=== PATIENT | female | born 1960 | race Caucasian/White ===

== ENCOUNTER 2024-03-28 11:57 | Inpatient (IN) | payer MEDICARE, SELFPAY ==
[2024-03-28 11:59] VITALS: BP 124/89; PULSE 68; RESP 16; TEMP 36.8; O2SAT 97; BMI 26.4
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
[2024-03-28 12:38] LABS: Basophils # 0.1 10^3/uL (0.0-0.1); Basophils % 1.1 %; Eosinophils # 0.2 10^3/uL (0.0-0.8); Eosinophils % 3.2 %; Lymphocytes # 1.9 10^3/uL (0.8-4.8); Lymphocytes % 33.6 %; Mean Corpuscular HGB Conc 31.8 g/dL (30-55); Mean Corpuscular Hemoglobin 28.6 pg (27-33); Monocytes # 0.6 10^3/uL (0.2-0.9); Monocytes % 9.8 %; Neutrophils # 2.98 10^3/uL (1.8-7.7); Neutrophils % 52.3 %; Nucleated Red Blood Cells % 0 %; Platelet Count 264 10^3/cmm (157-399); Red Blood Count 4.89 10^6/uL (3.85-5.65); Red Cell Distribution Width 11.9 % (12.1-15.1); White Blood Count 5.69 10^3/uL (3.29-11.43)
--- NOTE | 2024-03-28 12:46 | PC.NURSE ---
PT UPSET ABOUT BEING HERE. PT REQUESTING SHOES AND STATED I WANT SHOES. EVERY OTHER PERSON HAS SHOES. PT EDUCATED ON THE NEED FOR ALL BELONGINGS TO BE REMOVED, INCLUDING SHOES, FOR PTS. PT STATED I'M NOT A PATIENT. I AM JUST SUICIDAL. PT EDUCATED THE PT ON THAT BEING THE REASON SHE IS HERE. PT STATED I AM ONLY SUICIDAL DUE TO BEING HERE. IT HURTS MY HEART. I JUST WANT TO GO HOME. PT EDUCATED SHE CANNOT GO HOME YET DUE TO BEING ON A 96 HOUR HOLD.
[2024-03-28] MEDS: LORazepam 2 mg/mL INJ 1 mL 1 MG IM (12:51)
[2024-03-28 12:54] LABS: Alanine Aminotransferase 104 U/L (0-33); Albumin Level 4.2 g/dL (3.5-5.2); Alkaline Phosphatase 159 U/L (35-105); Anion Gap 15.6 (5-19); Aspartate Amino Transferase 58 U/L (0-32); Blood Urea Nitrogen 18 mg/dL (8-23); Calcium 9.1 mg/dL (8.5-10.5); Carbon Dioxide 29 mmol/L (22-29); Chloride 98 mmol/L (98-107); Creatinine Clr Calc Pharmacy 60.6536; Globulin 3.3 g/dL (1.3-4.6); Glomerular Filtration Rate 72.2 mL/min (90-130); Glucose 102 mg/dL (65-115); Osmolality Calculated 288 mOsm/kg (285-295); Potassium 4.6 mmol/L (3.5-5.1); Sodium 138 mmol/L (136-145); Total Bilirubin 0.3 mg/dL (0.15-1.2); Total Protein 7.5 g/dL (6.6-8.7)
[2024-03-28 13:05] LABS: Acetaminophen < 5.0 ug/mL (10-30); Alcohol Level < 10 mg/dL (0-10); Salicylate < 0.3 mg/dL (3-10)
[2024-03-28 13:10] LABS: Amphetamines Screen Urine Negative (Negative); Barbiturates Screen Urine Negative (Negative); Benzodiazepines Screen Urine Negative (Negative); Cocaine Screen Urine Negative (Negative); Opiate Screen Urine Negative (Negative); PCP Screen Urine Negative (Negative); THC Screen Urine Positive (Negative)
--- NOTE | 2024-03-28 13:10 | PC.NURSE ---
96 hr rights reviewed with patient @1212 with assistance of [facility] compliance officer Joel Garcia All education reviewed at this time. Patient appears to be altered to place that she is currently in. She verbalized understanding to the hold, but does not seem to fully comprehend what the hold entails. Patient copy was left with patient. Pt had to be convinced to change out of personal clothing, with a lot of reassurance that her shoes and clothes would be returned to her at the time of her discharge. Pt states that she is not a patient here and requests that we call Officer Leydi back to take her back home. Pt denied any needs when asked.
[2024-03-28 14:30] VITALS: BP 104/47; PULSE 65; O2SAT 97
[2024-03-28 14:45] VITALS: BP 128/75; PULSE 114; RESP 17; O2SAT 94
--- NOTE | 2024-03-28 15:14 | PC.NURSE ---
NEW ORDERS RECEIVED FROM DR. OLIVER TO HAVE LAB RUN URINALYSIS WITH MICRO ON URINE THAT IS ALREADY IN LAB. LAB CALLED AND STATE THEY WILL RUN THE URINE ONCE THE ORDER IS PLACED. NOTIFIED LAB IT WAS PLACED
[2024-03-28 15:17] LABS: Bilirubin Urine Negative (Negative); Blood Urine Negative (Negative); Glucose Urine UA Negative (Normal); Ketones Urine Negative (Negative); Leukocyte Esterase Urine 1+ (Negative); Nitrate Urine Negative (Negative); Protein Urine Negative (Negative); Specific Gravity, Urine 1.016 (1.005-1.030); Urine Appearance Clear (CLEAR); Urine Color Yellow (Yellow); Urobilinogen Urine 0.2 mg/dL (Negative); pH Urine 7.5 (5-7)
[2024-03-28 15:19] LABS: Bacteria Urine None Seen /hpf; Hyaline Casts Urine 0-4 /lpf; RBC Urine 0-2 /hpf (0-2); Squamous Epithelial Cell Urine 0-5 /hpf (0-5); WBC Urine 0-5 /hpf (0-5)
[2024-03-28 15:39] LABS: Add Urine Culture? No
--- NOTE | 2024-03-28 15:41 | PC.NURSE ---
Patient brought in by police. Patient observed trying to hitch hike to [place]. Patient frequently causes 911 asking for a ride to [place]. Patient is confused. Patuient keeps asking patients for a ride to her home. Patient denies suicidal thoughts, homicidal thoughts and hallucinations. Patient fixated on going home, on a dispatcher named Kira, and Leydi, the officer who brought her to the ED
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
--- NOTE | 2024-03-28 16:15 | PC.NURSE ---
NEW ORDERS RECEIVED FROM DR. OLIVER TO RESTART LEVOTHYROXINE 125 MCGS PO DAILY AND REPEAT URINALYSIS WITH CULTURE IF INDICATED TO BE COLLECTED BY STAFF TOMORROW MORNING.
--- NOTE | 2024-03-28 17:20 | PC.NURSE ---
Patient is routinely checking the doors. Patient is perseverating on being taken to [place], on [place], and on the officer, Leydi, who brought her to the hospital.
--- NOTE | 2024-03-28 17:46 | PC.NURSE ---
Per patient's son andrey, patient has no known drug allergies
[2024-03-28] MEDS: OLANZapine 5 mg ODT PO (18:00)
[2024-03-28 19:53] VITALS: BP 125/75; PULSE 93; RESP 18; TEMP 36.9; O2SAT 97
[2024-03-28] MEDS: LORazepam 2 mg Tablet PO (21:37)
[2024-03-28] MEDS: ziprasidone hcl 20 mg Capsule PO (21:37)
[2024-03-28] MEDS: diphenhydrAMINE 50 mg Capsule PO (21:37)
--- NOTE | 2024-03-28 21:45 | PC.NURSE ---
patient in bed resting with eyes closed after PRN Ativan 2mg PO, Benadryl 50mg PO and Geodon 20mh PO. Given to patient for increased agitation / agression R/T wanting her clothes, purse and wanting to leave.
--- NOTE | 2024-03-29 06:28 | PC.NURSE ---
VS not collected per charge nurse resp 17
[2024-03-29] MEDS: levothyroxine 125 mcg Tablet PO (09:17)
[2024-03-29] MEDS: diphenhydrAMINE 50 mg/mL SDV 1mL IM (13:55)
[2024-03-29] MEDS: haloperidol inj 5 mg/mL INJ 1 mL IM (13:55)
[2024-03-29] MEDS: LORazepam 2 mg/mL INJ 1 mL IM (13:55)
[2024-03-29 14:00] VITALS: BP 133/59; PULSE 79; RESP 18; TEMP 36.9; O2SAT 94
--- NOTE | 2024-03-29 14:00 | W.PM.NPUH&PS ---
Providers/Chief Complaint Admitting Physician: Chidi Hatch MD Chief Complaint: 96 Hold [facility] NPU History of Present Illness Osiris Teran is a 63 year old female who presented to the emergency department with the following report: Chief Complaint: Psychiatric Symptoms Stated Complaint: 96 Hold Time Seen by Provider: 03/28/24 12:00 Source: patient Mode of arrival: EMS Limitations: altered mental status History of Present Illness: Patient is a 63-year-old female presents to ED today on a 96-hour hold. According to [facility] paperwork, she was repeatedly calling 911 soliciting somebody to try to drive her to [place]. When the [employer] department arrived at her house she made comments of wanting to harm herself and her son. She made a comment that she wanted to purchase a gun to shoot her son if he would not take her to [place]. She was also consulted on by our [facility] Crisis Intervention team who recommended mental health evaluation. She reportedly has dementia. She states she wants to get back to [place] as she has a job waiting for her there. She states that she needs a rifle so that when her son picks on her she can just shoot him with it. She reportedly called the [employer]'s office 42 times stating she would pay $4000 dollars for them to get her a [employer]Ha[employer] and transport her to [place]. She had been located in [facility] trying to get a ride from anybody that would take her to [place]. I did reach out to patient's son, Stone ([phone]) who provides further history. He states she has lived in [place] over the past 20 years. He states over the past 5 to 10 years they have noticed significant cognitive decline. They report she was not able to keep a job, had gotten into some drug use, at 1 point got a DUI with cocaine in her system. She started having more erratic behavior coupled with periods of high energy. She started feeling unsatisfied with living in [place] and wanted to come back to [place]. Son states they were able to purchase an RV for her and she has been here in [place] since December 2023. Stone is reportedly in the process of trying to obtain guardianship and has an appointment scheduled for 04/26. complaint: altered mental status History of same: Yes Relieving factors: none Exacerbating factors: none Treatments prior to arrival: none She was admitted to the neuropsychiatric unit for definitive treatment of those issues. She presented unknown to [facility] psychiatry through inpatient or outpatient services but is reported to have had significant outpatient and inpatient services and [place] as well as significant drug and alcohol treatment and exposure with reported long history is of methamphetamine and cocaine use. She is a poor and incapable historian as she is only able to identify where she has been and where she lives but all history she gives otherwise is inaccurate and she just continues to perseverate about wanting to leave and getting her stuff. Her son who is in town identifies that she is confused about her situation and wanting someone to take her to [place]. She reportedly called the [employer]or[employer] model [employer]'s office at least 42 times asking for a gun and reporting she was in a used a gun to kill her son if he does not take her to [place]. Stating this the police. She is offering people thousand dollars to drive her back to her place from the hospital that she does not know she is in the hospital. She denied any history of drug use which we know is an accurate and she denied using cannabis Gummies and had no explanation for the 64 mg Gummies and her belongings most of which had been already eaten and about half of the milligrams going towards actual THC. She denied THC use and reports that her son is going to take her to [place] and she needs to just get out of here. This is not the case. We discussed her considering medication. Discussing the risks, benefits and alternatives she did not understand and just continue to perseverate about leaving and whether this short story writer can take her home/out of here. Meds NPU Home Medications Medication Instructions Recorded Confirmed Last Taken Type levothyroxine 125 mcg tablet 125 mcg PO DAILY 03/28/24 03/28/24 Unknown History Allergies Allergy/AdvReac Type Severity Reaction Status Date / Time No Known Allergies Allergy Verified 03/28/24 17:46 Mental Status Exam MSE Comments: This is a well-nourished well-developed white female looking somewhat older than her stated age in hospital scrubs with limited grooming and adequate eye contact. No abnormal movements except for psychomotor agitation. Uncooperative with exam in moderate to extreme distress. Speech was normal rate and volume. Mood described as fine I do not belong here I need to go, affect odd and confused. Thought process linear and at times disorganized with continued perseveration and reasking of questions. Thought content: Patient denies suicidal or homicidal ideation, there were no delusions reported or noted, she denied auditory or visual hallucinations. Attention and concentration were impaired and memory was unreliable but none were formally tested. She is alert and oriented to person and time/date as she knows her birthday is tomorrow. Insight, judgment and impulse control are all impaired. Vitals/I&O/Wt Last Vital Signs Temp 98.4 F 03/29/24 14:00 Pulse 79 03/29/24 14:00 Resp 18 03/29/24 14:00 BP 133/59 03/29/24 14:00 Pulse Ox 94 03/29/24 14:00 O2 Del Method Room Air 03/28/24 19:53 Weight last 48 hrs Weight 63.503 kg Data NPU 03/28/24 12:30 03/28/24 12:30 A&P Assessment and plan (1) Homicidal ideation: (2) Psychosis: (3) Cannabis use disorder: Plan This is a 63-year-old white female with a long history of mental health and addiction issues throughout her life with a preponderance of addiction issues reported per family reports through collateral information. She however presents today floridly psychotic, confused about why she is here, perseverating about getting her closer to being able to get back to her purse without any understanding of where she is or the purpose of this hospitalization. She presented positive for cannabis on the drug screen and we had cannabis Gummies and her belongings. We will need to figure out how to break her psychosis to figure out what element of this is cannabis induced and if there is any element of dementia present. 1. Continue off of medication for now, but will likely need to be moved to forced medication. 2. Continue every 15 minute checks for safety. 3. Encourage individual, group and milieu therapy. 4. Obtain collateral information. 5. Will quickly change the 96-hour hold to 21-day hold. 6. Encourage sober living treatment after discharge at the highest level care to which she is willing to commit. Involuntary Hold Information 96 Hour Hold: 96 Hour Involuntary Admission: Yes 96 Hour Hold Ending Date: 04/03/24 96 Hour Hold Ending Time: 12:00 Other Hold: Hold End Date: 04/03/23 Attestations NPU Medical Necessity Statement*: Inpatient hospitalization is medically necessary and the clinically appropriate intervention at this time. We will monitor medications and make changes as indicated. She will be in the hospital over 2 midnights. Likely length of stay 10-14 days. Coding Level of Care Code Acute Code for Chg Fwd Diagnoses Homicidal ideation R45.850 Psychosis F29 Cannabis use disorder F12.90
--- NOTE | 2024-03-29 14:17 | PC.NURSE ---
PRN MEDS PT GIVEN 5 MG HALDOL IM, 2MG ATIVAN IM , AND 50MG BENADRYL, IM FOR HER CONSTANT CONFUSION AND BEHAVIOR, WANTING TO LEAVE, WANTING HER CLOTHES, AND WANTING TO LEAVE.
[2024-03-30 06:00] VITALS: BP 129/82; PULSE 75; RESP 16; TEMP 36.9; O2SAT 97
[2024-03-30] MEDS: LORazepam 2 mg Tablet PO ×2 (08:17→13:33)
[2024-03-30] MEDS: levothyroxine 125 mcg Tablet PO (08:17)
[2024-03-30 09:02] LABS: Bilirubin Urine Negative (Negative); Blood Urine Negative (Negative); Glucose Urine UA Negative (Normal); Ketones Urine Negative (Negative); Leukocyte Esterase Urine Negative (Negative); Nitrate Urine Negative (Negative); Protein Urine Negative (Negative); Specific Gravity, Urine 1.012 (1.005-1.030); Urine Appearance Clear (CLEAR); Urine Color Yellow (Yellow); Urobilinogen Urine 0.2 mg/dL (Negative); pH Urine 7.5 (5-7)
[2024-03-30 09:07] LABS: Add Urine Microscopic? YES; Bacteria Urine Trace /hpf; Hyaline Casts Urine 0-4 /lpf; RBC Urine 0-2 /hpf (0-2); Squamous Epithelial Cell Urine 0-5 /hpf (0-5); WBC Urine 0-5 /hpf (0-5)
--- NOTE | 2024-03-30 13:25 | PC.NURSE ---
Patient continuously asking if she can have her purse and clothing. Both the doctor and nurses attempted to redirect her multiple times with no success. This RN and a HORSE IDENTIFIER were able to redirect her to her room after another patient came out of their room and yelled, shut the fuck up. I'm about to beat your ass. You just keep fucking talking and talking all fucking morning. Patient was reassured repeatedly that her belongings were safely locked away. Patient checking nurses' station door to attempt to get back where her belongings are. This RN asked her if she would like to color, read, talk in her room, or try anything else to cope and relax. She refused and continued to disrupt other patients and staff. This RN spoke with Dr. Hatch who ordered her to be put in seclusion. HORSE IDENTIFIER, Monse, with her at this time. Patient was released from seclusion within minutes (see restraint documentation) after she contracted to calm and go relax in her room.
[2024-03-30] MEDS: haloperidol 5 mg Tablet PO ×2 (13:32→14:24)
[2024-03-30] MEDS: diphenhydrAMINE 50 mg Capsule PO (13:32)
[2024-03-30 14:00] VITALS: BP 133/81; PULSE 88; RESP 18; TEMP 37; O2SAT 98
--- NOTE | 2024-03-30 14:24 | PC.NURSE ---
Dr. Hatch requested this RN put in a one time order for another haldol 5mg po in an attempt to calm the patient. Patient took medication willingly.
--- NOTE | 2024-03-30 14:41 | PC.NURSE ---
Addendum entered by Ghada Mckenna RN 03/30/24 14:59: security was also notified and arrived after seclusion was performed Original Note: Patient continues to be intrusive at nurses' station and is causing other patients to yell out due to her repeating herself over and over despite attempts to redirect her several times. This RN offered to talk to her in her room about concerns she had, but she refused. Patient asked, can you get my purse? When is the presidential helicopter crew chief coming? over 50+ times. Staff, including nurses and CNAs attempted to answer her questions, reassure her that her belongings were safe and locked up, and that there was not a presidential helicopter crew chief coming to get her. She continued to perseverate and attempting to open doors to the nurses' station, becoming more and more agitated that she would not be allowed to have her purse. Eventually doctor keita ordered her to be placed back in seclusion. This RN and PORTRAIT STUDIO PHOTOGRAPHER, Diann, walked patient to the seclusion room and she then began to refuse to go into the room. After trying to persuade her to go into the room to relax the patient tried to exit the hallway and this RN and Diann had to put her in a manual hold on bilateral wrists and escort patient to the seclusion room. No patient or staff harm was caused. Patient would not contract with staff for over 30 minutes to maintain calm and cooperative with us. This RN attempted to get her to take deep breaths and she replied, I don't trust you. She was reassured that she was not being punished and that we were trying to help her remain calm in her situation. She pounded on the door and pushed her call light repeatedly. At this point, this RN consulted with Dr. Keita on what to do. He ordered a one time order of another haldol 5mg po. This RN approached patient and was able to get her to take the medication and contract to go to her room and try to relax. Patient agreed. This RN and the patient talked about how if we work together it will produce the best outcome for her. Patient is now resting in her room.
[2024-03-30] MEDS: LORazepam 2 mg/mL INJ 1 mL IM (17:10)
[2024-03-30] MEDS: diphenhydrAMINE 50 mg/mL SDV 1mL IM (17:10)
[2024-03-30] MEDS: haloperidol inj 5 mg/mL INJ 1 mL IM (17:10)
[2024-03-30] MEDS: ziprasidone hcl 20 mg Capsule PO (18:01)
--- NOTE | 2024-03-30 18:45 | PC.NURSE ---
Patient not redirectable and perseverating on wanting her purse and clothing from behind the nurses' station. She asks everyone that she sees to let her into the nurses' station. Patient then became fixated on a new patient on the unit. She continued to insist she needed to talk to him. Staff advised her to stay away from the patient's room as this patient could potentially be violent. She refused to comply with this nurse and continued to attempt to walk to his room. Staff eventually had to administer benadryl 50mg IM into the right deltoid, haldol 5mg IM into the left deltoid, and ativan 2mg IM into the left deltoid. Patient tolerated shots well. However, shortly after staff found her wandering into the same patient's room again and she was redirected. Patient is now on the phone with her son.
--- NOTE | 2024-03-30 19:36 | P.NPUPN_ITS ---
Subjective NPU 2 Subjective: Patient presented today with the same difficulties from yesterday. Staff reports of her wandering aimlessly and coming to the window asking the same questions repeatedly with significant perseveration. Asking about having bananas, eating 2 bananas and then returning to the window moments later asking if she was going to ever be able to get those bananas. She continues to ask the same questions about getting her purse, being given her close, wondering why she is here, offering people $1000 - $3000 to drive her to her house. She continued to demonstrate limited insight when asked questions or redirected and we discussed the fact that there would be a hearing to address the need for medications which she denied any need for interventions. Mental Status Exam 2 MSE Comments: This is a well-nourished well-developed white female looking somewhat older than her stated age in hospital scrubs with limited grooming and adequate eye contact. No abnormal movements except for psychomotor agitation. Uncooperative with exam in moderate to extreme distress. Speech was normal rate and volume. Mood described as fine I do not belong here I need to go, affect odd and confused. Thought process linear and at times disorganized with continued perseveration and reasking of questions. Thought content: Patient denies suicidal or homicidal ideation, there were no delusions reported or noted, she denied auditory or visual hallucinations. Attention and concentration were impaired and memory was unreliable nd clearly impaired with significant redirection needed on the same subject again and again,but none were formally tested. She is alert and oriented to person and time/date as she knows her birthday is tomorrow. Insight, judgment and impulse control are all impaired. Vitals/I&O/Wt Last Vital Signs Temp 98.6 F 03/30/24 14:00 Pulse 88 03/30/24 14:00 Resp 18 03/30/24 14:00 BP 133/81 03/30/24 14:00 Pulse Ox 98 03/30/24 14:00 O2 Del Method Room Air 03/30/24 06:00 Data NPU 03/28/24 12:30 03/28/24 12:30 A&P Assessment and plan (1) Homicidal ideation: (2) Psychosis: (3) Cannabis use disorder: Plan This is a 63-year-old white female with a long history of mental health and addiction issues throughout her life with a preponderance of addiction issues reported per family reports through collateral information. She however presents today floridly psychotic, confused about why she is here, perseverating about getting her closer to being able to get back to her purse without any understanding of where she is or the purpose of this hospitalization. She presented positive for cannabis on the drug screen and we had cannabis Gummies and her belongings. We will need to figure out how to break her psychosis to figure out what element of this is cannabis induced and if there is any element of dementia present. 1. Continue off of medication for now, but will likely need to be moved to forced medication. 2. Continue every 15 minute checks for safety. 3. Encourage individual, group and milieu therapy. 4. Obtain collateral information. 5. Will quickly change the 96-hour hold to 21-day hold.21-day hold paperwork filed and her hearing will be tomorrow at 2 PM. 6. Encourage sober living treatment after discharge at the highest level care to which she is willing to commit. Involuntary Hold Information 2 96 Hour Hold: 96 Hour Involuntary Admission: Yes 96 Hour Hold Ending Date: 04/03/24 96 Hour Hold Ending Time: 12:00 Other Hold: Hold End Date: 04/03/23 Attestations NPU 2 Medical Necessity Statement*: Inpatient hospitalization is medically necessary and the clinically appropriate intervention at this time. We will monitor medications and make changes as indicated. She will be in the hospital over 2 midnights. Likely length of stay 10-14 days. Coding Level of Care Code Acute Code for Chg Fwd Diagnoses Homicidal ideation R45.850 Psychosis F29 Cannabis use disorder F12.90
[2024-03-30 20:13] VITALS: BP 147/80; PULSE 84; RESP 18; TEMP 36.6; O2SAT 97
[2024-03-30] MEDS: hyDROXYzine 25 mg Capsule 50 MG PO (21:41)
[2024-03-30] MEDS: trazodone 50 mg Tablet PO (21:41)
[2024-03-30] MEDS: OLANZapine 5 mg ODT PO (21:42)
[2024-03-31 06:00] VITALS: BP 128/75; PULSE 78; RESP 18; TEMP 36.4; O2SAT 96
[2024-03-31] MEDS: levothyroxine 125 mcg Tablet PO (08:28)
[2024-03-31] MEDS: ziprasidone hcl 20 mg Capsule PO ×3 (10:07→22:19)
--- NOTE | 2024-03-31 12:42 | P.NPUPN_ITS ---
Subjective NPU 2 Subjective: Patient presented today with the same difficulties from yesterday. Staff reports of her wandering aimlessly and coming to the window asking the same questions repeatedly with significant perseveration. She seemed to not understand that she would have a hearing today for the most part and when she did she understood it as a meeting to determine when she would leave today. She continued to demonstrate limited insight when asked questions or redirected and she denied any need for interventions. Mental Status Exam 2 MSE Comments: This is a well-nourished well-developed white female looking somewhat older than her stated age in hospital scrubs with limited grooming and adequate eye contact. No abnormal movements except for psychomotor agitation. Uncooperative with exam in moderate to extreme distress. Speech was normal rate and volume. Mood described as fine I do not belong here I need to go, affect odd and confused. Thought process linear and at times disorganized with continued perseveration and reasking of questions. Thought content: Patient denies suicidal or homicidal ideation, there were no delusions reported or noted, she denied auditory or visual hallucinations. Attention and concentration were impaired and memory was unreliable nd clearly impaired with significant redirection needed on the same subject again and again,but none were formally tested. She is alert and oriented to person and time/date as she knows her birthday is tomorrow. Insight, judgment and impulse control are all impaired. Vitals/I&O/Wt Last Vital Signs Temp 97.6 F 03/31/24 06:00 Pulse 78 03/31/24 06:00 Resp 18 03/31/24 06:00 BP 128/75 03/31/24 06:00 Pulse Ox 96 03/31/24 06:00 O2 Del Method Room Air 03/31/24 06:00 Data NPU 03/28/24 12:30 03/28/24 12:30 A&P Assessment and plan (1) Homicidal ideation: (2) Psychosis: (3) Cannabis use disorder: Plan This is a 63-year-old white female with a long history of mental health and addiction issues throughout her life with a preponderance of addiction issues reported per family reports through collateral information. She however presents today floridly psychotic, confused about why she is here, perseverating about getting her closer to being able to get back to her purse without any understanding of where she is or the purpose of this hospitalization. She presented positive for cannabis on the drug screen and we had cannabis Gummies and her belongings. We will need to figure out how to break her psychosis to figure out what element of this is cannabis induced and if there is any element of dementia present. 1. Continue off of medication for now, but will likely need to be moved to forced medication. 2. Continue every 15 minute checks for safety. 3. Encourage individual, group and milieu therapy. 4. Obtain collateral information. 5. Will quickly change the 96-hour hold to 21-day hold.21-day hold paperwork filed and her hearing will be today at 2 PM. 6. Encourage sober living treatment after discharge at the highest level care to which she is willing to commit. Involuntary Hold Information 2 96 Hour Hold: 96 Hour Involuntary Admission: Yes 96 Hour Hold Ending Date: 04/03/24 96 Hour Hold Ending Time: 12:00 Other Hold: Hold End Date: 04/03/24 Attestations NPU 2 Medical Necessity Statement*: Inpatient hospitalization is medically necessary and the clinically appropriate intervention at this time. We will monitor medications and make changes as indicated. She will be in the hospital over 2 midnights. Likely length of stay 10-14 days. Coding Level of Care Code Acute Code for g Fwd Diagnoses Homicidal ideation R45.850 Psychosis F29 Cannabis use disorder F12.90
[2024-03-31 14:00] VITALS: BP 126/69; PULSE 83; RESP 18; TEMP 36.6; O2SAT 98
[2024-03-31] MEDS: hyDROXYzine 25 mg Capsule 50 MG PO (17:00)
[2024-03-31] MEDS: LORazepam 2 mg Tablet PO (22:19)
[2024-03-31] MEDS: trazodone 50 mg Tablet PO (22:19)
[2024-03-31] MEDS: diphenhydrAMINE 50 mg Capsule PO (22:19)
--- NOTE | 2024-03-31 23:06 | PC.NURSE ---
pt ref vs charge nurse notified. resp 16
--- NOTE | 2024-04-01 06:53 | PC.NURSE ---
pt ref vs charge notified resp 18
[2024-04-01] MEDS: ziprasidone hcl 20 mg Capsule PO (08:07)
[2024-04-01] MEDS: levothyroxine 125 mcg Tablet PO (08:07)
--- NOTE | 2024-04-01 08:49 | P.NPUPN_ITS ---
Subjective NPU 2 Subjective: Patient presented today reporting that she is fine. She continued to have perseverative behavior to the extreme per staff reports and direct observation. She continued to report that events had not transpired the way that they had. She denied having a hearing where she was put on a 21-day hold, she denied having come to the hospital on Wednesday reporting that she came yesterday or the day before on her birthday. She denied any need to be here and denied the need for medication. Mental Status Exam 2 MSE Comments: This is a well-nourished well-developed white female looking somewhat older than her stated age in hospital scrubs with limited grooming and adequate eye contact. No abnormal movements except for psychomotor agitation. Uncooperative with exam in moderate to extreme distress. Speech was normal rate and volume. Mood described as fine I do not belong here I need to go, affect odd and confused. Thought process linear and at times disorganized with continued perseveration and reasking of questions. Thought content: Patient denies suicidal or homicidal ideation, there were no delusions reported or noted, she denied auditory or visual hallucinations. Attention and concentration were impaired and memory was unreliable nd clearly impaired with significant redirection needed on the same subject again and again,but none were formally tested. She is alert and oriented to person and time/date as she knows her birthday is tomorrow. Insight, judgment and impulse control are all impaired. Vitals/I&O/Wt Last Vital Signs Temp 97.9 F 03/31/24 14:00 Pulse 83 03/31/24 14:00 Resp 18 03/31/24 14:00 BP 126/69 03/31/24 14:00 Pulse Ox 98 03/31/24 14:00 O2 Del Method Room Air 03/31/24 06:00 Data NPU 03/28/24 12:30 03/28/24 12:30 A&P Assessment and plan (1) Homicidal ideation: (2) Psychosis: (3) Cannabis use disorder: Plan This is a 63-year-old white female with a long history of mental health and addiction issues throughout her life with a preponderance of addiction issues reported per family reports through collateral information. She however presents today floridly psychotic, confused about why she is here, perseverating about getting her closer to being able to get back to her purse without any understanding of where she is or the purpose of this hospitalization. She presented positive for cannabis on the drug screen and we had cannabis Gummies and her belongings. We will need to figure out how to break her psychosis to figure out what element of this is cannabis induced and if there is any element of dementia present. 1. Initiate Invega 6 mg p.o. daily and consider Haldol 5 mg IM or Geodon 20 mg IM for p.o. refusal. 2. Continue every 15 minute checks for safety. 3. Encourage individual, group and milieu therapy. 4. Obtain collateral information. 5. Will quickly change the 96-hour hold to 21-day hold.21-day hold paperwork filed and her hearing will be today at 2 PM. 6. Encourage sober living treatment after discharge at the highest level care to which she is willing to commit. Involuntary Hold Information 2 96 Hour Hold: 96 Hour Involuntary Admission: Yes 96 Hour Hold Ending Date: 04/03/24 96 Hour Hold Ending Time: 12:00 Other Hold: Hold End Date: 04/03/24 Attestations NPU 2 Medical Necessity Statement*: Inpatient hospitalization is medically necessary and the clinically appropriate intervention at this time. We will monitor medications and make changes as indicated. She will be in the hospital over 2 midnights. Likely length of stay 10-14 days. Coding Level of Care Code Acute Code for [facility] Fwd Diagnoses Homicidal ideation R45.850 Psychosis F29 Cannabis use disorder F12.90
--- NOTE | 2024-04-01 09:42 | PC.NURSE ---
Patient constantly at window, asking this nurse to bring her purse and clothing to her room. Patient said that she will write this nurse a check for $1000 if she is given her belongings. Despite numerous attempts to explain to patient the rules of the unit, patient continues to perseverate. Patient observed by [facility] attempting to lodge a patient safety pen into the door into the nurses' station. Pen confiscated.
[2024-04-01] MEDS: OLANZapine 5 mg ODT PO (10:23)
[2024-04-01 14:00] VITALS: BP 99/61; PULSE 104; RESP 18; TEMP 36.7; O2SAT 96
[2024-04-01] MEDS: paliperidone ER 6 mg Tablet PO (16:09)
--- NOTE | 2024-04-01 17:15 | PC.NURSE ---
Patient told this nurse that if she doesn't get out of here (off the unit), that she is going to kill herself. Now, patient is laying on her right side in bed in view of staff.
[2024-04-01 20:09] VITALS: BP 113/76; PULSE 95; RESP 18; TEMP 36.5; O2SAT 98
[2024-04-02 06:00] VITALS: BP 137/82; PULSE 90; RESP 18; TEMP 36.7; O2SAT 96; BMI 26.4
[2024-04-02] MEDS: hyDROXYzine 25 mg Capsule 50 MG PO ×2 (07:51→20:47)
[2024-04-02] MEDS: paliperidone ER 6 mg Tablet PO (07:51)
[2024-04-02] MEDS: levothyroxine 125 mcg Tablet PO (07:51)
--- NOTE | 2024-04-02 08:57 | W.PM.NPUPNS ---
Subjective NPU Subjective: Patient presented today reporting that she is ready to go home. She continued to perseverate over the same issues that she has for the past several days per staff reports and direct observation. She likely called for this typewriter mechanic at least 100 times if not many more during the day. Likewise and similar numbers asking for her purse and for her close and repeating the mantra that she needs to leave and go to [place] and that her son would be there any moment to pick her up. She continues to report that she has only been in the hospital for a couple of days and suggested any report otherwise is a lie. We discussed the risks, benefits and alternatives of initiating thiamine for concerns this could represent some kind of Warnicke's syndrome and she did not necessarily understand but did acknowledge that taking a vitamin could help her do better and we agreed to proceed as is documented in this note. She denied any side effects to her medications. Mental Status Exam MSE Comments: This is a well-nourished well-developed white female looking somewhat older than her stated age in hospital scrubs with limited grooming and adequate eye contact. No abnormal movements except for psychomotor agitation. Uncooperative with exam in moderate to extreme distress. Speech was normal rate and volume. Mood described as fine I do not belong here I need to go, affect odd and confused. Thought process linear and at times disorganized with continued perseveration and reasking of questions. Thought content: Patient denies suicidal or homicidal ideation, there were no delusions reported or noted, she denied auditory or visual hallucinations. Attention and concentration were impaired and memory was unreliable nd clearly impaired with significant redirection needed on the same subject again and again,but none were formally tested. She is alert and oriented to person and time/date as she knows her birthday is tomorrow. Insight, judgment and impulse control are all impaired. Vitals/I&O/Wt Last Vital Signs Temp 98.1 F 04/02/24 06:00 Pulse 90 04/02/24 06:00 Resp 18 04/02/24 06:00 BP 137/82 04/02/24 06:00 Pulse Ox 96 04/02/24 06:00 O2 Del Method Room Air 04/02/24 06:00 Weight last 48 hrs Weight 63.503 kg Data NPU 03/28/24 12:30 03/28/24 12:30 A&P Assessment and plan (1) Homicidal ideation: (2) Psychosis: (3) Cannabis use disorder: Plan This is a 63-year-old white female with a long history of mental health and addiction issues throughout her life with a preponderance of addiction issues reported per family reports through collateral information. She however presents today floridly psychotic, confused about why she is here, perseverating about getting her closer to being able to get back to her purse without any understanding of where she is or the purpose of this hospitalization. She presented positive for cannabis on the drug screen and we had cannabis Gummies and her belongings. We will need to figure out how to break her psychosis to figure out what element of this is cannabis induced and if there is any element of dementia present. 1. Initiated Invega 6 mg p.o. daily and consider Haldol 5 mg IM or Geodon 20 mg IM for p.o. refusal. Got a list of the medications that she has been on over the past year or so and we will attempt to identify if there is anything else we should restart or might explain her presentation. Initiate thiamine 100 mg p.o. twice daily in case this reflects some kind of Warnicke presentation. 2. Continue every 15 minute checks for safety. 3. Encourage individual, group and milieu therapy. 4. Obtain collateral information. 5. Will quickly change the 96-hour hold to 21-day hold.21-day hold paperwork filed and her hearing will be 03/31/2024 at 2 PM. She was placed on a 21-day hold on 03/31/2024 6. Encourage sober living treatment after discharge at the highest level care to which she is willing to commit. Involuntary Hold Information 96 Hour Hold: 96 Hour Involuntary Admission: Yes 96 Hour Hold Ending Date: 04/03/24 96 Hour Hold Ending Time: 12:00 Other Hold: Hold End Date: 04/03/24 Attestations NPU Medical Necessity Statement*: Inpatient hospitalization is medically necessary and the clinically appropriate intervention at this time. We will monitor medications and make changes as indicated. Likely length of stay 10-14 days. Coding Level of Care Code Acute Code for [facility] Fwd Diagnoses Homicidal ideation R45.850 Psychosis F29 Cannabis use disorder F12.90
[2024-04-02] MEDS: OLANZapine 5 mg ODT PO (12:36)
[2024-04-02 13:55] VITALS: BP 125/75; PULSE 97; RESP 20; TEMP 36.5; O2SAT 98
[2024-04-02] MEDS: haloperidol 5 mg Tablet PO (14:25)
--- NOTE | 2024-04-02 14:28 | PC.NURSE ---
Patient is unable to visually identify Dr. Hatch. This nurse observed patient talking to Dr. Hatch, referencing that a said that she can leave today. Patient says that she has been here since her birthday on , that on Wednesday, she was in [place]. Patient appears to have a poor short term memory. Staff are constantly having to remind patient that she is not leaving today, that she cannot have her belongings, and what the doctor's name is. Staff continuously reassure patient that her belongings are safe and that she will get them all back when she is discharged. Patient says that part of her once to , that she wants to kill herself. If she gets her box, this will make her not want to kill herself.
--- NOTE | 2024-04-02 15:41 | PC.NURSE ---
Verbal order from Dr. Hatch for thiamine 100mg PO BID
[2024-04-02] MEDS: thiamine 100 mg Tablet PO (17:48)
[2024-04-02] MEDS: trazodone 50 mg Tablet PO (20:47)
[2024-04-02 21:03] VITALS: RESP 18
--- NOTE | 2024-04-02 21:03 | PC.NURSE ---
Patient refused charge nurse notified.
[2024-04-03 06:00] VITALS: RESP 18
--- NOTE | 2024-04-03 06:42 | PC.NURSE ---
Patient refused vitals. Charge nurse notified
[2024-04-03] MEDS: thiamine 100 mg Tablet PO ×2 (08:18→18:05)
[2024-04-03] MEDS: paliperidone ER 6 mg Tablet PO (08:18)
[2024-04-03] MEDS: ziprasidone hcl 20 mg Capsule PO ×2 (08:18→18:05)
[2024-04-03] MEDS: levothyroxine 125 mcg Tablet PO (08:18)
--- NOTE | 2024-04-03 12:08 | PC.NURSE ---
needs constant redirection from staff, cont to linger at nurses station asking the same questions when will Doctor see me, when can I have my box of clothes, I want to go to [place] to see my , I'm going to go call my son again staff has to constantly redirect patient away from nurses station, patient will wander to her room for maybe 20 seconds then come right back to nurses station again asking staff the same questions that staff just gave her answers too less than a minute ago.
--- NOTE | 2024-04-03 13:40 | PC.NURSE ---
NEW ORDERS RECEIVED FROM DR. OLIVER TO COLLECT UA WITH MICRO IF INDICATED, UDS, CBC, CMP, THIAMINE LEVEL, TSH, T3,T4 AND T FREE TOTAL. ORDERS PLACED WILL HAVE NURSE GENERAL DUTY COLLECT URINE. LAB TO COLLECT BLOOD LEVELS.
[2024-04-03 14:00] VITALS: BP 134/74; PULSE 75; RESP 16; TEMP 36.7; O2SAT 98
[2024-04-03] MEDS: haloperidol 5 mg Tablet PO (14:13)
[2024-04-03] MEDS: diphenhydrAMINE 50 mg Capsule PO (14:13)
[2024-04-03] MEDS: LORazepam 2 mg Tablet PO (14:13)
--- NOTE | 2024-04-03 14:16 | PC.NURSE ---
ATIVAN 2MG, HALDOL 5 MG AND BENADRYL 50 MG WAS GIVEN ORDERED FOR INCREASED AGITATION, ANXIETY AND AT THE NURSES STATION ASKING THE SAME QUESTION REPEATEDLY. PT MADE STATEMENTS THAT IF SHE WAS NOT ALLOWED TO LEAVE RIGHT NOW I WILL KILL MYSELF, PT THEN RECANTED HER STATEMENT SAYING I'M NOT GOING TO KILL MYSELF I WAS JUST SAYING THAT'S WHAT I TOLD DR. OLIVER THE OTHER DAY AND NOW I CAN'T LEAVE. PT HAS BEEN VERBALLY REDIRECTED AWAY FROM THE DESK AND INFORMED THAT SHE IS NOT DISCHARGING TODAY. PT WILL THEN COME TO THE DESK AND DEMAND HER PURSE, MY BOX AND MY PHONE. PT IS REMINDED EVERY 2-3 MINUTES THAT SHE CAN NOT LEAVE OR HAVE HER BOX. PT CALLS SON REPEATEDLY TO COME PICK HER UP. PT IS CONSTANTLY REMINDED THAT SHE CAN NOT HAVE PURSE OR BOX UNTIL DISCHARGE. SUPPORT VOICED.
[2024-04-03 15:22] LABS: Bilirubin Urine Negative (Negative); Blood Urine Negative (Negative); Glucose Urine UA Negative (Normal); Ketones Urine Negative (Negative); Leukocyte Esterase Urine 2+ (Negative); Nitrate Urine Negative (Negative); Protein Urine Negative (Negative); Specific Gravity, Urine 1.013 (1.005-1.030); Urine Appearance Clear (CLEAR); Urine Color Yellow (Yellow); Urobilinogen Urine 0.2 mg/dL (Negative)
[2024-04-03 15:23] LABS: Basophils # 0.1 10^3/uL (0.0-0.1); Basophils % 0.8 %; Eosinophils # 0.1 10^3/uL (0.0-0.8); Hematocrit 40.8 % (36-47); Lymphocytes # 2.1 10^3/uL (0.8-4.8); Mean Corpuscular HGB Conc 32.1 g/dL (30-55); Mean Corpuscular Hemoglobin 28.3 pg (27-33); Mean Corpuscular Volume 88.1 fl (85-98); Mean Platelet Volume 9.1 fL (7.4-10.4); Monocytes # 0.5 10^3/uL (0.2-0.9); Monocytes % 9.2 %; Neutrophils # 3.11 10^3/uL (1.8-7.7); Neutrophils % 52.8 %; Nucleated Red Blood Cells % 0 %; Platelet Count 266 10^3/cmm (157-399); Red Blood Count 4.63 10^6/uL (3.85-5.65); Red Cell Distribution Width 11.9 % (12.1-15.1); White Blood Count 5.89 10^3/uL (3.29-11.43)
[2024-04-03 15:24] LABS: Add Urine Microscopic? YES; Bacteria Urine None Seen /hpf; RBC Urine 0-2 /hpf (0-2); Squamous Epithelial Cell Urine 0-5 /hpf (0-5)
[2024-04-03 15:26] LABS: Add Urine Culture? No
--- NOTE | 2024-04-03 15:39 | PC.NURSE ---
NEW ORDERS RECEIVED TO CONSULT NEUROLOGY DUE TO DEMENTIA LIKE SYMPTOMS. DR. MARES CONSULTED BY DR. OLIVER AND HAS BEEN CONSULTED.
[2024-04-03 15:43] LABS: Amphetamines Screen Urine Negative (Negative); Barbiturates Screen Urine Negative (Negative); Benzodiazepines Screen Urine Positive (Negative); Cocaine Screen Urine Negative (Negative); Opiate Screen Urine Negative (Negative); PCP Screen Urine Negative (Negative); THC Screen Urine Positive (Negative)
[2024-04-03 15:48] LABS: Alanine Aminotransferase 57 U/L (0-33); Alkaline Phosphatase 155 U/L (35-105); Anion Gap 14.7 (5-19); Aspartate Amino Transferase 37 U/L (0-32); Blood Urea Nitrogen 17 mg/dL (8-23); Calcium 9.4 mg/dL (8.5-10.5); Carbon Dioxide 27 mmol/L (22-29); Chloride 100 mmol/L (98-107); Creatinine Clr Calc Pharmacy 59.8555; Free T4 Free Thyroxine 1.56 ng/dL (0.82-1.77); Globulin 3.1 g/dL (1.3-4.6); Glucose 106 mg/dL (65-115); Osmolality Calculated 288 mOsm/kg (285-295); Potassium 3.7 mmol/L (3.5-5.1); Sodium 138 mmol/L (136-145); Thyroid Stimulating Hormone 0.66 uIU/mL (0.27-4.20); Total Bilirubin 0.3 mg/dL (0.15-1.2); Total Protein 7.1 g/dL (6.6-8.7)
--- NOTE | 2024-04-03 15:55 | W.PM.NPUPNS ---
Subjective NPU Subjective: Patient presented today continuing to be unchanged. She continues to ask random males if they are this underwriter solicitation director. Regardless of their appearance. Asking security officers, janitorial staff excetra whether they are Dr. Hatch. Then when she sees this underwriter solicitation director for periods of time she does not seem to recognize this underwriter solicitation director. We continue to try to redirect her as we discussed the fact that she was here secondary to her cognitive issues and that she would not be leaving until we knew she was safe and we at least felt confident that the psychosis was resolved and if there is an underlying dementia that we will deal with how to manage that from there. We are going to file for the level 2 and we discussed that, but she does not understand any suggestion that she is not leaving tomorrow with her son to drive to [place]. Mental Status Exam MSE Comments: This is a well-nourished well-developed white female looking somewhat older than her stated age in hospital scrubs with limited grooming and adequate eye contact. No abnormal movements except for psychomotor agitation. Uncooperative with exam in moderate to extreme distress. Speech was normal rate and volume. Mood described as fine I do not belong here I need to go, affect odd and confused. Thought process linear and at times disorganized with continued perseveration and reasking of questions. Thought content: Patient denies suicidal or homicidal ideation, there were no delusions reported or noted, she denied auditory or visual hallucinations. Attention and concentration were impaired and memory was unreliable nd clearly impaired with significant redirection needed on the same subject again and again,but none were formally tested. She is alert and oriented to person and time/date as she knows her birthday is tomorrow. Insight, judgment and impulse control are all impaired. Vitals/I&O/Wt Last Vital Signs Temp 98.1 F 04/03/24 14:00 Pulse 75 04/03/24 14:00 Resp 16 04/03/24 14:00 BP 134/74 04/03/24 14:00 Pulse Ox 98 04/03/24 14:00 O2 Del Method Room Air 04/03/24 14:00 Weight last 48 hrs Weight 63.503 kg Data NPU 04/03/24 15:04 04/03/24 15:04 A&P Assessment and plan (1) Homicidal ideation: (2) Psychosis: (3) Cannabis use disorder: Plan This is a 63-year-old white female with a long history of mental health and addiction issues throughout her life with a preponderance of addiction issues reported per family reports through collateral information. She however presents today floridly psychotic, confused about why she is here, perseverating about getting her closer to being able to get back to her purse without any understanding of where she is or the purpose of this hospitalization. She presented positive for cannabis on the drug screen and we had cannabis Gummies and her belongings. We will need to figure out how to break her psychosis to figure out what element of this is cannabis induced and if there is any element of dementia present. 1. Initiated Invega 6 mg p.o. daily and consider Haldol 5 mg IM or Geodon 20 mg IM for p.o. refusal. Got a list of the medications that she has been on over the past year or so and we will attempt to identify if there is anything else we should restart or might explain her presentation. Initiate thiamine 100 mg p.o. twice daily in case this reflects some kind of Warnicke presentation. 2. Continue every 15 minute checks for safety. 3. Encourage individual, group and milieu therapy. 4. Obtain collateral information. 5. Will quickly change the 96-hour hold to 21-day hold.21-day hold paperwork filed and her hearing will be 03/31/2024 at 2 PM. She was placed on a 21-day hold on 03/31/2024 6. Encourage sober living treatment after discharge at the highest level care to which she is willing to commit. 7. Repeat labs. Involuntary Hold Information 96 Hour Hold: 96 Hour Involuntary Admission: Yes 96 Hour Hold Ending Date: 04/03/24 96 Hour Hold Ending Time: 12:00 Other Hold: Hold End Date: 04/21/24 Attestations NPU Medical Necessity Statement*: Inpatient hospitalization is medically necessary and the clinically appropriate intervention at this time. We will monitor medications and make changes as indicated. Likely length of stay 10-14 days. Coding Level of Care Code Acute Code for [facility] Fwd Diagnoses Homicidal ideation R45.850 Psychosis F29 Cannabis use disorder F12.90
[2024-04-03] MEDS: trazodone 50 mg Tablet PO (20:52)
[2024-04-03] MEDS: hyDROXYzine 25 mg Capsule 50 MG PO (20:52)
[2024-04-03 22:00] VITALS: PULSE 122; RESP 18; TEMP 36.6; O2SAT 98
[2024-04-04 06:00] VITALS: RESP 18
--- NOTE | 2024-04-04 06:42 | PC.NURSE ---
Patient refused vitals nurse notified.
[2024-04-04] MEDS: ziprasidone hcl 20 mg Capsule PO (08:00)
[2024-04-04] MEDS: levothyroxine 125 mcg Tablet PO (08:00)
[2024-04-04] MEDS: paliperidone ER 6 mg Tablet PO (08:00)
[2024-04-04] MEDS: thiamine 100 mg Tablet PO ×2 (08:01→17:05)
--- NOTE | 2024-04-04 12:05 | PC.NURSE ---
Per Dr. Murillo, this nurse restarted namenda at 10mg for at bedtime.
--- NOTE | 2024-04-04 13:30 | P.CONIM_ITS ---
Providers/Reason For Consult 2 Consulting Physician/Specialty*: Sanjeev Murillo MD neurology and epilepsy Reason for Consult*: Memory loss and history of dementia Attending Physician: Chidi Hatch MD History of Present Illness History of Present Illness Osiris Teran is a 64 year old female with a history of memory loss and dementia treated with Namenda when the patient lived in [place]. Patient also has a history of cannabis use disorder, psychosis, homicidal ideations. Neurology consult was obtained to assist in the patient's care. Currently the patient is alert and in no apparent distress. The patient stated that she is been in holding in the close psych unit and wants to be released. According to the patient, she was living in [place] with her but travel to [place] with her son and was living in a trailer. According to the nurse caring for the patient the patient was on Namenda for memory loss but this medication was discontinued by the son and patient has been using marijuana Gummies. According to the nurse the son stated that the marijuana Gummies initially helped but the patient has been experiencing more decline in memory. There was reports of the patient stating that she wanted to harm herself and she has been admitted for 21 days. Currently the patient is in no apparent distress. She is alert and oriented to her self she was able to tell me her date of and her complete name and her age. She knew the current year and the month. The patient's reason for being admitted was not quite clear to me when speaking with the patient. The patient stated she is not sure why she was admitted other than the fact that she stated she was upset and said she was thinking about harming herself. The patient currently denies being homicidal suicidal. Metabolic lab for CBC, comprehensive metabolic panel, TSH, free T4 revealed elevated liver enzymes. Thiamine level still pending at the time of this dictation. Other labs were unrevealing. Drug screen positive for benzodiazepines and marijuana. Drug allergies: None Current medications: Synthroid 125 mcg p.o. daily Past medical history: Memory loss/dementia Cannabis use disorder Psychosis Homicidal ideation Past medications: Namenda for memory loss/dementia Habits: The patient currently denies drug use. Social history: The patient informed me she was living with her in [place] but is now living in [place] in a trailer next to a dwelling near her son. Review of Systems 2 General: Reports: 10 or more systems reviewed and unremarkable except in HPI and below Medications/Allergies Home Medications ?Medication ?Instructions ?Recorded ?Confirmed ?Last Taken ?Type levothyroxine 125 mcg tablet 125 mcg PO DAILY 03/28/24 03/28/24 Unknown History Allergies Allergy/AdvReac Type Severity Reaction Status Date / Time No Known Allergies Allergy Verified 03/28/24 17:46 Current Medications Generic Name Dose Route Start Last Admin Trade Name Freq PRN Reason Stop Dose Admin Diphenhydramine HCl 50 mg 03/28/24 14:45 03/30/24 17:10 Diphenhydramine 50 Mg/Ml Sdv 1ml IM 50 mg ONCE PRN Administration Severe Extrapyramidal Symptoms Diphenhydramine HCl 50 mg 03/28/24 20:50 04/03/24 14:13 Diphenhydramine 50 Mg Capsule PO 50 mg Q4H PRN Administration ANXIETY Haloperidol 5 mg 03/28/24 14:45 04/03/24 14:13 Haloperidol 5 Mg Tablet PO 5 mg Q4H PRN Administration AGITATION Haloperidol Lactate 5 mg 03/28/24 14:45 03/30/24 17:10 Haloperidol Inj 5 Mg/Ml Inj 1 Ml IM 5 mg Q4H PRN Administration Severe Aggression Hydroxyzine Pamoate 50 mg 03/28/24 14:45 04/03/24 20:52 Hydroxyzine 25 Mg Capsule PO 50 mg Q6H PRN Administration ANXIETY Levothyroxine Sodium 125 mcg 03/29/24 09:00 04/04/24 08:00 Levothyroxine 125 Mcg Tablet PO 125 mcg DAILY ANIKET Administration Lorazepam 2 mg 03/28/24 14:45 03/30/24 17:10 Lorazepam 2 Mg/Ml Inj 1 Ml IM 2 mg Q4H PRN Administration Severe Aggression Lorazepam 2 mg 03/28/24 20:49 04/03/24 14:13 Lorazepam 2 Mg Tablet PO 2 mg Q4H PRN Administration ANXIETY Olanzapine 5 mg 03/28/24 14:45 04/02/24 12:36 Olanzapine 5 Mg Odt PO 5 mg Q4H PRN Administration Agitation/Psychosis Paliperidone 6 mg 04/01/24 15:52 04/04/24 08:00 Paliperidone Er 6 Mg Tablet PO 6 mg DAILY ANIKET Administration Thiamine Mononitrate 100 mg 04/02/24 18:00 04/04/24 08:01 Thiamine 100 Mg Tablet PO 100 mg BID ANIKET Administration Trazodone HCl 50 mg 03/28/24 14:45 04/03/24 20:52 Trazodone 50 Mg Tablet PO 50 mg BEDTIME PRN Administration SLEEP Ziprasidone 20 mg 03/28/24 17:17 04/04/24 08:00 Ziprasidone Hcl 20 Mg Capsule PO 20 mg Q6H PRN Administration PSYCHOSIS Vitals/I&O/Wt Last Vital Signs Temp 97.8 F 04/03/24 22:00 Pulse 122 H 04/03/24 22:00 Resp 18 04/04/24 06:00 BP 134/74 04/03/24 14:00 Pulse Ox 98 04/03/24 22:00 O2 Del Method Room Air 04/03/24 22:00 Physical Exam 2 Narrative: The patient is alert and oriented to person place. She knew the current year and month and was able to tell me her date of and her age and her complete name. She was able to follow commands. Speech was clear. Head atraumatic. Neck supple. Cranial nerves II through XII grossly intact pupils 4 mm round reactive light and accommodation. Extraocular movements intact. Motor testing grossly nonfocal. Gait was narrow based. Throat clear. Lungs clear. Heart regular rhythm and rate. Extremities were negative for cyanosis Data 04/03/24 15:04 04/03/24 15:04 A&P Assessment and plan (1) Memory loss: Impression: 1. History of memory loss and dementia treated in [place] with Namenda 10 mg p.o. daily 2. History of cannabis use disorder 3. Psychosis Plan: 1. Recommend obtaining lab for B12, folate, and vitamin D 2. Recommend resuming Namenda 10 mg p.o. nightly for memory loss 3. Recommend obtaining copy of any imaging studies performed on the patient's brain when she was in [place]. If no recent studies recommend obtaining head MRI with and without contrast to assess for space-occupying lesion and to assess for temporal lobe and parietal lobe atrophy PDMP PDMP Reviewed: Not Reviewed Consult Attestations 2 Medical Necessity Statement: Patient was evaluated for dementia/memory issues Coding Level of Care Code 23370 Diagnoses Memory loss R41.3
[2024-04-04] MEDS: diphenhydrAMINE 50 mg Capsule PO (13:32)
[2024-04-04] MEDS: haloperidol 5 mg Tablet PO (13:32)
[2024-04-04] MEDS: LORazepam 2 mg Tablet PO (13:32)
--- NOTE | 2024-04-04 13:34 | PC.NURSE ---
Oral B52\ Oral B52 given to patient because of increase in agitation about getting belongings. Patient is upsetting fellow patients.
[2024-04-04 14:00] VITALS: BP 117/73; PULSE 76; RESP 16; TEMP 36.7; O2SAT 98
--- NOTE | 2024-04-04 16:15 | P.NPUPN_ITS ---
Subjective NPU 2 Subjective: Patient presented today reporting that she wanted to get her belongings in person and go home at least 100 times as she has been doing throughout the week. However her psychomotor agitation that has been present has started to slightly dampened per staff reports and direct observation. However there are no changes in the interactions outside of the energy of them. We did have an opportunity to speak to her son who reports that she has been having these types of behaviors for a period of time. However she may have been somewhat functional reporting that she was driving but she has a significant history of addiction and has a pending DUI in [place] from about a year ago where she was positive for cocaine. He reports that she was perseverative about coming here because she was not reportedly happy in [place] but then experienced similar perseverative feelings once she got here asking to be taken back to [place]. Mental Status Exam 2 MSE Comments: This is a well-nourished well-developed white female looking somewhat older than her stated age in hospital scrubs with limited grooming and adequate eye contact. No abnormal movements except for psychomotor agitation. Uncooperative with exam in moderate to extreme distress. Speech was normal rate and volume. Mood described as fine I do not belong here I need to go, affect odd and confused. Thought process linear and at times disorganized with continued perseveration and reasking of questions. Thought content: Patient denies suicidal or homicidal ideation, there were no delusions reported or noted, she denied auditory or visual hallucinations. Attention and concentration were impaired and memory was unreliable nd clearly impaired with significant redirection needed on the same subject again and again,but none were formally tested. She is alert and oriented to person and time/date as she knows her birthday is tomorrow. Insight, judgment and impulse control are all impaired. Vitals/I&O/Wt Last Vital Signs Temp 98.0 F 04/04/24 14:00 Pulse 76 04/04/24 14:00 Resp 16 04/04/24 14:00 BP 117/73 04/04/24 14:00 Pulse Ox 98 04/04/24 14:00 O2 Del Method Room Air 04/03/24 22:00 Data NPU 04/03/24 15:04 04/03/24 15:04 A&P Assessment and plan (1) Homicidal ideation: (2) Psychosis: (3) Cannabis use disorder: Plan This is a 63-year-old white female with a long history of mental health and addiction issues throughout her life with a preponderance of addiction issues reported per family reports through collateral information. She however presents today floridly psychotic, confused about why she is here, perseverating about getting her closer to being able to get back to her purse without any understanding of where she is or the purpose of this hospitalization. She presented positive for cannabis on the drug screen and we had cannabis Gummies and her belongings. We will need to figure out how to break her psychosis to figure out what element of this is cannabis induced and if there is any element of dementia present. 1. Initiated Invega 6 mg p.o. daily and consider Haldol 5 mg IM or Geodon 20 mg IM for p.o. refusal. Got a list of the medications that she has been on over the past year or so and we will attempt to identify if there is anything else we should restart or might explain her presentation. Initiate thiamine 100 mg p.o. twice daily in case this reflects some kind of Warnicke presentation. 2. Continue every 15 minute checks for safety. 3. Encourage individual, group and milieu therapy. 4. Obtain collateral information. 5. Will quickly change the 96-hour hold to 21-day hold.21-day hold paperwork filed and her hearing will be 03/31/2024 at 2 PM. She was placed on a 21-day hold on 03/31/2024 6. Encourage sober living treatment after discharge at the highest level care to which she is willing to commit. PDMP PDMP Reviewed: Not Reviewed Involuntary Hold Information 2 96 Hour Hold: 96 Hour Involuntary Admission: Yes 96 Hour Hold Ending Date: 04/03/24 96 Hour Hold Ending Time: 12:00 Other Hold: Hold End Date: 04/21/24 Attestations NPU 2 Medical Necessity Statement*: Inpatient hospitalization is medically necessary and the clinically appropriate intervention at this time. We will monitor medications and make changes as indicated. Likely length of stay 10-14 days. Coding Level of Care Code Acute Code for [facility] Fwd Diagnoses Homicidal ideation R45.850 Psychosis F29 Cannabis use disorder F12.90
--- NOTE | 2024-04-04 16:49 | PC.NURSE ---
Patient keeps telling staff that a family member passed and she needs to be released. This nurse talked with patient's son Stone. Patient's son said that his mother is lying, that she keeps calling him to call and talk and lie to the staff so that she can be discharged.
[2024-04-04 19:53] VITALS: BP 129/64; PULSE 103; RESP 18; TEMP 36.7; O2SAT 99
[2024-04-04] MEDS: memantine 5 mg tablet 10 MG PO (21:49)
[2024-04-04] MEDS: trazodone 50 mg Tablet PO (21:49)
[2024-04-04] MEDS: hyDROXYzine 25 mg Capsule 50 MG PO (21:49)
--- NOTE | 2024-04-05 06:39 | PC.NURSE ---
pt ref vs charge; notified resp 18
--- NOTE | 2024-04-05 08:36 | PC.NURSE ---
PT CONTINUES TO COME TO WINDOW AND MAKE STATEMENTS THAT HER SON IS COMING TO PICK HER UP TODAY. PT HAS BEEN INFORMED SHE IS NOT LEAVING TODAY BUT CAN CALL HER SON TO CHAT. DENIES PAIN. DENIES SI/HI AND AVH AT THIS TIME. PT IS IMPULSIVE, INTRUSIVE WITH CONFUSION NOTED AND DISORGANIZED THOUGHT PROCESS. SUPPORT VOICED.
[2024-04-05] MEDS: ziprasidone hcl 20 mg Capsule PO (11:30)
[2024-04-05] MEDS: thiamine 100 mg Tablet PO ×2 (11:30→17:23)
[2024-04-05] MEDS: levothyroxine 125 mcg Tablet PO (11:30)
[2024-04-05] MEDS: paliperidone ER 6 mg Tablet PO (11:30)
[2024-04-05 14:00] VITALS: BP 123/63; PULSE 74; RESP 18; TEMP 36.4; O2SAT 98
--- NOTE | 2024-04-05 15:21 | P.NPUPN_ITS ---
Subjective NPU 2 Subjective: Patient presented today reporting that she wanted to get her belongings in person and go home many times but probably not as perseverative as she had been before. Her psychomotor agitation that has been present has started to decrease per staff reports and direct observation. However there are no changes in the interactions outside of the energy of them. She repetitively asked for bananas even after having them. She did not report any side effects to medication. Mental Status Exam 2 MSE Comments: This is a well-nourished well-developed white female looking somewhat older than her stated age in hospital scrubs with limited grooming and adequate eye contact. No abnormal movements except for psychomotor agitation. Uncooperative with exam in moderate to extreme distress. Speech was normal rate and volume. Mood described as fine I do not belong here I need to go, affect odd and confused. Thought process linear and at times disorganized with continued perseveration and reasking of questions. Thought content: Patient denies suicidal or homicidal ideation, there were no delusions reported or noted, she denied auditory or visual hallucinations. Attention and concentration were impaired and memory was unreliable nd clearly impaired with significant redirection needed on the same subject again and again,but none were formally tested. She is alert and oriented to person and time/date as she knows her birthday is tomorrow. Insight, judgment and impulse control are all impaired. Vitals/I&O/Wt Last Vital Signs Temp 97.6 F 04/05/24 14:00 Pulse 74 04/05/24 14:00 Resp 18 04/05/24 14:00 BP 123/63 04/05/24 14:00 Pulse Ox 98 04/05/24 14:00 O2 Del Method Room Air 04/04/24 19:53 Data NPU 04/03/24 15:04 04/03/24 15:04 A&P Assessment and plan (1) Homicidal ideation: (2) Psychosis: (3) Cannabis use disorder: Plan This is a 63-year-old white female with a long history of mental health and addiction issues throughout her life with a preponderance of addiction issues reported per family reports through collateral information. She however presents today floridly psychotic, confused about why she is here, perseverating about getting her closer to being able to get back to her purse without any understanding of where she is or the purpose of this hospitalization. She presented positive for cannabis on the drug screen and we had cannabis Gummies and her belongings. We will need to figure out how to break her psychosis to figure out what element of this is cannabis induced and if there is any element of dementia present. 1. Initiated Invega 6 mg p.o. daily and consider Haldol 5 mg IM or Geodon 20 mg IM for p.o. refusal. Got a list of the medications that she has been on over the past year or so and we will attempt to identify if there is anything else we should restart or might explain her presentation. Initiate thiamine 100 mg p.o. twice daily in case this reflects some kind of Warnicke presentation. 2. Continue every 15 minute checks for safety. 3. Encourage individual, group and milieu therapy. 4. Obtain collateral information. 5. Will quickly change the 96-hour hold to 21-day hold.21-day hold paperwork filed and her hearing will be 03/31/2024 at 2 PM. She was placed on a 21-day hold on 03/31/2024 6. Encourage sober living treatment after discharge at the highest level care to which she is willing to commit. PDMP PDMP Reviewed: Not Reviewed Involuntary Hold Information 2 96 Hour Hold: 96 Hour Involuntary Admission: Yes 96 Hour Hold Ending Date: 04/03/24 96 Hour Hold Ending Time: 12:00 Other Hold: Hold End Date: 04/21/24 Attestations NPU 2 Medical Necessity Statement*: Inpatient hospitalization is medically necessary and the clinically appropriate intervention at this time. We will monitor medications and make changes as indicated. Likely length of stay 10-14 days. Coding Level of Care Code Acute Code for [facility] Fwd Diagnoses Homicidal ideation R45.850 Psychosis F29 Cannabis use disorder F12.90
[2024-04-05] MEDS: diphenhydrAMINE 50 mg Capsule PO (15:38)
[2024-04-05] MEDS: LORazepam 2 mg Tablet PO (15:38)
[2024-04-05] MEDS: haloperidol 5 mg Tablet PO (15:38)
--- NOTE | 2024-04-05 16:31 | PC.NURSE ---
PT CONTINUES TO COME TO WINDOW AND ASK FOR HER PURSE AND BELONGINGS. PT IS FIXATED ON EATING BANANA'S AND ASKE STAFF CAN I HAVE A BANANA, HURRY GO GET ME A BANANA. PT HAS BEEN INFORMED SHE HAS ALREADY EATEN 3 BANANA'S AND NEEDS TO EAT SOMETHING OTHER THAN BANANA'S. PT WAS GIVEN A GRANOLA BAR TO EAT. PT IS OBSERVED TO BE INTRUSIVE AT THE NURSES STATION MAKING DEMANDS ON THE STAFF AND OFFERING THE NURSES MONEY TO LET ME OUT OF HERE, I WILL GIVE YOU A THOUSAND DOLLARS TO LET ME GO, DR. OLIVER DOESN'T HAVE TO KNOW. PT WAS GIVEN ATIVAN 2 MG, HALDOL 5 MG AND BENADRYL 50MG PO ORDERED FOR INCREASED ANXIETY AND AGITATION AT 1538 WITH NO RELIEF OF SYMPTOMS. PT CONTINUES TO BE IMPULSIVE AND DEMANDING WHILE BEING OVERLY ANXIOUS AND AGITATED THAT SHE CAN NOT LEAVE. CLOSE MONITORING CONTINUES. SUPPORT VOICED.
--- NOTE | 2024-04-05 22:23 | PC.NURSE ---
Patient Refused vs Charge nurse notified Resp 17
--- NOTE | 2024-04-06 06:37 | PC.NURSE ---
pt resting vs not collected per charge resp 16
[2024-04-06] MEDS: ziprasidone hcl 20 mg Capsule PO ×2 (08:31→21:30)
[2024-04-06] MEDS: levothyroxine 125 mcg Tablet PO (08:31)
[2024-04-06] MEDS: hyDROXYzine 25 mg Capsule 50 MG PO (08:31)
[2024-04-06] MEDS: paliperidone ER 6 mg Tablet PO (08:31)
[2024-04-06] MEDS: thiamine 100 mg Tablet PO ×2 (08:31→18:41)
[2024-04-06] MEDS: diphenhydrAMINE 50 mg Capsule PO ×2 (12:58→21:30)
[2024-04-06] MEDS: haloperidol 5 mg Tablet PO (12:58)
[2024-04-06] MEDS: LORazepam 2 mg Tablet PO ×2 (12:58→21:30)
[2024-04-06 14:00] VITALS: BP 120/91; PULSE 88; RESP 18; TEMP 36.3; O2SAT 98
--- NOTE | 2024-04-06 17:51 | W.PM.NPUPNS ---
Subjective NPU Subjective: Patient presents today reporting no changes. She continues to seem to confabulate stories of conversations that were had with her son or or this narrative writer and how that leads to the desired outcome which is that she is being discharged either today or tomorrow. We continue to reassure her that we are working on getting her out of here safely but she seems to have 0 insight into her level of impairment. Mental Status Exam MSE Comments: This is a well-nourished well-developed white female looking somewhat older than her stated age in hospital scrubs with limited grooming and adequate eye contact. No abnormal movements except for psychomotor agitation. Uncooperative with exam in moderate to extreme distress. Speech was normal rate and volume. Mood described as fine I do not belong here I need to go, affect odd and confused. Thought process linear and at times disorganized with continued perseveration and reasking of questions. Thought content: Patient denies suicidal or homicidal ideation, there were no delusions reported or noted, she denied auditory or visual hallucinations. Attention and concentration were impaired and memory was unreliable nd clearly impaired with significant redirection needed on the same subject again and again,but none were formally tested. She is alert and oriented to person and time/date as she knows her birthday is tomorrow. Insight, judgment and impulse control are all impaired. Vitals/I&O/Wt Last Vital Signs Temp 97.4 F L 04/06/24 14:00 Pulse 106 H 04/06/24 20:20 Resp 18 04/06/24 20:20 BP 135/52 04/06/24 20:20 Pulse Ox 95 04/06/24 20:20 O2 Del Method Room Air 04/06/24 20:20 Data NPU 04/03/24 15:04 04/03/24 15:04 A&P Assessment and plan (1) Homicidal ideation: (2) Psychosis: (3) Cannabis use disorder: Plan This is a 63-year-old white female with a long history of mental health and addiction issues throughout her life with a preponderance of addiction issues reported per family reports through collateral information. She however presents today floridly psychotic, confused about why she is here, perseverating about getting her closer to being able to get back to her purse without any understanding of where she is or the purpose of this hospitalization. She presented positive for cannabis on the drug screen and we had cannabis Gummies and her belongings. We will need to figure out how to break her psychosis to figure out what element of this is cannabis induced and if there is any element of dementia present. 1. Initiated Invega 6 mg p.o. daily and consider Haldol 5 mg IM or Geodon 20 mg IM for p.o. refusal. Got a list of the medications that she has been on over the past year or so and we will attempt to identify if there is anything else we should restart or might explain her presentation. Initiate thiamine 100 mg p.o. twice daily in case this reflects some kind of Warnicke presentation. 2. Continue every 15 minute checks for safety. 3. Encourage individual, group and milieu therapy. 4. Obtain collateral information. 5. Will quickly change the 96-hour hold to 21-day hold.21-day hold paperwork filed and her hearing will be 03/31/2024 at 2 PM. She was placed on a 21-day hold on 03/31/2024 6. Encourage sober living treatment after discharge at the highest level care to which she is willing to commit. PDMP PDMP Reviewed: Not Reviewed Involuntary Hold Information 96 Hour Hold: 96 Hour Involuntary Admission: Yes 96 Hour Hold Ending Date: 04/03/24 96 Hour Hold Ending Time: 12:00 Other Hold: Hold End Date: 04/21/24 Attestations NPU Medical Necessity Statement*: Inpatient hospitalization is medically necessary and the clinically appropriate intervention at this time. We will monitor medications and make changes as indicated. Likely length of stay 10-14 days. Coding Level of Care Code Acute Code for [facility] Fwd Diagnoses Homicidal ideation R45.850 Psychosis F29 Cannabis use disorder F12.90
[2024-04-06 20:20] VITALS: BP 135/52; PULSE 106; RESP 18; O2SAT 95
[2024-04-06] MEDS: memantine 5 mg tablet 10 MG PO (21:29)
--- NOTE | 2024-04-07 06:42 | PC.NURSE ---
Patient refused vs charge nurse made aware resp 17
[2024-04-07] MEDS: thiamine 100 mg Tablet PO ×2 (09:07→22:05)
[2024-04-07] MEDS: levothyroxine 125 mcg Tablet PO (09:07)
[2024-04-07] MEDS: paliperidone ER 6 mg Tablet PO (09:07)
[2024-04-07] MEDS: hyDROXYzine 25 mg Capsule 50 MG PO (11:24)
[2024-04-07] MEDS: diphenhydrAMINE 50 mg Capsule PO ×2 (12:47→21:38)
[2024-04-07] MEDS: LORazepam 2 mg Tablet PO ×2 (12:47→21:38)
[2024-04-07] MEDS: haloperidol 5 mg Tablet PO (12:47)
--- NOTE | 2024-04-07 12:59 | PC.NURSE ---
PRN MEDS PT GIVEN 2MG ATIVAN, 5MG HALDOL, AND 50MG BENADRYL FOR ANXIETY & DEPRESSION, WILL CONTINUE TO MONITOR.
--- NOTE | 2024-04-07 13:22 | P.NPUPN_ITS ---
Subjective NPU 2 Subjective: Patient presented today reporting that things are going fine. However she continued to have the perseverative behaviors asking the same questions again again. Today she reported that she needed to leave because her had been hit by car and needed her to come to [place]. This continued her pattern saying extreme things about people dying in hopes that she would get discharged. She denied any side effects to medication. Mental Status Exam 2 MSE Comments: This is a well-nourished well-developed white female looking somewhat older than her stated age in hospital scrubs with limited grooming and adequate eye contact. No abnormal movements except for psychomotor agitation. Uncooperative with exam in mild to moderate distress. Speech was normal rate and volume. Mood described as I am fine, there is nothing wrong with me, affect odd and confused. Thought process linear and at times disorganized with continued perseveration and reasking of questions. Thought content: Patient denies suicidal or homicidal ideation, there were no delusions reported or noted, she denied auditory or visual hallucinations. Attention and concentration were impaired and memory was unreliable nd clearly impaired with significant redirection needed on the same subject again and again,but none were formally tested. She is alert and oriented to person and time/date as she knows her birthday is tomorrow. Insight, judgment and impulse control are all impaired. Vitals/I&O/Wt Last Vital Signs Temp 97.4 F L 04/06/24 14:00 Pulse 106 H 04/06/24 20:20 Resp 18 04/06/24 20:20 BP 135/52 04/06/24 20:20 Pulse Ox 95 04/06/24 20:20 O2 Del Method Room Air 04/06/24 20:20 Data NPU 04/03/24 15:04 04/03/24 15:04 A&P Assessment and plan (1) Homicidal ideation: (2) Psychosis: (3) Cannabis use disorder: Plan This is a 63-year-old white female with a long history of mental health and addiction issues throughout her life with a preponderance of addiction issues reported per family reports through collateral information. She however presents today floridly psychotic, confused about why she is here, perseverating about getting her closer to being able to get back to her purse without any understanding of where she is or the purpose of this hospitalization. She presented positive for cannabis on the drug screen and we had cannabis Gummies and her belongings. We will need to figure out how to break her psychosis to figure out what element of this is cannabis induced and if there is any element of dementia present. 1. Initiated Invega 6 mg p.o. daily and consider Haldol 5 mg IM or Geodon 20 mg IM for p.o. refusal. Got a list of the medications that she has been on over the past year or so and we will attempt to identify if there is anything else we should restart or might explain her presentation. Initiate thiamine 100 mg p.o. twice daily in case this reflects some kind of Warnicke presentation. 2. Continue every 15 minute checks for safety. 3. Encourage individual, group and milieu therapy. 4. Obtain collateral information. 5. Will quickly change the 96-hour hold to 21-day hold.21-day hold paperwork filed and her hearing will be 03/31/2024 at 2 PM. She was placed on a 21-day hold on 03/31/2024 6. Encourage sober living treatment after discharge at the highest level care to which she is willing to commit. PDMP PDMP Reviewed: Not Reviewed Involuntary Hold Information 2 96 Hour Hold: 96 Hour Involuntary Admission: Yes 96 Hour Hold Ending Date: 04/03/24 96 Hour Hold Ending Time: 12:00 Other Hold: Hold End Date: 04/21/24 Attestations NPU 2 Medical Necessity Statement*: Inpatient hospitalization is medically necessary and the clinically appropriate intervention at this time. We will monitor medications and make changes as indicated. Likely length of stay 10-14 days. Coding Level of Care Code Acute Code for [facility] Fwd Diagnoses Homicidal ideation R45.850 Psychosis F29 Cannabis use disorder F12.90
[2024-04-07 14:00] VITALS: BP 136/70; PULSE 82; RESP 18; TEMP 36.9; O2SAT 98
[2024-04-07] MEDS: memantine 5 mg tablet 10 MG PO (21:38)
[2024-04-07] MEDS: ziprasidone hcl 20 mg Capsule PO (21:38)
[2024-04-07 22:00] VITALS: BP 132/68; PULSE 86; RESP 18; TEMP 36.5; O2SAT 96
--- NOTE | 2024-04-08 07:38 | P.NPUPN_ITS ---
Subjective NPU 2 Subjective: Patient presented today reporting that things are going okay. She continued her perseverative behavior and continues to bring up different reports of family being in dire circumstances of either dying or being in the hospital in an attempt to get herself discharged from the hospital. She did not report any side effects to her medication and identified that Dr. Navarro would be here tomorrow to begin the process of giving her additional eyes and evaluation of her situation. Mental Status Exam 2 MSE Comments: This is a well-nourished well-developed white female looking somewhat older than her stated age in hospital scrubs with limited grooming and adequate eye contact. No abnormal movements except for psychomotor agitation. Uncooperative with exam in mild to moderate distress. Speech was normal rate and volume. Mood described as I am fine, there is nothing wrong with me, affect odd and confused. Thought process linear and at times disorganized with continued perseveration and reasking of questions. Thought content: Patient denies suicidal or homicidal ideation, there were no delusions reported or noted, she denied auditory or visual hallucinations. Attention and concentration were impaired and memory was unreliable nd clearly impaired with significant redirection needed on the same subject again and again,but none were formally tested. She is alert and oriented to person and time/date as she knows her birthday is tomorrow. Insight, judgment and impulse control are all impaired. Vitals/I&O/Wt Last Vital Signs Temp 97.7 F 04/07/24 22:00 Pulse 86 04/07/24 22:00 Resp 18 04/07/24 22:00 BP 132/68 04/07/24 22:00 Pulse Ox 96 04/07/24 22:00 O2 Del Method Room Air 04/06/24 20:20 Data NPU 04/03/24 15:04 04/03/24 15:04 A&P Assessment and plan (1) Homicidal ideation: (2) Psychosis: (3) Cannabis use disorder: Plan This is a 63-year-old white female with a long history of mental health and addiction issues throughout her life with a preponderance of addiction issues reported per family reports through collateral information. She however presents today floridly psychotic, confused about why she is here, perseverating about getting her closer to being able to get back to her purse without any understanding of where she is or the purpose of this hospitalization. She presented positive for cannabis on the drug screen and we had cannabis Gummies and her belongings. We will need to figure out how to break her psychosis to figure out what element of this is cannabis induced and if there is any element of dementia present. 1. Initiated Invega 6 mg p.o. daily and consider Haldol 5 mg IM or Geodon 20 mg IM for p.o. refusal. Got a list of the medications that she has been on over the past year or so and we will attempt to identify if there is anything else we should restart or might explain her presentation. Initiate thiamine 100 mg p.o. twice daily in case this reflects some kind of Warnicke presentation. 2. Continue every 15 minute checks for safety. 3. Encourage individual, group and milieu therapy. 4. Obtain collateral information. 5. Will quickly change the 96-hour hold to 21-day hold.21-day hold paperwork filed and her hearing will be 03/31/2024 at 2 PM. She was placed on a 21-day hold on 03/31/2024 6. Encourage sober living treatment after discharge at the highest level care to which she is willing to commit. PDMP PDMP Reviewed: Not Reviewed Involuntary Hold Information 2 96 Hour Hold: 96 Hour Involuntary Admission: Yes 96 Hour Hold Ending Date: 04/03/24 96 Hour Hold Ending Time: 12:00 Other Hold: Hold End Date: 04/21/24 Attestations NPU 2 Medical Necessity Statement*: Inpatient hospitalization is medically necessary and the clinically appropriate intervention at this time. We will monitor medications and make changes as indicated. Likely length of stay 10-14 days. Coding Level of Care Code Acute Code for [facility] Fwd Diagnoses Homicidal ideation R45.850 Psychosis F29 Cannabis use disorder F12.90
[2024-04-08] MEDS: ziprasidone hcl 20 mg Capsule PO (09:10)
[2024-04-08] MEDS: levothyroxine 125 mcg Tablet PO (09:10)
[2024-04-08] MEDS: paliperidone ER 6 mg Tablet PO (09:10)
[2024-04-08] MEDS: thiamine 100 mg Tablet PO ×2 (09:10→21:59)
[2024-04-08] MEDS: LORazepam 2 mg Tablet PO ×2 (10:29→21:52)
[2024-04-08] MEDS: haloperidol 5 mg Tablet PO ×2 (10:29→21:52)
[2024-04-08] MEDS: diphenhydrAMINE 50 mg Capsule PO ×2 (10:29→21:53)
--- NOTE | 2024-04-08 11:08 | PC.NURSE ---
Verbal from Dr. Hatch for seclusion. Patient placed into seclusion at 1102. Patient banging on the door to the nurses station. Patient is agitating fellow patients with her insistent questions and intrusive behaviros. Sitter is resent. Continuous monitoring of patient.
--- NOTE | 2024-04-08 11:30 | PC.NURSE ---
patient removed from seclusion at 1128. Patient is not in any distress. Patient continues to be fixated on getting her belongings. Patient is telling staff that her in [place] is in the hospital and that she needs to be discharged. Patient offered drink and snacks and toileting. VS to be obtained.
[2024-04-08 14:00] VITALS: BP 130/75; PULSE 105; RESP 17; TEMP 36.7; O2SAT 96
[2024-04-08] MEDS: OLANZapine 5 mg ODT PO (17:52)
[2024-04-08 18:19] LABS: Vitamin B1 (Thiamine),Blood 161 nmol/L (78-185)
[2024-04-08 21:47] VITALS: RESP 18
--- NOTE | 2024-04-08 21:47 | PC.NURSE ---
Patient refused vitals. Nurse notified.
[2024-04-08] MEDS: trazodone 50 mg Tablet PO (21:52)
[2024-04-08] MEDS: memantine 5 mg tablet 10 MG PO (21:52)
[2024-04-09 05:50] VITALS: BMI 23.6
[2024-04-09 06:00] VITALS: RESP 18
--- NOTE | 2024-04-09 06:49 | PC.NURSE ---
Patient refused vitals.Charge nurse notified.
[2024-04-09] MEDS: OLANZapine 5 mg ODT PO (09:58)
[2024-04-09] MEDS: paliperidone ER 6 mg Tablet PO (09:58)
[2024-04-09] MEDS: levothyroxine 125 mcg Tablet PO (09:58)
[2024-04-09] MEDS: thiamine 100 mg Tablet PO ×2 (10:00→20:29)
[2024-04-09 14:00] VITALS: BP 126/72; PULSE 92; RESP 17; TEMP 36.6; O2SAT 95
--- NOTE | 2024-04-09 14:54 | PC.NURSE ---
pt at nurses station stating she was going to kill herself because they will not let her go home. pt continues to request her box and purse multiple times during the day. pt states she has had a in the family, then states when her son gets here to visit her she wants her box and purse so they can go out to eat an then come back here after a couple of days. pt does not state any plan to do so.
--- NOTE | 2024-04-09 18:05 | P.NPUPN_ITS ---
Subjective NPU 2 Subjective: 64-year-old female with a history of dem entia and psychosis. Patient continued report confusion. She had continued to request that she be allowed to leave here and perseverated about wanting the radio news writer of this note to allow her access to her purse. She had stated that she was uncertain where she was currently but stated that she was previously living in a a town known as [place], [place]. She had continued report that she needed to leave the hospital right away but was unable to describe the particular events that required her to leave here today.The patient had reported that she had previously met the radio news writer of this note despite never having a conversation with her in the past. Mental Status Exam 2 MSE Comments: This is a well-nourished well-developed white female looking somewhat older than her stated age in hospital scrubs with limited grooming and adequate eye contact. No abnormal movements except for psychomotor agitation. Uncooperative with exam in mild to moderate distress. Speech was normal rate and volume. Mood described as fine. Affect: odd and subdued. Thought process: nonlinear and perseverative. Thought content: Patient denies suicidal or homicidal ideation, there were no delusions reported or noted, she denied auditory or visual hallucinations. Attention and concentration were impaired and memory was unreliable. She is alert and oriented to person and time/date as she knows her birthday is tomorrow. Insight, judgment and impulse control are all impaired. Vitals/I&O/Wt Last Vital Signs Temp 97.8 F 04/09/24 14:00 Pulse 92 04/09/24 14:00 Resp 17 04/09/24 14:00 BP 126/72 04/09/24 14:00 Pulse Ox 95 04/09/24 14:00 O2 Del Method Room Air 04/06/24 20:20 Weight last 48 hrs Weight 56.756 kg Data NPU 04/03/24 15:04 04/03/24 15:04 A&P Assessment and plan (1) Psychosis: (2) Homicidal ideation: (3) Cannabis use disorder: (4) Dementia: Qualifiers: Dementia behavioral or psychological symptom: with mood disturbance D ementia severity: unspecified severity Dementia type: unspecified type Q ualified Code(s): F03.93 - Unspecified dementia, unspecified severity, with mood disturbance Plan This is a 63-year-old white female with a long history of mental health and addiction issues throughout her life with a preponderance of addiction issues reported per family reports through collateral information. She however presents today floridly psychotic, confused about why she is here, perseverating about getting her closer to being able to get back to her purse without any understanding of where she is or the purpose of this hospitalization. She presented positive for cannabis on the drug screen and we had cannabis Gummies and her belongings. We will need to figure out how to break her psychosis to figure out what element of this is cannabis induced and if there is any element of dementia present. 1. Initiated Invega 6 mg p.o. daily and consider Haldol 5 mg IM or Geodon 20 mg IM for p.o. refusal. Got a list of the medications that she has been on over the past year or so and we will attempt to identify if there is anything else we should restart or might explain her presentation. Initiate thiamine 100 mg p.o. twice daily in case this reflects some kind of Warnicke presentation. 2. Continue every 15 minute checks for safety. 3. Encourage individual, group and milieu therapy. 4. Obtain collateral information. 5. Will quickly change the 96-hour hold to 21-day hold.21-day hold paperwork filed and her hearing will be 03/31/2024 at 2 PM. She was placed on a 21-day hold on 03/31/2024 6. Encourage sober living treatment after discharge at the highest level care to which she is willing to commit. PDMP PDMP Reviewed: Not Reviewed Involuntary Hold Information 2 96 Hour Hold: 96 Hour Involuntary Admission: Yes 96 Hour Hold Ending Date: 04/03/24 96 Hour Hold Ending Time: 12:00 Other Hold: Hold End Date: 04/21/24 Attestations NPU 2 Medical Necessity Statement*: Inpatient hospitalization is medically necessary and the clinically appropriate intervention at this time. We will monitor medications and make changes as indicated. Likely length of stay 10-14 days. Coding Level of Care Code Acute Code for g Fwd Diagnoses Psychosis F29 Homicidal ideation R45.850 Cannabis use disorder F12.90 Dementia F03.93 Dementia behavioral or psychological symptom: with mood disturbance Dementia severity: unspecified severity Dementia type: unspecified type
--- NOTE | 2024-04-09 18:42 | PC.NURSE ---
pt up at nurses station stating she has been here since or january. and that she is leaving tomorrow.
[2024-04-09 20:05] VITALS: RESP 18
--- NOTE | 2024-04-09 20:05 | PC.NURSE ---
Patient refused.charge nurse notified.
[2024-04-09] MEDS: memantine 5 mg tablet 10 MG PO (20:29)
[2024-04-09] MEDS: trazodone 50 mg Tablet PO (20:29)
[2024-04-09] MEDS: hyDROXYzine 25 mg Capsule 50 MG PO (20:29)
[2024-04-10 06:00] VITALS: RESP 18
[2024-04-10] MEDS: levothyroxine 125 mcg Tablet PO (08:33)
[2024-04-10] MEDS: thiamine 100 mg Tablet PO ×2 (08:33→20:15)
[2024-04-10] MEDS: ziprasidone hcl 20 mg Capsule PO ×2 (08:33→16:48)
[2024-04-10] MEDS: paliperidone ER 6 mg Tablet PO (08:33)
--- NOTE | 2024-04-10 12:01 | PC.NURSE ---
ORDERS RECEIVED FROM DR. RODRIGUEZ TO HAVE OT COME AND COMPLETE RICCI TESTING. ORDERS PLACED. ATTEMPTED TO EDUCATE PT WITH NO SUCCESS. SUPPORT VOICED.
[2024-04-10] MEDS: OLANZapine 5 mg ODT PO ×2 (12:42→20:15)
[2024-04-10 14:00] VITALS: BP 105/54; PULSE 77; RESP 16; TEMP 36.8; O2SAT 96
--- NOTE | 2024-04-10 16:24 | P.NPUPN_ITS ---
Subjective NPU 2 Subjective: 64-year-old female with a history of dem entia and psychosis. The patient continued to appear confused with significant problems with memory loss. She had continued to perseverate about wanting to leave here and requested that she be allowed to take her purse out from the box and make the necessary calls.Patient was able to eat. She reported difficulties with managing her affairs at home. Mental Status Exam 2 MSE Comments: This is a well-nourished well-developed white female looking somewhat older than her stated age in hospital scrubs with limited grooming and adequate eye contact. No abnormal movements except for psychomotor agitation. Uncooperative with exam in mild to moderate distress. Speech was normal rate and volume. Mood described as fine. Affect: odd and subdued. Thought process: nonlinear and perseverative. Thought content: Patient denies suicidal or homicidal ideation, there were no delusions reported or noted, she denied auditory or visual hallucinations. Attention and concentration were impaired and memory was unreliable. She is alert and oriented to person but not date, day of week, month or year. She thought the name of this place was [facility]. Insight, judgment and impulse control are all impaired. Vitals/I&O/Wt Last Vital Signs Temp 98.2 F 04/10/24 14:00 Pulse 77 04/10/24 14:00 Resp 16 04/10/24 14:00 BP 105/54 04/10/24 14:00 Pulse Ox 96 04/10/24 14:00 O2 Del Method Room Air 04/06/24 20:20 Weight last 48 hrs Weight 56.756 kg Data NPU 04/03/24 15:04 04/03/24 15:04 A&P Assessment and plan (1) Psychosis: (2) Homicidal ideation: (3) Cannabis use disorder: (4) Dementia: Qualifiers: Dementia behavioral or psychological symptom: with mood disturbance D ementia severity: unspecified severity Dementia type: unspecified type Q ualified Code(s): F03.93 - Unspecified dementia, unspecified severity, with mood disturbance Plan This is a 63-year-old white female with a long history of mental health and addiction issues throughout her life with a preponderance of addiction issues reported per family reports through collateral information. She however presents today floridly psychotic, confused about why she is here, perseverating about getting her closer to being able to get back to her purse without any understanding of where she is or the purpose of this hospitalization. She presented positive for cannabis on the drug screen and we had cannabis Gummies and her belongings. We will need to figure out how to break her psychosis to figure out what element of this is cannabis induced and if there is any element of dementia present. 1. Continue Invega 6 mg p.o. daily and consider Haldol 5 mg IM or Geodon 20 mg IM for p.o. refusal. Got a list of the medications that she has been on over the past year or so and we will attempt to identify if there is anything else we should restart or might explain her presentation. Initiate thiamine 100 mg p.o. twice daily in case this reflects some kind of Warnicke presentation. 2. Continue every 15 minute checks for safety. 3. Encourage individual, group and milieu therapy. 4. Obtain collateral information. 5. Will quickly change the 96-hour hold to 21-day hold.21-day hold paperwork filed and her hearing will be 03/31/2024 at 2 PM. She was placed on a 21-day hold on 03/31/2024 6. Encourage sober living treatment after discharge at the highest level care to which she is willing to commit. PDMP PDMP Reviewed: Not Reviewed Involuntary Hold Information 2 96 Hour Hold: 96 Hour Involuntary Admission: Yes 96 Hour Hold Ending Date: 04/03/24 96 Hour Hold Ending Time: 12:00 Other Hold: Hold End Date: 04/21/24 Attestations NPU 2 Medical Necessity Statement*: Inpatient hospitalization is medically necessary and the clinically appropriate intervention at this time. We will monitor medications and make changes as indicated. Likely length of stay 10-14 days. Coding Level of Care Code Acute Code for Chg Fwd Diagnoses Psychosis F29 Homicidal ideation R45.850 Cannabis use disorder F12.90 Dementia F03.93 Dementia behavioral or psychological symptom: with mood disturbance Dementia severity: unspecified severity Dementia type: unspecified type
--- NOTE | 2024-04-10 16:34 | PC.OT ---
OT RICCI EVALUATION ATTEMPTED. PATIENT REFUSED TO PARTICIPATE DESPITE BEING TOLD THAT IT WOULD HELP WITH HER DISCHARGE PLANS. WILL ATTEMPT AGAIN TOMORROW. NURSING INFORMED
[2024-04-10] MEDS: hyDROXYzine 25 mg Capsule 50 MG PO (16:48)
--- NOTE | 2024-04-10 16:50 | PC.NURSE ---
PT CONTINUES TO COME TO THE DESK CONFUSED,IMPULSIVE AND INTRUSIVE. MAKES STATEMENTS THAT I FEEL SO BAD I WANT TO GET A GUN AND SHOOT MYSELF. PT IS OBSERVED WITH ANXIETY AND AGITATION DUE TO NOT BEING ABLE TO LEAVE THIS PLACE. PT REPEATEDLY CALLS HER SON AND ASK STAFF IF SHE CAN LEAVE. PT WILL COME TO THE NURSES STATION EVERY 3-4 MINUTES AND ASKS THE SAME QUESTIONS. ASKS FOR BANANA'S AND PEANUT BUTTER SANDWICHES. STAFF ATTEMPT TO REDIRECT PT WITH LITTLE RESOLVE. PT WAS GIVEN GEODON 20 MG AND VISTARIL 50 G GIVEN ORDERED FOR INCREASED ANXIETY AND AGITATION. SUPPORT VOICED.
[2024-04-10] MEDS: memantine 5 mg tablet 10 MG PO (20:14)
[2024-04-10] MEDS: trazodone 50 mg Tablet PO (20:15)
--- NOTE | 2024-04-10 22:08 | PC.NURSE ---
Patient refused vs resp 18
--- NOTE | 2024-04-11 06:44 | PC.NURSE ---
pt resting vs not collected charge notified resp 18
[2024-04-11] MEDS: levothyroxine 125 mcg Tablet PO (08:53)
[2024-04-11] MEDS: paliperidone ER 6 mg Tablet PO (08:53)
[2024-04-11] MEDS: ziprasidone hcl 20 mg Capsule PO ×2 (08:53→16:56)
[2024-04-11] MEDS: thiamine 100 mg Tablet PO ×2 (08:53→20:20)
[2024-04-11] MEDS: ondansetron 4 MG Tablet PO (12:19)
[2024-04-11 14:00] VITALS: BP 118/69; PULSE 86; RESP 18; TEMP 36.6; O2SAT 96
[2024-04-11] MEDS: hyDROXYzine 25 mg Capsule 50 MG PO (16:13)
--- NOTE | 2024-04-11 17:05 | P.NPUPN_ITS ---
Subjective NPU 2 Subjective: 64-year-old female with a history of dem entia and psychosis. The patient had remained compliant on the unit. She had repeatedly asked similar questions as to whether the designer/writer was a doctor. The patient had reported that she had something in her box and needed to get access to her purse. Patient had stated that she was planning on living at home with her family on the same property but reported that she was not sure what city that she lived in at this time. She had continued to appear confused on the unit. She had engaged in oral intake. She had struggled at times with problems with boundaries that she had wandered into other peoples rooms at times. She was redirectable and did not appear aggressive. She had remained compliant with her medication regimen. Patient had continued to report that she could manage her affairs at home. The [place] evaluation of living skills was conducted yesterday by Occupational Therapy and the patient did not appear to have any idea about having completed this evaluation yesterday. Mental Status Exam 2 MSE Comments: This is a well-nourished well-developed white female looking somewhat older than her stated age in hospital scrubs with limited grooming and adequate eye contact. No abnormal movements except for psychomotor agitation. She was cooperative with exam in mild to moderate distress. Speech was normal in rate and volume. Mood described as fine. Affect: odd and subdued. Thought process: nonlinear and perseverative. Thought content: Patient denies suicidal or homicidal ideation, there were no delusions reported or noted, she denied auditory or visual hallucinations. She did not appear to be responding to internal stimuli. Attention was variable. Recent and remote memory on testing in 0/3, 0/3 at 5 minutes, Not alert to place, date, time or situation. She is alert to person. Insight, judgment and impulse control are all impaired. Vitals/I&O/Wt Last Vital Signs Temp 98 F 04/11/24 14:00 Pulse 86 04/11/24 14:00 Resp 18 04/11/24 14:00 BP 118/69 04/11/24 14:00 Pulse Ox 96 04/11/24 14:00 O2 Del Method Room Air 04/06/24 20:20 Data NPU 04/03/24 15:04 04/03/24 15:04 A&P Assessment and plan (1) Dementia: Qualifiers: Dementia behavioral or psychological symptom: with mood disturbance D ementia severity: unspecified severity Dementia type: unspecified type Q ualified Code(s): F03.93 - Unspecified dementia, unspecified severity, with mood disturbance (2) Psychosis: (3) Homicidal ideation: (4) Cannabis use disorder: Plan This is a 63-year-old white female with a long history of mental health and addiction issues throughout her life with a preponderance of addiction issues reported per family reports through collateral information. She however presents today floridly psychotic, confused about why she is here, perseverating about getting her closer to being able to get back to her purse without any understanding of where she is or the purpose of this hospitalization. She presented positive for cannabis on the drug screen and we had cannabis Gummies and her belongings. We will need to figure out how to break her psychosis to figure out what element of this is cannabis induced and if there is any element of dementia present. 1. Continue Invega 6 mg p.o. daily and Memantine as prescribed. Initiate thiamine 100 mg p.o. twice daily in case this reflects some kind of Warnicke presentation. 2. Continue every 15 minute checks for safety. 3. Encourage individual, group and milieu therapy. 4. Obtain collateral information. 5. Will quickly change the 96-hour hold to 21-day hold.21-day hold paperwork filed and her hearing will be 03/31/2024 at 2 PM. She was placed on a 21-day hold on 03/31/2024 6. Encourage sober living treatment after discharge at the highest level care to which she is willing to commit. PDMP PDMP Reviewed: Not Reviewed Involuntary Hold Information 2 96 Hour Hold: 96 Hour Involuntary Admission: Yes 96 Hour Hold Ending Date: 04/03/24 96 Hour Hold Ending Time: 12:00 Other Hold: Hold End Date: 04/21/24 Attestations NPU 2 Medical Necessity Statement*: Inpatient hospitalization is medically necessary and the clinically appropriate intervention at this time. We will monitor medications and make changes as indicated. Likely length of stay 10-14 days. Coding Level of Care Code Acute Code for [facility] Fwd Diagnoses Dementia F03.93 Dementia behavioral or psychological symptom: with mood disturbance Dementia severity: unspecified severity Dementia type: unspecified type Psychosis F29 Homicidal ideation R45.850 Cannabis use disorder F12.90
[2024-04-11 20:20] VITALS: BP 148/69; PULSE 80; RESP 18; TEMP 36.6; O2SAT 97
[2024-04-11] MEDS: memantine 5 mg tablet 10 MG PO (20:20)
[2024-04-11] MEDS: trazodone 50 mg Tablet PO (20:20)
[2024-04-11] MEDS: haloperidol 5 mg Tablet PO (20:20)
[2024-04-12] MEDS: OLANZapine 5 mg ODT PO (02:21)
--- NOTE | 2024-04-12 06:29 | PC.NURSE ---
vs not collected per charge resp 18
[2024-04-12] MEDS: thiamine 100 mg Tablet PO ×2 (11:06→20:00)
[2024-04-12] MEDS: paliperidone ER 6 mg Tablet PO (11:06)
[2024-04-12] MEDS: levothyroxine 125 mcg Tablet PO (11:07)
[2024-04-12 14:00] VITALS: BP 151/73; PULSE 74; RESP 16; TEMP 36.9; O2SAT 95
--- NOTE | 2024-04-12 14:28 | P.NPUPN_ITS ---
Subjective NPU 2 Subjective: 64-year-old female with a history of dem entia and psychosis. The patient did not appear aggressive at this time. She had appeared excessively tired earlier in the morning. She continued to appear very confused again asking if the contract technical writer of this note was the doctor despite being told several times over the past week that this contract technical writer was indeed the doctor. The patient continued to require some redirection as she appeared intrusive often entering into other patients personal space. She was redirectable. She had reported that she simply needed to go home but continued to appear confused as to where her home was at this time. Mental Status Exam 2 MSE Comments: This is a well-nourished well-developed white female looking somewhat older than her stated age in hospital scrubs with limited grooming and adequate eye contact. No abnormal movements except for psychomotor agitation. She was cooperative with exam in mild to moderate distress. Speech was normal in rate and volume. Mood described as fine. Affect: odd and subdued. Thought process: nonlinear and perseverative. Thought content: Patient denies suicidal or homicidal ideation, there were no delusions reported or noted, she denied auditory or visual hallucinations. She did not appear to be responding to internal stimuli. Attention was variable. Recent and remote memory on testing in 0/3, 0/3 at 5 minutes, Not alert to place, date, time or situation. She is alert to person. Insight, judgment and impulse control are all impaired. Vitals/I&O/Wt Last Vital Signs Temp 97.8 F 04/11/24 20:20 Pulse 80 04/11/24 20:20 Resp 18 04/11/24 20:20 BP 148/69 04/11/24 20:20 Pulse Ox 97 04/11/24 20:20 O2 Del Method Room Air 04/11/24 20:20 Data NPU 04/03/24 15:04 04/03/24 15:04 A&P Assessment and plan (1) Dementia: Qualifiers: Dementia behavioral or psychological symptom: with mood disturbance D ementia severity: unspecified severity Dementia type: unspecified type Q ualified Code(s): F03.93 - Unspecified dementia, unspecified severity, with mood disturbance (2) Psychosis: (3) Homicidal ideation: (4) Cannabis use disorder: Plan This is a 63-year-old white female with a long history of mental health and addiction issues throughout her life with a preponderance of addiction issues reported per family reports through collateral information. She however presents today floridly psychotic, confused about why she is here, perseverating about getting her closer to being able to get back to her purse without any understanding of where she is or the purpose of this hospitalization. She presented positive for cannabis on the drug screen and we had cannabis Gummies and her belongings. We will need to figure out how to break her psychosis to figure out what element of this is cannabis induced and if there is any element of dementia present. 1. Reduce invega to 3mg secondary to excess sedation and Memantine as prescribed. Initiate thiamine 100 mg p.o. twice daily in case this reflects some kind of Warnicke presentation. 2. Continue every 15 minute checks for safety. 3. Encourage individual, group and milieu therapy. 4. Obtain collateral information. 5. Will quickly change the 96-hour hold to 21-day hold.21-day hold paperwork filed and her hearing will be 03/31/2024 at 2 PM. She was placed on a 21-day hold on 03/31/2024 6. Encourage sober living treatment after discharge at the highest level care to which she is willing to commit. 7. Patient will require 24 hour supervision per [facility] testing. PDMP PDMP Reviewed: Not Reviewed Involuntary Hold Information 2 96 Hour Hold: 96 Hour Involuntary Admission: Yes 96 Hour Hold Ending Date: 04/03/24 96 Hour Hold Ending Time: 12:00 Other Hold: Hold End Date: 04/21/24 Attestations NPU 2 Medical Necessity Statement*: Inpatient hospitalization is medically necessary and the clinically appropriate intervention at this time. We will monitor medications and make changes as indicated. Likely length of stay 10-14 days. Coding Level of Care Code Acute Code for g Fwd Diagnoses Dementia F03.93 Dementia behavioral or psychological symptom: with mood disturbance Dementia severity: unspecified severity Dementia type: unspecified type Psychosis F29 Homicidal ideation R45.850 Cannabis use disorder F12.90
--- NOTE | 2024-04-12 16:40 | PC.NURSE ---
About 1545 patient came to the nurses station stating that girl down there gave me a pill and i took it. Asked her why and she stated, i just did, and i want to talk to you about a sleep aid. Asked the patient again if she really took someone else's medication and she said yes. This funeral limousine driver got up to go talk to the other patient and Osiris states loudly don't go ask her I told her I wouldn't tell you she gave it to me . Upon further investigation and review; it is believed this patient took a Vistaril that was previously given to another patient. Educated the patient of the dangers of taking medications that are not prescribed to her; patient shrugs her shoulders and walks away.
[2024-04-12] MEDS: trazodone 50 mg Tablet PO (20:00)
[2024-04-12] MEDS: ziprasidone hcl 20 mg Capsule PO (20:00)
[2024-04-12] MEDS: memantine 5 mg tablet 10 MG PO (20:00)
[2024-04-12 20:27] VITALS: BP 163/77; PULSE 71; RESP 18; TEMP 36.7; O2SAT 97
--- NOTE | 2024-04-12 20:55 | PC.NURSE ---
PT REMAINS CONFUSED WITH DISORGANIZED THOUGHT PROCESS. INTRUSIVE AND IMPULSIVE AT THE NURSES STATION REPEATEDLY ASKING FOR MORE MEDICINE AND A SLEEP AIDE. PT HAS BEEN GIVEN GEODON 20 MG ORDERED FOR AGITATION. TRAZODONE 50 MG GIVEN FOR INSOMNIA. DENIES PAIN. DENIES SI/HI AND AVH AT THIS TIME. SUPPORT VOICED.
[2024-04-12] MEDS: hyDROXYzine 25 mg Capsule 50 MG PO (21:38)
[2024-04-12] MEDS: haloperidol 5 mg Tablet PO (21:38)
[2024-04-13 06:00] VITALS: BP 128/65; PULSE 70; RESP 16; TEMP 36.6; O2SAT 98
[2024-04-13] MEDS: levothyroxine 125 mcg Tablet PO (08:40)
[2024-04-13] MEDS: paliperidone ER 3 mg Tablet PO (08:40)
[2024-04-13] MEDS: thiamine 100 mg Tablet PO ×2 (08:41→20:18)
[2024-04-13 14:00] VITALS: BP 151/65; PULSE 72; RESP 16; TEMP 36.7; O2SAT 97
--- NOTE | 2024-04-13 16:33 | P.NPUPN_ITS ---
Subjective NPU 2 Subjective: 64-year-old female with a history of dem entia and psychosis. Patient continued to appear confused repeatedly asking during the day at several different times whether the job specification writer of the note was a doctor. She had also asked this question to several different peers. She had continued to struggle with poor boundaries often entering into the room of others and requiring redirection. She had just reported that everything was fine and that she was planning on calling her son to come pick her up today. She she continued to report that her plan was to take care of herself at home. Mental Status Exam 2 MSE Comments: This is a well-nourished well-developed white female looking somewhat older than her stated age in hospital scrubs with limited grooming and adequate eye contact. No abnormal movements except for psychomotor agitation. She was cooperative with exam in mild to moderate distress. Speech was normal in rate and volume. Mood described as fine. Affect: odd and subdued. Thought process: nonlinear and perseverative. Thought content: Patient denies suicidal or homicidal ideation, there were no delusions reported or noted, she denied auditory or visual hallucinations. Impoverished content as well. She did not appear to be responding to internal stimuli. Attention was variable. Recent and remote memory on testing in 0/3, 0/3 at 5 minutes, Not alert to place, date, time or situation. She is alert to person. Insight, judgment and impulse control are all impaired. Vitals/I&O/Wt Last Vital Signs Temp 98.1 F 04/13/24 14:00 Pulse 72 04/13/24 14:00 Resp 16 04/13/24 14:00 BP 151/65 04/13/24 14:00 Pulse Ox 97 04/13/24 14:00 O2 Del Method Room Air 04/13/24 06:00 Data NPU 04/03/24 15:04 04/03/24 15:04 A&P Assessment and plan (1) Dementia: Qualifiers: Dementia behavioral or psychological symptom: with mood disturbance D ementia severity: unspecified severity Dementia type: unspecified type Q ualified Code(s): F03.93 - Unspecified dementia, unspecified severity, with mood disturbance (2) Psychosis: (3) Homicidal ideation: (4) Cannabis use disorder: Plan This is a 63-year-old white female with a long history of mental health and addiction issues throughout her life with a preponderance of addiction issues reported per family reports through collateral information. She however presents today floridly psychotic, confused about why she is here, perseverating about getting her closer to being able to get back to her purse without any understanding of where she is or the purpose of this hospitalization. She presented positive for cannabis on the drug screen and we had cannabis Gummies and her belongings. We will need to figure out how to break her psychosis to figure out what element of this is cannabis induced and if there is any element of dementia present. 1. Invega 3mg daily and Memantine as prescribed. Initiate thiamine 100 mg p.o. twice daily in case this reflects some kind of Warnicke presentation. Check b12, folate, Vitamin D. 2. Continue every 15 minute checks for safety. 3. Encourage individual, group and milieu therapy. 4. Obtain collateral information. 5. Will quickly change the 96-hour hold to 21-day hold.21-day hold paperwork filed and her hearing will be 03/31/2024 at 2 PM. She was placed on a 21-day hold on 03/31/2024 6. Encourage sober living treatment after discharge at the highest level care to which she is willing to commit. 7. Patient will require 24 hour supervision per [facility] testing. LEVEL 2 to be completed. PDMP PDMP Reviewed: Not Reviewed Involuntary Hold Information 2 96 Hour Hold: 96 Hour Involuntary Admission: Yes 96 Hour Hold Ending Date: 04/03/24 96 Hour Hold Ending Time: 12:00 Other Hold: Hold End Date: 04/21/24 Attestations NPU 2 Medical Necessity Statement*: Inpatient hospitalization is medically necessary and the clinically appropriate intervention at this time. We will monitor medications and make changes as indicated. Likely length of stay 10-14 days. Coding Level of Care Code Acute Code for [facility] Diagnoses Dementia F03.93 Dementia behavioral or psychological symptom: with mood disturbance Dementia severity: unspecified severity Dementia type: unspecified type Psychosis F29 Homicidal ideation R45.850 Cannabis use disorder F12.90
[2024-04-13 19:03] LABS: 25 Hydroxy Vitamin D 30 ng/mL (30-100); Folate Level 16.8 ng/mL (4.8-37.3); Vitamin B12 364 pg/mL (232-1245)
[2024-04-13] MEDS: memantine 5 mg tablet 10 MG PO (20:18)
[2024-04-13] MEDS: trazodone 50 mg Tablet PO (20:18)
[2024-04-13] MEDS: ziprasidone hcl 20 mg Capsule PO (20:18)
[2024-04-13] MEDS: hyDROXYzine 25 mg Capsule 50 MG PO (20:18)
[2024-04-13 21:29] VITALS: BP 160/67; PULSE 72; RESP 17; TEMP 36.7; O2SAT 97
--- NOTE | 2024-04-13 21:35 | PC.NURSE ---
REMAINS AT THE NURSES STATION CONSTANTLY DEMANDING I GET MY SLEEPAID NOW, I NEED MY MEDS. PT WAS EDUCATED THAT THE NIGHT NURSE WILL GIVE MEDICATIONS FROM 800-1000 PM. PT IS OBSERVED CONSTANTLY INTERUPTING PATIENTS WHEN SPEAKING TO STAFF AND TRYING TO CUT IN LINE FOR MEDICATIONS EVEN THOU SHE HAS BEEN INFORMED SEVERAL TIMES IT WAS NOT TIME FOR MEDICATIONS. PT HAS BEEN VERBALLY REDIRECTED MANY TIMES BY ALL STAFF WITH LITTLE EFFECT. PT WAS GIVEN GEODON 20 MG ORDERED FOR AGITATION, TRAZODONE 50 MG FOR SLEEP. AND VISTARIL 50 MG FOR ANXIETY. PT LAID DOWN FOR FIVE MINUTES THEN CAME TO THE NURSES STATION AGAIN STATING NONE OF THAT WORKED I NEED MORE SLEEP MEDICINE. PT WAS AGIAN EDUCATED THAT SHE IS UNABLE TO HAVE ANYTHING ELSE FOR SLEEP FOR AT LEAST AN HOUR AND IT TAKES TIME FOR THE MEDICATIONS TO WORK. PT THEN BECAME FIXATED ON DISCHARGING WEDNESDAY DUE TO A IN THE FAMILY, WHICH SHE HAS SAID BEFORE TO TRY TO LEAVE. FAMILY HAS BEEN CONTACTED AND THERE HAVE BEEN NO RECENT DEATHS IN THE FAMILY. PT DENIES SI, BUT THEN STATES I AM GOING TO KILL MYSELF IF I DON'T LEAVE. PT WILL THEN SAY I'M JUST JOKING I JUST WANT TO LEAVE. DENIES HI AND AVH AT THIS TIME. RATES ANXIETY AND DEPRESSION I DON'T KNOW I GUESS SOME. PT CONTINUES TO INTERMITTENLY COME TO NURSES STATION AND IS REDIRECTED BACK TO BED. SNACK AND DRINK PROVIDED. SUPPORT VOICED. DENIES PAIN.
[2024-04-14 06:00] VITALS: RESP 16
[2024-04-14] MEDS: thiamine 100 mg Tablet PO ×2 (08:05→20:46)
[2024-04-14] MEDS: paliperidone ER 3 mg Tablet PO (08:05)
[2024-04-14] MEDS: levothyroxine 125 mcg Tablet PO (08:05)
[2024-04-14 14:00] VITALS: BP 130/70; PULSE 91; RESP 18; TEMP 36.9; O2SAT 90
--- NOTE | 2024-04-14 16:21 | P.NPUPN_ITS ---
Subjective NPU 2 Subjective: 64-year-old female with a history of dem entia and psychosis. The patient continues to appear confused. She repeatedly asks several different staff members whether they were the doctor. She had continued to perseverate about wanting to leave the hospital. The patient had contacted her brother and apparently received information that her brother was not willing to pick her up and have her leave this facility. The family had reported to the team that they did not feel that they could manage her currently. She continued to remain compliant with her oral medications. Mental Status Exam 2 MSE Comments: This is a well-nourished well-developed white female looking somewhat older than her stated age in hospital scrubs with limited grooming and adequate eye contact. No abnormal movements except for psychomotor agitation. She was cooperative with exam in mild to moderate distress. Speech was normal in rate and volume. Mood described as okay. Affect: odd and subdued. Thought process: nonlinear and perseverative. Thought content: Patient denies suicidal or homicidal ideation, there were no delusions reported or noted, she denied auditory or visual hallucinations. Impoverished content as well. She did not appear to be responding to internal stimuli. Attention was variable. Insight, judgment and impulse control are all impaired. Mini-Mental status exam was completed today with the patient scoring 17 out of 30. She was alert and oriented to person but not country town location date or season. Her registration was 2 out of 3 and her recall was 0 out of 3. She scored 4 out of 5 on attention and calculation. She was able to follow three-step commands and failed at copying a design and writing a sentence. There was no evidence of any anomia. Vitals/I&O/Wt Last Vital Signs Temp 98.5 F 04/14/24 14:00 Pulse 91 04/14/24 14:00 Resp 18 04/14/24 14:00 BP 130/70 04/14/24 14:00 Pulse Ox 90 04/14/24 14:00 O2 Del Method Room Air 04/13/24 06:00 Data NPU 04/03/24 15:04 04/03/24 15:04 A&P Assessment and plan (1) Dementia: Qualifiers: Dementia behavioral or psychological symptom: with mood disturbance D ementia severity: unspecified severity Dementia type: unspecified type Q ualified Code(s): F03.93 - Unspecified dementia, unspecified severity, with mood disturbance (2) Psychosis: (3) Homicidal ideation: (4) Cannabis use disorder: Plan This is a 63-year-old white female with a long history of mental health and addiction issues throughout her life with a preponderance of addiction issues reported per family reports through collateral information. She however presents today floridly psychotic, confused about why she is here, perseverating about getting her closer to being able to get back to her purse without any understanding of where she is or the purpose of this hospitalization. She presented positive for cannabis on the drug screen and we had cannabis Gummies and her belongings. We will need to figure out how to break her psychosis to figure out what element of this is cannabis induced and if there is any element of dementia present. 1. Invega 3mg daily and Memantine as prescribed. Continue thiamine 100 mg p.o. twice daily in case this reflects some kind of Wernicke presentation. Check b12, folate, Vitamin D. 2. Continue every 15 minute checks for safety. 3. Encourage individual, group and milieu therapy. 4. Obtain collateral information. 5. Will quickly change the 96-hour hold to 21-day hold.21-day hold paperwork filed and her hearing will be 03/31/2024 at 2 PM. She was placed on a 21-day hold on 03/31/2024 6. Encourage sober living treatment after discharge at the highest level care to which she is willing to commit. 7. Patient will require 24 hour supervision per [facility] testing. LEVEL 2 paperwork completed today. PDMP PDMP Reviewed: Not Reviewed Involuntary Hold Information 2 96 Hour Hold: 96 Hour Involuntary Admission: Yes 96 Hour Hold Ending Date: 04/03/24 96 Hour Hold Ending Time: 12:00 Other Hold: Hold End Date: 04/21/24 Attestations NPU 2 Medical Necessity Statement*: Inpatient hospitalization is medically necessary and the clinically appropriate intervention at this time. We will monitor medications and make changes as indicated. Likely length of stay 10-14 days. Coding Level of Care Code Acute Code for g Fwd Diagnoses Dementia F03.93 Dementia behavioral or psychological symptom: with mood disturbance Dementia severity: unspecified severity Dementia type: unspecified type Psychosis F29 Homicidal ideation R45.850 Cannabis use disorder F12.90
--- NOTE | 2024-04-14 16:36 | PC.NURSE ---
pt stated that she would rather be that be here. pt states she is going to kill herself and it will be our fault because we did not help her leave. pt does not have a plan.
[2024-04-14] MEDS: diphenhydrAMINE 50 mg Capsule PO (20:26)
[2024-04-14] MEDS: memantine 5 mg tablet 10 MG PO (20:26)
[2024-04-14] MEDS: trazodone 50 mg Tablet PO (20:26)
[2024-04-14] MEDS: haloperidol 5 mg Tablet PO (20:27)
[2024-04-14 22:00] VITALS: BP 153/73; PULSE 80; RESP 18; TEMP 37.1; O2SAT 97
[2024-04-15 06:00] VITALS: BP 116/64; PULSE 74; RESP 16; O2SAT 97
--- NOTE | 2024-04-15 08:52 | PC.NURSE ---
IN BED RESTING. AROUSES TO VOICE. PT TELLS THIS RN TO STOP ASKING ME STUFF AND GET OUT OF HERE. PT ENCOURAGED TO GET UP FOR BREAKFAST BUT DECLINES. DENIES PAIN. DENIES SI/HI AND AVH AT THIS TIME. SUPPORT VOICED.
[2024-04-15] MEDS: hyDROXYzine 25 mg Capsule 50 MG PO ×2 (09:42→16:17)
[2024-04-15] MEDS: ziprasidone hcl 20 mg Capsule PO ×2 (09:42→14:27)
[2024-04-15] MEDS: paliperidone ER 3 mg Tablet PO (09:42)
[2024-04-15] MEDS: levothyroxine 125 mcg Tablet PO (09:42)
[2024-04-15] MEDS: thiamine 100 mg Tablet PO ×2 (09:42→20:45)
--- NOTE | 2024-04-15 12:17 | P.NPUPN_ITS ---
Subjective NPU 2 Subjective: 64-year-old female with a history of dem entia and psychosis. No observable changes noted. She continued to perseverate about wanting to leave this unit. She was unable to describe where she was and continued to ask multiple people on the unit whether they were the doctor despite the internal communications writer of this note once again identifying himself as the doctor. Patient remained confused. 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 She remained compliant with her medications. Staff did not note any problems with aggression and she was redirectable despite being intrusive. Mental Status Exam 2 MSE Comments: This is a well-nourished well-developed white female looking somewhat older than her stated age in hospital scrubs with limited grooming and adequate eye contact. No abnormal movements except for psychomotor agitation. She was cooperative with exam in mild to moderate distress. Speech was normal in rate and volume. Mood described as okay. Affect: odd and subdued. Thought process: linear but superficial Thought content: Patient denies suicidal or homicidal ideation, there were no delusions reported or noted, she denied auditory or visual hallucinations. Impoverished content as well. She did not appear to be responding to internal stimuli. Attention was variable. Insight, judgment and impulse control are all impaired. Mini-Mental status exam was completed today with the patient scoring 17 out of 30. She was alert and oriented to person but not country town location date or season. Her registration was 2 out of 3 and her recall was 0 out of 3. She scored 4 out of 5 on attention and calculation. She was able to follow three-step commands and failed at copying a design and writing a sentence. There was no evidence of any anomia. Vitals/I&O/Wt Last Vital Signs Temp 98.8 F 04/14/24 22:00 Pulse 74 04/15/24 06:00 Resp 16 04/15/24 06:00 BP 116/64 04/15/24 06:00 Pulse Ox 97 04/15/24 06:00 O2 Del Method Room Air 04/13/24 06:00 Data NPU 04/03/24 15:04 04/03/24 15:04 A&P Assessment and plan (1) Dementia: Qualifiers: Dementia behavioral or psychological symptom: with mood disturbance D ementia severity: unspecified severity Dementia type: unspecified type Q ualified Code(s): F03.93 - Unspecified dementia, unspecified severity, with mood disturbance (2) Psychosis: (3) Homicidal ideation: (4) Cannabis use disorder: Plan This is a 63-year-old white female with a long history of mental health and addiction issues throughout her life with a preponderance of addiction issues reported per family reports through collateral information. She however presents today floridly psychotic, confused about why she is here, perseverating about getting her closer to being able to get back to her purse without any understanding of where she is or the purpose of this hospitalization. She presented positive for cannabis on the drug screen and we had cannabis Gummies and her belongings. We will need to figure out how to break her psychosis to figure out what element of this is cannabis induced and if there is any element of dementia present. 1. Invega 3mg daily and Memantine as prescribed. Continue thiamine 100 mg p.o. twice daily in case this reflects some kind of Wernicke presentation. Check b12, folate, Vitamin D. 2. Continue every 15 minute checks for safety. 3. Encourage individual, group and milieu therapy. 4. Obtain collateral information. 5. Will quickly change the 96-hour hold to 21-day hold.21-day hold paperwork filed and her hearing will be 03/31/2024 at 2 PM. She was placed on a 21-day hold on 03/31/2024 6. Encourage sober living treatment after discharge at the highest level care to which she is willing to commit. 7. Patient will require 24 hour supervision per [facility] testing. LEVEL 2 paperwork completed today. 8. Patient 17/30 on MMSE, may benefit from neuropsychological evaluation. Patient needs placement in dementia unit. PDMP PDMP Reviewed: Not Reviewed Involuntary Hold Information 2 96 Hour Hold: 96 Hour Involuntary Admission: Yes 96 Hour Hold Ending Date: 04/03/24 96 Hour Hold Ending Time: 12:00 Other Hold: Hold End Date: 04/21/24 Attestations NPU 2 Medical Necessity Statement*: Inpatient hospitalization is medically necessary and the clinically appropriate intervention at this time. We will monitor medications and make changes as indicated. Likely length of stay 10-14 days. Coding Level of Care Code Acute Code for [facility] Diagnoses Dementia F03.93 Dementia behavioral or psychological symptom: with mood disturbance Dementia severity: unspecified severity Dementia type: unspecified type Psychosis F29 Homicidal ideation R45.850 Cannabis use disorder F12.90
[2024-04-15 14:00] VITALS: BP 119/84; PULSE 79; RESP 18; TEMP 36.7; O2SAT 95
[2024-04-15] MEDS: haloperidol 5 mg Tablet PO ×2 (14:27→20:45)
[2024-04-15] MEDS: OLANZapine 5 mg ODT PO (16:17)
[2024-04-15 20:37] VITALS: RESP 18
--- NOTE | 2024-04-15 20:38 | PC.NURSE ---
Patient refused charge nurse notified.
[2024-04-15] MEDS: memantine 5 mg tablet 10 MG PO (20:45)
[2024-04-15] MEDS: trazodone 50 mg Tablet PO (20:45)
[2024-04-15] MEDS: diphenhydrAMINE 50 mg Capsule PO (20:45)
[2024-04-16 06:00] VITALS: RESP 18; BMI 23.6
--- NOTE | 2024-04-16 06:51 | PC.NURSE ---
Patient refused nurse notified.
[2024-04-16] MEDS: levothyroxine 125 mcg Tablet PO (10:57)
[2024-04-16] MEDS: ziprasidone hcl 20 mg Capsule PO ×2 (10:57→21:23)
[2024-04-16] MEDS: thiamine 100 mg Tablet PO ×2 (10:57→20:22)
[2024-04-16] MEDS: paliperidone ER 3 mg Tablet PO (10:57)
[2024-04-16 14:00] VITALS: BP 126/75; PULSE 87; RESP 18; TEMP 36.6; O2SAT 96
--- NOTE | 2024-04-16 15:42 | P.NPUPN_ITS ---
Subjective NPU 2 Subjective: 64-year-old female with a history of dem entia and psychosis. The patient remained confused on the unit. She continued to reiterate that she [place] and she did identify correctly the city that she had resided in. She continued remain confused about her own whereabouts here and was unable to describe the current name of this place that she had been at for her hospitalization. She continued to appear confused about who the physician was here on the unit. She had continued to struggle with poor boundaries that she wandered into other peers rooms at times and did require redirection. Mental Status Exam 2 MSE Comments: This is a well-nourished well-developed white female looking somewhat older than her stated age in hospital scrubs with limited grooming and adequate eye contact. No abnormal movements except for psychomotor agitation. She was cooperative with exam in mild to moderate distress. Speech was normal in rate and volume. Mood described as upset. Affect: odd and subdued. Thought process: linear but superficial Thought content: Patient denies suicidal or homicidal ideation, there were no delusions reported or noted, she denied auditory or visual hallucinations. Impoverished content as well. She did not appear to be responding to internal stimuli. Attention was variable. Insight, judgment and impulse control are all impaired. Mini-Mental status exam was completed today with the patient scoring 17 out of 30. She was alert and oriented to person but not country town location date or season. Her registration was 2 out of 3 and her recall was 0 out of 3. She scored 4 out of 5 on attention and calculation. She was able to follow three-step commands and failed at copying a design and writing a sentence. Vitals/I&O/Wt Last Vital Signs Temp 98.1 F 04/15/24 14:00 Pulse 79 04/15/24 14:00 Resp 18 04/16/24 06:00 BP 119/84 04/15/24 14:00 Pulse Ox 95 04/15/24 14:00 O2 Del Method Room Air 04/13/24 06:00 Weight last 48 hrs Weight 56.699 kg Data NPU 04/03/24 15:04 04/03/24 15:04 A&P Assessment and plan (1) Dementia: Qualifiers: Dementia behavioral or psychological symptom: with mood disturbance D ementia severity: unspecified severity Dementia type: unspecified type Q ualified Code(s): F03.93 - Unspecified dementia, unspecified severity, with mood disturbance (2) Psychosis: (3) Homicidal ideation: (4) Cannabis use disorder: Plan This is a 63-year-old white female with a long history of mental health and addiction issues throughout her life with a preponderance of addiction issues reported per family reports through collateral information. She however presents today floridly psychotic, confused about why she is here, perseverating about getting her closer to being able to get back to her purse without any understanding of where she is or the purpose of this hospitalization. She presented positive for cannabis on the drug screen and we had cannabis Gummies and her belongings. We will need to figure out how to break her psychosis to figure out what element of this is cannabis induced and if there is any element of dementia present. 1. Invega 3mg daily and Memantine as prescribed. Continue thiamine 100 mg p.o. twice daily in case this reflects some kind of Wernicke presentation. Check b12, folate, Vitamin D. 2. Continue every 15 minute checks for safety. 3. Encourage individual, group and milieu therapy. 4. Obtain collateral information. 5. Will quickly change the 96-hour hold to 21-day hold.21-day hold paperwork filed and her hearing will be 03/31/2024 at 2 PM. She was placed on a 21-day hold on 03/31/2024 6. Encourage sober living treatment after discharge at the highest level care to which she is willing to commit. 7. Patient will require 24 hour supervision per [facility] testing. LEVEL 2 paperwork completed today. 8. Patient 17/30 on MMSE, may benefit from neuropsychological evaluation. Patient needs placement in dementia unit. PDMP PDMP Reviewed: Not Reviewed Involuntary Hold Information 2 96 Hour Hold: 96 Hour Involuntary Admission: Yes 96 Hour Hold Ending Date: 04/03/24 96 Hour Hold Ending Time: 12:00 Other Hold: Hold End Date: 04/21/24 Attestations NPU 2 Medical Necessity Statement*: Inpatient hospitalization is medically necessary and the clinically appropriate intervention at this time. We will monitor medications and make changes as indicated. Likely length of stay 10-14 days. Coding Level of Care Code Acute Code for [facility] Diagnoses Dementia F03.93 Dementia behavioral or psychological symptom: with mood disturbance Dementia severity: unspecified severity Dementia type: unspecified type Psychosis F29 Homicidal ideation R45.850 Cannabis use disorder F12.90
[2024-04-16] MEDS: diphenhydrAMINE 50 mg Capsule PO ×2 (15:52→20:22)
[2024-04-16] MEDS: haloperidol 5 mg Tablet PO ×2 (15:52→20:22)
[2024-04-16] MEDS: memantine 5 mg tablet 10 MG PO (20:21)
[2024-04-16] MEDS: trazodone 50 mg Tablet PO ×2 (20:22→21:23)
[2024-04-16 22:00] VITALS: BP 135/80; PULSE 76; RESP 18; TEMP 36.6; O2SAT 97
[2024-04-17] MEDS: ziprasidone hcl 20 mg Capsule PO ×2 (12:13→20:52)
[2024-04-17] MEDS: paliperidone ER 3 mg Tablet PO (12:13)
[2024-04-17] MEDS: levothyroxine 125 mcg Tablet PO (12:14)
[2024-04-17] MEDS: thiamine 100 mg Tablet PO ×2 (12:14→20:24)
[2024-04-17 14:00] VITALS: BP 122/69; PULSE 94; RESP 17; TEMP 36.5; O2SAT 94
--- NOTE | 2024-04-17 15:17 | W.PM.NPUPNS ---
Subjective NPU Subjective: 64-year-old female with a history of dementia and psychosis. Patient had continued to appear confused and intrusive on the unit. She had difficulties following directions as she had repeatedly attempted to enter into other peoples rooms. She continued to appear confused about who and where she was at this time. She had no episodes of enuresis. There was no evidence of aggression. She had been compliant with her oral medications and continued to eat and drink fluids during meals. She had reported adequate sleep and continued to have no involvement with groups. Mental Status Exam MSE Comments: This is a well-nourished well-developed white female looking somewhat older than her stated age in hospital scrubs with limited grooming and adequate eye contact. No abnormal movements except for mild psychomotor agitation. She was cooperative with exam in mild to moderate distress. Speech was normal in rate and volume. Mood described as okay. Affect: odd and subdued. Thought process: linear but superficial Thought content: Patient denies suicidal or homicidal ideation, there were no delusions reported or noted, she denied auditory or visual hallucinations. Impoverished content as well. She did not appear to be responding to internal stimuli. Attention was variable. Insight, judgment and impulse control are all impaired. Mini-Mental status exam was completed today with the patient scoring 17 out of 30. She was alert and oriented to person but not country town location date or season. Her registration was 2 out of 3 and her recall was 0 out of 3. She scored 4 out of 5 on attention and calculation. She was able to follow three-step commands and failed at copying a design and writing a sentence. Vitals/I&O/Wt Last Vital Signs Temp 97.8 F 04/16/24 22:00 Pulse 76 04/16/24 22:00 Resp 18 04/16/24 22:00 BP 135/80 04/16/24 22:00 Pulse Ox 97 04/16/24 22:00 O2 Del Method Room Air 04/13/24 06:00 Weight last 48 hrs Weight 56.699 kg Data NPU 04/03/24 15:04 04/03/24 15:04 A&P Assessment and plan (1) Dementia: Qualifiers: Dementia behavioral or psychological symptom: with mood disturbance Dementia severity: unspecified severity Dementia type: unspecified type Qualified Code(s): F03.93 - Unspecified dementia, unspecified severity, with mood disturbance (2) Psychosis: (3) Homicidal ideation: (4) Cannabis use disorder: Plan This is a 63-year-old white female with a long history of mental health and addiction issues throughout her life with a preponderance of addiction issues reported per family reports through collateral information. She however presents today floridly psychotic, confused about why she is here, perseverating about getting her closer to being able to get back to her purse without any understanding of where she is or the purpose of this hospitalization. She presented positive for cannabis on the drug screen and we had cannabis Gummies and her belongings. We will need to figure out how to break her psychosis to figure out what element of this is cannabis induced and if there is any element of dementia present. 1. Invega 3mg daily and Memantine as prescribed. Continue thiamine 100 mg p.o. twice daily in case this reflects some kind of Wernicke presentation. Check b12, folate, Vitamin D. 2. Continue every 15 minute checks for safety. 3. Encourage individual, group and milieu therapy. 4. Obtain collateral information. 5. Will quickly change the 96-hour hold to 21-day hold.21-day hold paperwork filed and her hearing will be 03/31/2024 at 2 PM. She was placed on a 21-day hold on 03/31/2024 6. Encourage sober living treatment after discharge at the highest level care to which she is willing to commit. 7. Patient will require 24 hour supervision per [facility] testing. LEVEL 2 paperwork completed. 8. Patient 17/30 on MMSE, may benefit from neuropsychological evaluation. Patient needs placement in dementia unit. PDMP PDMP Reviewed: Not Reviewed Involuntary Hold Information 96 Hour Hold: 96 Hour Involuntary Admission: Yes 96 Hour Hold Ending Date: 04/03/24 96 Hour Hold Ending Time: 12:00 Other Hold: Hold End Date: 04/21/24 Attestations NPU Medical Necessity Statement*: Inpatient hospitalization is medically necessary and the clinically appropriate intervention at this time. We will monitor medications and make changes as indicated. Likely length of stay 10-14 days. Coding Level of Care Code Acute Code for [facility] Fwd Diagnoses Dementia F03.93 Dementia behavioral or psychological symptom: with mood disturbance Dementia severity: unspecified severity Dementia type: unspecified type Psychosis F29 Homicidal ideation R45.850 Cannabis use disorder F12.90
[2024-04-17] MEDS: memantine 5 mg tablet 10 MG PO (20:24)
[2024-04-17 20:38] VITALS: BP 129/79; PULSE 103; RESP 18; TEMP 36.8; O2SAT 98
[2024-04-17] MEDS: ondansetron 4 MG Tablet PO (20:52)
[2024-04-17] MEDS: trazodone 50 mg Tablet PO ×2 (20:57→23:19)
[2024-04-18 06:00] VITALS: RESP 18
--- NOTE | 2024-04-18 06:46 | PC.NURSE ---
Patient refused charge nurse notified
[2024-04-18] MEDS: levothyroxine 125 mcg Tablet PO (08:49)
[2024-04-18] MEDS: paliperidone ER 3 mg Tablet PO (08:49)
[2024-04-18 14:00] VITALS: BP 136/64; PULSE 80; RESP 18; TEMP 36.8; O2SAT 96
--- NOTE | 2024-04-18 14:39 | P.NPUPN_ITS ---
Subjective NPU 2 Subjective: 64-year-old female with a history of dem entia and psychosis. Patient had no acts of aggression. She continued to appear confused asking again who the doctor was at the hospital. She continued to perseverate about wanting to go to live with her son. She had required redirection on the unit for entering into other peoples rooms with poor boundaries noted. The patient continued to report that she was going to go back to work. Patient had been able to eat but required prompting for completing activities of daily living including showering and brushing her teeth. Mental Status Exam 2 MSE Comments: This is a well-nourished well-developed white female looking somewhat older than her stated age in hospital scrubs with limited grooming and adequate eye contact. No abnormal movements except for mild psychomotor agitation. She was cooperative with exam in mild to moderate distress. Speech was normal in rate and volume. Mood described as good. Affect: odd, subdued and mood incongruent. Thought process: linear, but superficial Thought content: Patient denies suicidal or homicidal ideation, there were no delusions reported or noted, she denied auditory or visual hallucinations. Impoverished content as well. She did not appear to be responding to internal stimuli. Attention was variable. Insight, judgment and impulse control are all impaired. Mini- Mental status exam was completed with the patient scoring 17 out of 30. She was alert and oriented to person but not country town location date or season. Her registration was 2 out of 3 and her recall was 0 out of 3. She scored 4 out of 5 on attention and calculation. She was able to follow three-step commands and failed at copying a design and writing a sentence. Vitals/I&O/Wt Last Vital Signs Temp 98.3 F 04/17/24 20:38 Pulse 103 H 04/17/24 20:38 Resp 18 04/18/24 06:00 BP 129/79 04/17/24 20:38 Pulse Ox 98 04/17/24 20:38 O2 Del Method Room Air 04/17/24 20:38 04/17/24 04/18/24 04/18/24 22:59 06:59 14:59 Intake Total 240 / 240 Balance 240 / 240 Data NPU 04/03/24 15:04 04/03/24 15:04 A&P Assessment and plan (1) Dementia: Qualifiers: Dementia behavioral or psychological symptom: with mood disturbance D ementia severity: unspecified severity Dementia type: unspecified type Q ualified Code(s): F03.93 - Unspecified dementia, unspecified severity, with mood disturbance (2) Psychosis: (3) Homicidal ideation: (4) Cannabis use disorder: Plan This is a 63-year-old white female with a long history of mental health and addiction issues throughout her life with a preponderance of addiction issues reported per family reports through collateral information. She however presents today floridly psychotic, confused about why she is here, perseverating about getting her closer to being able to get back to her purse without any understanding of where she is or the purpose of this hospitalization. She presented positive for cannabis on the drug screen and we had cannabis Gummies and her belongings. We will need to figure out how to break her psychosis to figure out what element of this is cannabis induced and if there is any element of dementia present. 1. Invega 3mg daily and Memantine as prescribed. Continue thiamine 100 mg p.o. twice daily in case this reflects some kind of Wernicke presentation. Check b12, folate, Vitamin D. 2. Continue every 15 minute checks for safety. 3. Encourage individual, group and milieu therapy. 4. Obtain collateral information. 5. Will quickly change the 96-hour hold to 21-day hold.21-day hold paperwork filed and her hearing will be 03/31/2024 at 2 PM. She was placed on a 21-day hold on 03/31/2024 6. Encourage sober living treatment after discharge at the highest level care to which she is willing to commit. 7. Patient will require 24 hour supervision per [facility] testing. LEVEL 2 paperwork completed. 8. Patient 17/30 on MMSE, may benefit from neuropsychological evaluation. Patient needs placement in dementia unit but may be a candidate to live with family member until patient's guardianship hearing completed. PDMP PDMP Reviewed: Not Reviewed Involuntary Hold Information 2 96 Hour Hold: 96 Hour Involuntary Admission: Yes 96 Hour Hold Ending Date: 04/03/24 96 Hour Hold Ending Time: 12:00 Other Hold: Hold End Date: 04/21/24 Attestations NPU 2 Medical Necessity Statement*: Inpatient hospitalization is medically necessary and the clinically appropriate intervention at this time. We will monitor medications and make changes as indicated. Likely length of stay 5-7 days. Coding Level of Care Code Acute Code for g Fwd Diagnoses Dementia F03.93 Dementia behavioral or psychological symptom: with mood disturbance Dementia severity: unspecified severity Dementia type: unspecified type Psychosis F29 Homicidal ideation R45.850 Cannabis use disorder F12.90
[2024-04-18 19:57] VITALS: BP 134/62; PULSE 84; RESP 18; TEMP 36.6; O2SAT 96
[2024-04-18] MEDS: thiamine 100 mg Tablet PO (20:00)
[2024-04-18] MEDS: memantine 5 mg tablet 10 MG PO (20:00)
[2024-04-18] MEDS: hyDROXYzine 25 mg Capsule 50 MG PO (20:00)
[2024-04-18] MEDS: trazodone 50 mg Tablet PO (20:00)
--- NOTE | 2024-04-19 06:33 | PC.NURSE ---
pt sleeping vs not collected per charge resp 16
[2024-04-19] MEDS: paliperidone ER 3 mg Tablet PO (09:02)
[2024-04-19] MEDS: thiamine 100 mg Tablet PO ×2 (09:02→20:07)
[2024-04-19 14:00] VITALS: BP 124/82; PULSE 94; RESP 18; TEMP 36.9; O2SAT 96
--- NOTE | 2024-04-19 14:30 | W.PM.NPUPNS ---
Subjective NPU Subjective: 64-year-old female with a history of dementia and psychosis. There were no acts of aggression. She continued to remain intrusive entering into other patients rooms. She was redirectable and appeared to be able to engage in showering and required some help for initiating and completing activities of daily living such as brushing her teeth. She had continued to perseverate about needing to go home but remained uncertain as to the name of the place that she currently lived at at this time. She had stated that her son was coming to pick her up soon. Patient had reported adequate sleep. Mental Status Exam MSE Comments: This is a well-nourished well-developed white female looking somewhat older than her stated age in hospital scrubs with limited grooming and adequate eye contact. No abnormal movements except for mild psychomotor agitation. She was cooperative with exam in mild to moderate distress. Speech was normal in rate and volume. Mood described as okay. Affect: was odd and subdued and mood incongruent. Thought process: linear, but superficial Thought content: Patient denies suicidal or homicidal ideation, there were no delusions reported or noted, she denied auditory or visual hallucinations. Impoverished content as well. She did not appear to be responding to internal stimuli. Attention was variable. Insight, judgment and impulse control are all impaired. Mini-Mental status exam was completed with the patient scoring 17 out of 30. She was alert and oriented to person but not country town location date or season. Her registration was 2 out of 3 and her recall was 0 out of 3. She scored 4 out of 5 on attention and calculation. She was able to follow three-step commands and failed at copying a design and writing a sentence. Vitals/I&O/Wt Last Vital Signs Temp 97.8 F 04/18/24 19:57 Pulse 84 04/18/24 19:57 Resp 18 04/18/24 19:57 BP 134/62 04/18/24 19:57 Pulse Ox 96 04/18/24 19:57 O2 Del Method Room Air 04/18/24 19:57 Data NPU 04/03/24 15:04 04/03/24 15:04 A&P Assessment and plan (1) Dementia: Qualifiers: Dementia behavioral or psychological symptom: with mood disturbance Dementia severity: unspecified severity Dementia type: unspecified type Qualified Code(s): F03.93 - Unspecified dementia, unspecified severity, with mood disturbance (2) Psychosis: (3) Homicidal ideation: (4) Cannabis use disorder: Plan This is a 63-year-old white female with a long history of mental health and addiction issues throughout her life with a preponderance of addiction issues reported per family reports through collateral information. She however presents today floridly psychotic, confused about why she is here, perseverating about getting her closer to being able to get back to her purse without any understanding of where she is or the purpose of this hospitalization. She presented positive for cannabis on the drug screen and we had cannabis Gummies and her belongings. We will need to figure out how to break her psychosis to figure out what element of this is cannabis induced and if there is any element of dementia present. 1. Invega 3mg daily and Memantine as prescribed. Continue thiamine 100 mg p.o. twice daily in case this reflects some kind of Wernicke presentation. Check b12, folate, Vitamin D. 2. Continue every 15 minute checks for safety. 3. Encourage individual, group and milieu therapy. 4. Obtain collateral information. 5. Will quickly change the 96-hour hold to 21-day hold.21-day hold paperwork filed and her hearing will be 03/31/2024 at 2 PM. She was placed on a 21-day hold on 03/31/2024 6. Encourage sober living treatment after discharge at the highest level care to which she is willing to commit. 7. Patient will require 24 hour supervision per [facility] testing. LEVEL 2 paperwork completed. 8. Patient 17/30 on MMSE, may benefit from neuropsychological evaluation. Patient needs placement in dementia unit but may be a candidate to live with family member until patient's guardianship hearing completed. PDMP PDMP Reviewed: Not Reviewed Involuntary Hold Information 96 Hour Hold: 96 Hour Involuntary Admission: Yes 96 Hour Hold Ending Date: 04/03/24 96 Hour Hold Ending Time: 12:00 Other Hold: Hold End Date: 04/21/24 Attestations NPU Medical Necessity Statement*: Inpatient hospitalization is medically necessary and the clinically appropriate intervention at this time. We will monitor medications and make changes as indicated. The patient's likely length of stay is 4-6 days. Coding Level of Care Code Acute Code for [facility] Diagnoses Dementia F03.93 Dementia behavioral or psychological symptom: with mood disturbance Dementia severity: unspecified severity Dementia type: unspecified type Psychosis F29 Homicidal ideation R45.850 Cannabis use disorder F12.90
[2024-04-19] MEDS: OLANZapine 5 mg ODT PO (17:01)
[2024-04-19] MEDS: hyDROXYzine 25 mg Capsule 50 MG PO (19:19)
[2024-04-19 20:02] VITALS: BP 143/77; PULSE 90; RESP 18; TEMP 36.8; O2SAT 97
[2024-04-19] MEDS: simethicone 80 mg Chew PO (20:07)
[2024-04-19] MEDS: ziprasidone hcl 20 mg Capsule PO (20:07)
[2024-04-19] MEDS: haloperidol 5 mg Tablet PO (20:07)
[2024-04-19] MEDS: memantine 5 mg tablet 10 MG PO (20:07)
[2024-04-20 06:00] VITALS: BP 151/94; PULSE 90; RESP 18; TEMP 36.9; O2SAT 94
[2024-04-20] MEDS: paliperidone ER 3 mg Tablet PO (09:58)
[2024-04-20] MEDS: thiamine 100 mg Tablet PO ×2 (09:59→19:43)
--- NOTE | 2024-04-20 12:35 | W.PM.NPUPNS ---
Subjective NPU Subjective: 64-year-old female with a history of dementia and psychosis. There were no changes overall in regards to aggression or agitation. She continued to remain confused and struggled with poor boundaries that she had attempted to go into other peoples rooms at times while reiterating that she needed to go home with her son. She had continued to eat and did appear at times to engage in self-care with some prompting. No worsening mood was noted since the Invega was reduced to 3 mg earlier this week. Mental Status Exam MSE Comments: This is a well-nourished well-developed white female looking somewhat older than her stated age in hospital scrubs with limited grooming and adequate eye contact. No abnormal movements except for mild psychomotor agitation. She was cooperative with exam in mild to moderate distress. Speech was normal in rate and volume. Mood described as good. Affect: was odd and subdued and mood incongruent. Thought process: linear, but superficial Thought content: Patient denies suicidal or homicidal ideation, there were no delusions reported or noted, she denied auditory or visual hallucinations. Impoverished content as well. She did not appear to be responding to internal stimuli. Attention was variable. Insight, judgment and impulse control are all impaired. Mini-Mental status exam was completed with the patient scoring 17 out of 30. She was alert and oriented to person but not country town location date or season. Her registration was 2 out of 3 and her recall was 0 out of 3. She scored 4 out of 5 on attention and calculation. She was able to follow three-step commands and failed at copying a design and writing a sentence. Vitals/I&O/Wt Last Vital Signs Temp 98.5 F 04/20/24 06:00 Pulse 90 04/20/24 06:00 Resp 18 04/20/24 06:00 BP 151/94 04/20/24 06:00 Pulse Ox 94 04/20/24 06:00 O2 Del Method Room Air 04/19/24 20:02 Data NPU 04/03/24 15:04 04/03/24 15:04 A&P Assessment and plan (1) Dementia: Qualifiers: Dementia behavioral or psychological symptom: with mood disturbance Dementia severity: unspecified severity Dementia type: unspecified type Qualified Code(s): F03.93 - Unspecified dementia, unspecified severity, with mood disturbance (2) Psychosis: (3) Homicidal ideation: (4) Cannabis use disorder: Plan This is a 63-year-old white female with a long history of mental health and addiction issues throughout her life with a preponderance of addiction issues reported per family reports through collateral information. She however presents today floridly psychotic, confused about why she is here, perseverating about getting her closer to being able to get back to her purse without any understanding of where she is or the purpose of this hospitalization. She presented positive for cannabis on the drug screen and we had cannabis Gummies and her belongings. We will need to figure out how to break her psychosis to figure out what element of this is cannabis induced and if there is any element of dementia present. 1. Invega 3mg daily and Memantine as prescribed. Continue thiamine 100 mg p.o. twice daily in case this reflects some kind of Wernicke presentation. Vitamin D level 30ng/ml, will start 1000-2000mcg of Vit D3 orally 2. Continue every 15 minute checks for safety. 3. Encourage individual, group and milieu therapy. 4. Obtain collateral information. 5. Will quickly change the 96-hour hold to 21-day hold.21-day hold paperwork filed and her hearing will be 03/31/2024 at 2 PM. She was placed on a 21-day hold on 03/31/2024 6. Encourage sober living treatment after discharge at the highest level care to which she is willing to commit. 7. Patient will require 24 hour supervision per [facility] testing. LEVEL 2 paperwork completed. 8. Patient 17/30 on MMSE, may benefit from neuropsychological evaluation. Patient needs placement in dementia unit but may be a candidate to live with family member until patient's guardianship hearing completed. PDMP PDMP Reviewed: Not Reviewed Involuntary Hold Information 96 Hour Hold: 96 Hour Involuntary Admission: Yes 96 Hour Hold Ending Date: 04/03/24 96 Hour Hold Ending Time: 12:00 Other Hold: Hold End Date: 04/20/24 Attestations NPU Medical Necessity Statement*: Inpatient hospitalization is medically necessary and the clinically appropriate intervention at this time. We will monitor medications and make changes as indicated. The patient's likely length of stay is 4-6 days. Coding Level of Care Code Acute Code for [facility] Diagnoses Dementia F03.93 Dementia behavioral or psychological symptom: with mood disturbance Dementia severity: unspecified severity Dementia type: unspecified type Psychosis F29 Homicidal ideation R45.850 Cannabis use disorder F12.90
[2024-04-20] MEDS: cholecalciferol (vitamin D3) 1,000 unit Tablet 2000 UNIT PO (13:41)
[2024-04-20 14:00] VITALS: BP 104/59; PULSE 104; RESP 18; TEMP 36.9; O2SAT 96
[2024-04-20] MEDS: calcium carbonate 500 mg Chew Tablet 1000 MG PO (18:07)
[2024-04-20 19:39] VITALS: BP 150/75; PULSE 88; RESP 18; TEMP 36.7; O2SAT 95
[2024-04-20] MEDS: diphenhydrAMINE 50 mg Capsule PO (19:43)
[2024-04-20] MEDS: memantine 5 mg tablet 10 MG PO (19:43)
[2024-04-20] MEDS: trazodone 50 mg Tablet PO (19:43)
[2024-04-20] MEDS: haloperidol 5 mg Tablet PO (19:44)
--- NOTE | 2024-04-20 20:44 | PC.NURSE ---
REMAINS AT THE NURSES STATION INTRUSIVE, PT GIVEN HALDOL 5 MG FOR AGITATION. TRAZODONE 50 MG GIVEN FOR SLEEP. PT HAS BEEN REDIRECTED MULTIPLE TIMES SUPPORT VOICED.
[2024-04-21] MEDS: ziprasidone hcl 20 mg Capsule PO ×2 (02:15→20:01)
[2024-04-21] MEDS: trazodone 50 mg Tablet PO ×2 (02:15→20:01)
--- NOTE | 2024-04-21 04:10 | PC.NURSE ---
PT WAS GIVEN BENADRYL 50 MG FOR AGITATION, TRAZODONE 50 MG FOR SLEEP AND HALDOL 5 MG FOR INCREASED ANXIETY AND AGITATION AT THE BEGINNING OF THE SHIFT. PT WAS ABLE TO EVENTUALLY LAY DOWN AND REST UNTIL APPROXIMATELY 0200 AM. PT THEN WOKE UP PACING HALLS ASKING FOR MORE SLEEP AIDES AND BREAD. PT WAS INFORMED RN WOULD GET HER MORE MEDICATIONS SHORTLY. PT CONTINUED TO STAND AT THE NURSES STATION AND SAY HURRY UP GET UP AND GET IT NOW. PT WAS INFORMED RN WAS ASSISTING WITH ANOTHER PT AND IT WOULD BE A MINUTE. PT WOULD THEN STAND AT THE NURSES STATION BEING INTRUSIVE TELLING THE RN DID YOU GET IT, CAN YOU HURRY UP AND GET MY BREAD AND SLEEP AIDES. PT WAS GIVEN GEODON 20 MG FOR INCREASE AGITATION AND TRAZODONE 50 MG FO SLEEP. PT CURRENTLY RESTING WITH EYES CLOSED. MEDICATIONS DEEMED EFFECTIVE AT THIS TIME.
--- NOTE | 2024-04-21 06:33 | PC.NURSE ---
Vs not collected per charge nurse resp 16
[2024-04-21] MEDS: paliperidone ER 3 mg Tablet PO (08:44)
[2024-04-21] MEDS: thiamine 100 mg Tablet PO ×2 (08:44→20:01)
[2024-04-21] MEDS: cholecalciferol (vitamin D3) 1,000 unit Tablet 2000 UNIT PO (12:55)
[2024-04-21 14:00] VITALS: BP 116/64; PULSE 63; RESP 18; TEMP 36.6; O2SAT 98
[2024-04-21] MEDS: acetaminophen 325 mg Tablet 650 MG PO (17:54)
--- NOTE | 2024-04-21 18:38 | P.NPUPN_ITS ---
Subjective NPU 2 Subjective: Patient presented today reporting that she was going home tomorrow which has been her mantra for weeks now. We had a conversation about going to the hearing for the 90-day hold. She reported she wanted to go and we discussed with this screenplay writer would report when on the stand. She seen the time to be confused about the purpose of the hearing because she continued to report a plan for discharge tomorrow. She stated that she had never said she was leaving tomorrow before and we discussed that that has been something she said almost every day that she has been here. At the end of a fairly lengthy discussion she asked this screenplay writer who are you? And lacked clarity as to my identity even with our multiple previous encounters. We continue to discuss concern for her safety and functioning with this level of cognitive impairment/memory impairment/dementia. She did attend the hearing and continued on the hold. But will return she had no reported recollection of the court proceedings and denied knowledge that she was placed on a hold. She denied any problems or side effects with her medications. Mental Status Exam 2 MSE Comments: This is a well-nourished well-developed white female looking somewhat older than her stated age in hospital scrubs with limited grooming and adequate eye contact. No abnormal movements except for mild psychomotor agitation. She was cooperative with exam in mild to moderate distress. Speech was normal in rate and volume. Mood described as good. Affect: was odd and subdued. Thought process: linear, but superficial. Thought content: Patient denies suicidal or homicidal ideation, there were no delusions reported or noted, she denied auditory or visual hallucinations. Impoverished content as well. She did not appear to be responding to internal stimuli. Attention was variable. Insight, judgment and impulse control are all impaired. Mini-Mental status exam was completed with the patient most recently scoring 16 out of 30. She was alert and oriented to person but not country town location date or season. Vitals/I&O/Wt Last Vital Signs Temp 98 F 04/21/24 14:00 Pulse 63 04/21/24 14:00 Resp 18 04/21/24 14:00 BP 116/64 04/21/24 14:00 Pulse Ox 98 04/21/24 14:00 O2 Del Method Room Air 04/20/24 19:39 Data NPU 04/03/24 15:04 02/03/25 15:04 A&P Assessment and plan (1) Dementia: Qualifiers: Dementia behavioral or psychological symptom: with mood disturbance D ementia severity: unspecified severity Dementia type: unspecified type Q ualified Code(s): F03.93 - Unspecified dementia, unspecified severity, with mood disturbance (2) Psychosis: (3) Homicidal ideation: (4) Cannabis use disorder: Plan This is a 63-year-old white female with a long history of mental health and addiction issues throughout her life with a preponderance of addiction issues reported per family reports through collateral information. She however presents today floridly psychotic, confused about why she is here, perseverating about getting her closer to being able to get back to her purse without any understanding of where she is or the purpose of this hospitalization. She presented positive for cannabis on the drug screen and we had cannabis Gummies and her belongings. We will need to figure out how to break her psychosis to figure out what element of this is cannabis induced and if there is any element of dementia present. 1. Invega 3mg daily and Memantine as prescribed. Continue thiamine 100 mg p.o. twice daily in case this reflects some kind of Wernicke presentation. Vitamin D level 30ng/ml, will start 1000-2000mcg of Vit D3 orally 2. Continue every 15 minute checks for safety. 3. Encourage individual, group and milieu therapy. 4. Obtain collateral information. 5. Will quickly change the 96-hour hold to 21-day hold.21-day hold paperwork filed and her hearing will be 03/31/2024 at 2 PM. She was placed on a 21-day hold on 03/31/2024. 90-day hold paperwork filed and she had her hearing today 04/21/2024. The 90-day hold was granted. 6. Encourage sober living treatment after discharge at the highest level care to which she is willing to commit. 7. Patient will require 24 hour supervision per [facility] testing. LEVEL 2 paperwork completed. 8. Patient 17/30 on MMSE, may benefit from neuropsychological evaluation. Patient needs placement in dementia unit but may be a candidate to live with family member until patient's guardianship hearing completed. PDMP PDMP Reviewed: Not Reviewed Involuntary Hold Information 2 96 Hour Hold: 96 Hour Involuntary Admission: Yes 96 Hour Hold Ending Date: 04/03/24 96 Hour Hold Ending Time: 12:00 Other Hold: Hold End Date: 04/20/24 Attestations NPU 2 Medical Necessity Statement*: Inpatient hospitalization is medically necessary and the clinically appropriate intervention at this time. We will monitor medications and make changes as indicated. The patient's likely length of stay is 4-6 days. Coding Level of Care Code Acute Code for g Fwd Diagnoses Dementia F03.93 Dementia behavioral or psychological symptom: with mood disturbance Dementia severity: unspecified severity Dementia type: unspecified type Psychosis F29 Homicidal ideation R45.850 Cannabis use disorder F12.90
[2024-04-21 19:59] VITALS: BP 127/76; PULSE 101; RESP 16; TEMP 37.1; O2SAT 96
[2024-04-21] MEDS: haloperidol 5 mg Tablet PO (20:01)
[2024-04-21] MEDS: memantine 5 mg tablet 10 MG PO (20:01)
[2024-04-22 06:00] VITALS: BP 109/73; PULSE 82; RESP 16; TEMP 36.8; O2SAT 95
--- NOTE | 2024-04-22 08:50 | PC.NURSE ---
RESTING IN BED. DENIES PAIN. DENIES SI/HI AND AVH AT THIS TIME. RATES ANXIETY 5/10 AND DEPRESSION 0/10. WHEN AWAKE PT IS INTRUSIVE, IRRITABLE AND IMPULSIVE. REQUIRES CONSTANT RE-DIRECTION. PT REMAINS CONFUSED WITH DISORGANIZED THOUGHT PROCESS. SUPPORT VOICED.
[2024-04-22] MEDS: diphenhydrAMINE 50 mg Capsule PO ×2 (09:08→20:15)
[2024-04-22] MEDS: thiamine 100 mg Tablet PO ×2 (09:08→20:15)
[2024-04-22] MEDS: haloperidol 5 mg Tablet PO ×2 (09:08→20:15)
[2024-04-22] MEDS: paliperidone ER 3 mg Tablet PO (09:08)
[2024-04-22] MEDS: cholecalciferol (vitamin D3) 1,000 unit Tablet 2000 UNIT PO (09:08)
--- NOTE | 2024-04-22 09:46 | P.NPUPN_ITS ---
Subjective NPU 2 Subjective: Patient presented today reporting that she was going home tomorrow which has been her mantra for weeks now. We had a conversation her being on a 90-day hold. We continued to discuss concern for her safety and functioning with this level of cognitive impairment/memory impairment/dementia. She had no reported recollection of the court proceedings and denied knowledge that she was placed on a hold. She denied any problems or side effects with her medications. Mental Status Exam 2 MSE Comments: This is a well-nourished well-developed white female looking somewhat older than her stated age in hospital scrubs with limited grooming and adequate eye contact. No abnormal movements except for mild psychomotor agitation. She was cooperative with exam in mild to moderate distress. Speech was normal in rate and volume. Mood described as good. Affect: was odd and subdued. Thought process: linear, but superficial. Thought content: Patient denies suicidal or homicidal ideation, there were no delusions reported or noted, she denied auditory or visual hallucinations. Impoverished content as well. She did not appear to be responding to internal stimuli. Attention was variable. Insight, judgment and impulse control are all impaired. Mini-Mental status exam was completed with the patient most recently scoring 16 out of 30. She was alert and oriented to person but not country town location date or season. Vitals/I&O/Wt Last Vital Signs Temp 98.2 F 04/22/24 06:00 Pulse 82 04/22/24 06:00 Resp 16 04/22/24 06:00 BP 109/73 04/22/24 06:00 Pulse Ox 95 04/22/24 06:00 O2 Del Method Room Air 04/20/24 19:39 Data NPU 04/03/24 15:04 04/03/24 15:04 A&P Assessment and plan (1) Dementia: Qualifiers: Dementia behavioral or psychological symptom: with mood disturbance D ementia severity: unspecified severity Dementia type: unspecified type Q ualified Code(s): F03.93 - Unspecified dementia, unspecified severity, with mood disturbance (2) Psychosis: (3) Homicidal ideation: (4) Cannabis use disorder: Plan This is a 63-year-old white female with a long history of mental health and addiction issues throughout her life with a preponderance of addiction issues reported per family reports through collateral information. She however presents today floridly psychotic, confused about why she is here, perseverating about getting her closer to being able to get back to her purse without any understanding of where she is or the purpose of this hospitalization. She presented positive for cannabis on the drug screen and we had cannabis Gummies and her belongings. We will need to figure out how to break her psychosis to figure out what element of this is cannabis induced and if there is any element of dementia present. 1. Invega 3mg daily and Memantine as prescribed. Continue thiamine 100 mg p.o. twice daily in case this reflects some kind of Wernicke presentation. Vitamin D level 30ng/ml, will start 1000-2000mcg of Vit D3 orally 2. Continue every 15 minute checks for safety. 3. Encourage individual, group and milieu therapy. 4. Obtain collateral information. 5. Will quickly change the 96-hour hold to 21-day hold.21-day hold paperwork filed and her hearing will be 03/31/2024 at 2 PM. She was placed on a 21-day hold on 03/31/2024. 90-day hold paperwork filed and she had her hearing today 04/21/2024. The 90-day hold was granted. 6. Encourage sober living treatment after discharge at the highest level care to which she is willing to commit. 7. Patient will require 24 hour supervision per [facility] testing. LEVEL 2 paperwork completed. 8. Patient 17/30 on MMSE, may benefit from neuropsychological evaluation. Patient needs placement in dementia unit but may be a candidate to live with family member until patient's guardianship hearing completed. PDMP PDMP Reviewed: Not Reviewed Involuntary Hold Information 2 96 Hour Hold: 96 Hour Involuntary Admission: Yes 96 Hour Hold Ending Date: 04/03/24 96 Hour Hold Ending Time: 12:00 Other Hold: Hold End Date: 04/20/24 Attestations NPU 2 Medical Necessity Statement*: Inpatient hospitalization is medically necessary and the clinically appropriate intervention at this time. We will monitor medications and make changes as indicated. The patient's likely length of stay is 4-6 days. Coding Level of Care Code Acute Code for g Fwd Diagnoses Dementia F03.93 Dementia behavioral or psychological symptom: with mood disturbance Dementia severity: unspecified severity Dementia type: unspecified type Psychosis F29 Homicidal ideation R45.850 Cannabis use disorder F12.90
[2024-04-22 14:00] VITALS: BP 127/72; PULSE 99; RESP 16; TEMP 36.5; O2SAT 96
[2024-04-22] MEDS: hyDROXYzine 25 mg Capsule 50 MG PO (18:31)
[2024-04-22] MEDS: ziprasidone hcl 20 mg Capsule PO (18:31)
--- NOTE | 2024-04-22 18:33 | PC.NURSE ---
INTRUSIVE AT WINDOW ASKS RN CAN YOU GIVE ME SOMETHING TO KILL ME. PT STATES SHE'S UNCOMFORTABLE AND DOES NOT WANT TO LIVE ANYMORE. RN SPOKE TO PT AT LENGTH AND INFORMED HER SHE HAS A SMALL AMOUNT OF TIME LEFT IN HERE AND THEN SHE WILL BE ABLE TO BE OUT AND WITH HER FAMILY. PT THEN STATED OKAY I DON'T WANT TO ANYMORE. CAN I GET SOMETHING TO RELAX PT GIVEN ANTI ANXIETY MEDICATIONS SEE MAR. VISTARIL 50 MG AND GEODON 20 MG GIVEN ORDERED FOR AGITATION AND INCREASED ANXIETY
[2024-04-22] MEDS: memantine 5 mg tablet 10 MG PO (20:15)
[2024-04-22] MEDS: trazodone 50 mg Tablet PO (20:15)
[2024-04-22 20:44] VITALS: BP 116/65; PULSE 87; RESP 18; TEMP 36.9; O2SAT 96
[2024-04-23] MEDS: levothyroxine 125 mcg Tablet PO (05:32)
[2024-04-23 06:00] VITALS: BP 140/68; PULSE 65; RESP 16; TEMP 36.4; O2SAT 94
[2024-04-23] MEDS: paliperidone ER 3 mg Tablet PO (09:17)
[2024-04-23] MEDS: ziprasidone hcl 20 mg Capsule PO (09:17)
[2024-04-23] MEDS: thiamine 100 mg Tablet PO ×2 (09:17→20:53)
[2024-04-23] MEDS: cholecalciferol (vitamin D3) 1,000 unit Tablet 2000 UNIT PO (09:17)
--- NOTE | 2024-04-23 11:26 | P.NPUPN_ITS ---
Subjective NPU 2 Subjective: Patient presents today reporting that she is doing fine. She continues to believe that she is ready to leave and will be leaving tomorrow. We continue to discuss with her that we are managing her for her dementia and trying her best to figure out a discharge plan that allows her to stay safe but respects her desire to not be hospitalized. Staff reports that she is unchanged and continues to be confused and unsure who people are no matter how long she has worked with him. This is also noteworthy on direct observation. She did not report any side effects to medication. Mental Status Exam 2 MSE Comments: This is a well-nourished well-developed white female looking somewhat older than her stated age in hospital scrubs with limited grooming and adequate eye contact. No abnormal movements except for mild psychomotor agitation. She was cooperative with exam in mild to moderate distress. Speech was normal in rate and volume. Mood described as good. Affect: was odd and subdued. Thought process: linear, but superficial. Thought content: Patient denies suicidal or homicidal ideation, there were no delusions reported or noted, she denied auditory or visual hallucinations. Impoverished content as well. She did not appear to be responding to internal stimuli. Attention was variable. Insight, judgment and impulse control are all impaired. Mini-Mental status exam was completed with the patient most recently scoring 16 out of 30. She was alert and oriented to person but not country town location date or season. Vitals/I&O/Wt Last Vital Signs Temp 97.6 F 04/23/24 06:00 Pulse 65 04/23/24 06:00 Resp 16 04/23/24 06:00 BP 140/68 04/23/24 06:00 Pulse Ox 94 04/23/24 06:00 O2 Del Method Room Air 04/20/24 19:39 04/22/24 04/23/24 04/23/24 22:59 06:59 14:59 Intake Total 480 / 480 Balance 480 / 480 Weight last 48 hrs Weight 54.068 kg Data NPU 04/03/24 15:04 04/03/24 15:04 A&P Assessment and plan (1) Dementia: Qualifiers: Dementia behavioral or psychological symptom: with mood disturbance D ementia severity: unspecified severity Dementia type: unspecified type Q ualified Code(s): F03.93 - Unspecified dementia, unspecified severity, with mood disturbance (2) Psychosis: (3) Homicidal ideation: (4) Cannabis use disorder: Plan This is a 63-year-old white female with a long history of mental health and addiction issues throughout her life with a preponderance of addiction issues reported per family reports through collateral information. She however presents today floridly psychotic, confused about why she is here, perseverating about getting her closer to being able to get back to her purse without any understanding of where she is or the purpose of this hospitalization. She presented positive for cannabis on the drug screen and we had cannabis Gummies and her belongings. We will need to figure out how to break her psychosis to figure out what element of this is cannabis induced and if there is any element of dementia present. 1. Invega 3mg daily and Memantine as prescribed. Continue thiamine 100 mg p.o. twice daily in case this reflects some kind of Wernicke presentation. Vitamin D level 30ng/ml, will start 1000-2000mcg of Vit D3 orally 2. Continue every 15 minute checks for safety. 3. Encourage individual, group and milieu therapy. 4. Obtain collateral information. 5. Will quickly change the 96-hour hold to 21-day hold.21-day hold paperwork filed and her hearing will be 03/31/2024 at 2 PM. She was placed on a 21-day hold on 03/31/2024. 90-day hold paperwork filed and she had her hearing today 04/21/2024. The 90-day hold was granted. 6. Encourage sober living treatment after discharge at the highest level care to which she is willing to commit. 7. Patient will require 24 hour supervision per [facility] testing. LEVEL 2 paperwork completed. 8. Patient 17/30 on MMSE, may benefit from neuropsychological evaluation. Patient needs placement in dementia unit but may be a candidate to live with family member until patient's guardianship hearing completed. PDMP PDMP Reviewed: Not Reviewed Involuntary Hold Information 2 96 Hour Hold: 96 Hour Involuntary Admission: Yes 96 Hour Hold Ending Date: 04/03/24 96 Hour Hold Ending Time: 12:00 Other Hold: Hold End Date: 04/20/24 Attestations NPU 2 Medical Necessity Statement*: Inpatient hospitalization is medically necessary and the clinically appropriate intervention at this time. We will monitor medications and make changes as indicated. The patient's likely length of stay is 4-6 days. Coding Level of Care Code Acute Code for g Fwd Diagnoses Dementia F03.93 Dementia behavioral or psychological symptom: with mood disturbance Dementia severity: unspecified severity Dementia type: unspecified type Psychosis F29 Homicidal ideation R45.850 Cannabis use disorder F12.90
[2024-04-23] MEDS: ondansetron 4 MG Tablet PO (13:52)
[2024-04-23 14:00] VITALS: BP 102/52; PULSE 80; RESP 16; TEMP 37.1; O2SAT 95
[2024-04-23] MEDS: hyDROXYzine 25 mg Capsule 50 MG PO ×2 (14:23→20:53)
[2024-04-23] MEDS: calcium carbonate 500 mg Chew Tablet 1000 MG PO (18:00)
[2024-04-23] MEDS: acetaminophen 325 mg Tablet 650 MG PO (18:35)
[2024-04-23] MEDS: memantine 5 mg tablet 10 MG PO (20:54)
[2024-04-23] MEDS: trazodone 50 mg Tablet PO (20:54)
[2024-04-23 21:26] VITALS: RESP 18
--- NOTE | 2024-04-23 21:26 | PC.NURSE ---
Patient refused nurse notified.
[2024-04-24 06:00] VITALS: RESP 16
--- NOTE | 2024-04-24 06:40 | PC.NURSE ---
Patient refused vital signs nurse notified.
[2024-04-24] MEDS: levothyroxine 125 mcg Tablet PO (06:47)
[2024-04-24] MEDS: paliperidone ER 3 mg Tablet PO (09:02)
[2024-04-24] MEDS: thiamine 100 mg Tablet PO ×2 (09:02→20:15)
[2024-04-24] MEDS: cholecalciferol (vitamin D3) 1,000 unit Tablet 2000 UNIT PO (09:02)
[2024-04-24] MEDS: haloperidol 5 mg Tablet PO (09:02)
[2024-04-24] MEDS: diphenhydrAMINE 50 mg Capsule PO (09:03)
--- NOTE | 2024-04-24 09:13 | PC.NURSE ---
CONTINUES TO HAVE BOUTS OF CONFUSION. PT DEMANDING WITH STAFF AND VERY INPATIENT, EXPECTING STAFF TO MEET HER NEEDS IMMEDIATELY. PT RATES ANXIETY AND DEPRESSION 12/08. PT WAS GIVEN BENADRYL 50 MG AND HALDOL 5 MG FOR INCREASED ANXIETY AND AGITATION. DENIES PAIN. REMAINS INTUSIVE AT THE WINDOW TELLING STAFF GET IT NOW GET IT NOW. PT IS VERBALLY REDIRECTED CONSTANTLY WITH NOT MUCH SUCCESS. DENIE SI/HI AND AVH AT THIS TIME. SUPPORT VOICED.
--- NOTE | 2024-04-24 12:35 | P.NPUPN_ITS ---
Subjective NPU 2 Subjective: Patient presented today reporting that things are going okay. We discussed the fact that we are considering having her leave but need to make sure that she is able to sleep which is a major problem that the family has endorsed. We discussed a plan to initiate [employer] to see if that could be an agent to assist with her sleep. We discussed with the family that we have done much of what we can do and that they are going to have to figure out how they want to manage her moving forward. They are working on guardianship and we are trying to figure out how to help him manage her sleep. Otherwise she continues to be the way she has been recently. She has been less perseverative and less actively asking questions again and again. But her memory still continues to be challenged. She denies any problems with her medication at this time. Mental Status Exam 2 MSE Comments: This is a well-nourished well-developed white female looking somewhat older than her stated age in hospital scrubs with limited grooming and adequate eye contact. No abnormal movements except for mild psychomotor agitation. She was cooperative with exam in mild to moderate distress. Speech was normal in rate and volume. Mood described as good. Affect: was odd and subdued. Thought process: linear, but superficial. Thought content: Patient denies suicidal or homicidal ideation, there were no delusions reported or noted, she denied auditory or visual hallucinations. Impoverished content as well. She did not appear to be responding to internal stimuli. Attention was variable. Insight, judgment and impulse control are all impaired. Mini-Mental status exam was completed with the patient most recently scoring 16 out of 30. She was alert and oriented to person but not country town location date or season. Vitals/I&O/Wt Last Vital Signs Temp 98.8 F 04/23/24 14:00 Pulse 80 04/23/24 14:00 Resp 16 04/24/24 06:00 BP 102/52 04/23/24 14:00 Pulse Ox 95 04/23/24 14:00 O2 Del Method Room Air 04/20/24 19:39 Weight last 48 hrs Weight 54.068 kg Data NPU 04/03/24 15:04 04/03/24 15:04 A&P Assessment and plan (1) Dementia: Qualifiers: Dementia behavioral or psychological symptom: with mood disturbance D ementia severity: unspecified severity Dementia type: unspecified type Q ualified Code(s): F03.93 - Unspecified dementia, unspecified severity, with mood disturbance (2) Psychosis: (3) Homicidal ideation: (4) Cannabis use disorder: Plan This is a 63-year-old white female with a long history of mental health and addiction issues throughout her life with a preponderance of addiction issues reported per family reports through collateral information. She however presents today floridly psychotic, confused about why she is here, perseverating about getting her closer to being able to get back to her purse without any understanding of where she is or the purpose of this hospitalization. She presented positive for cannabis on the drug screen and we had cannabis Gummies and her belongings. We will need to figure out how to break her psychosis to figure out what element of this is cannabis induced and if there is any element of dementia present. 1. Invega 3mg daily and Memantine as prescribed. Continue thiamine 100 mg p.o. twice daily in case this reflects some kind of Wernicke presentation. Vitamin D level 30ng/ml, will start 1000-2000mcg of Vit D3 orally 2. Continue every 15 minute checks for safety. 3. Encourage individual, group and milieu therapy. 4. Obtain collateral information. 5. Will quickly change the 96-hour hold to 21-day hold.21-day hold paperwork filed and her hearing will be 03/31/2024 at 2 PM. She was placed on a 21-day hold on 03/31/2024. 90-day hold paperwork filed and she had her hearing today 04/21/2024. The 90-day hold was granted. 6. Encourage sober living treatment after discharge at the highest level care to which she is willing to commit. 7. Patient will require 24 hour supervision per [facility] testing. LEVEL 2 paperwork completed. 8. Patient 17/30 on MMSE, may benefit from neuropsychological evaluation. Patient needs placement in dementia unit but may be a candidate to live with family member until patient's guardianship hearing completed. Guardianship hearing likely next week. Tentative plan for discharge tomorrow. PDMP PDMP Reviewed: Not Reviewed Involuntary Hold Information 2 96 Hour Hold: 96 Hour Involuntary Admission: Yes 96 Hour Hold Ending Date: 04/03/24 96 Hour Hold Ending Time: 12:00 Other Hold: Hold End Date: 04/20/24 Attestations NPU 2 Medical Necessity Statement*: Inpatient hospitalization is medically necessary and the clinically appropriate intervention at this time. We will monitor medications and make changes as indicated. The patient's likely length of stay is 4-6 days. Coding Level of Care Code Acute Code for Chg Fwd Diagnoses Dementia F03.93 Dementia behavioral or psychological symptom: with mood disturbance Dementia severity: unspecified severity Dementia type: unspecified type Psychosis F29 Homicidal ideation R45.850 Cannabis use disorder F12.90
[2024-04-24 13:57] VITALS: BP 110/62; PULSE 87; RESP 16; TEMP 36.9; O2SAT 94
--- NOTE | 2024-04-24 15:16 | PC.NURSE ---
NEW ORDERS RECEIVED FROM DR OLIVER TO GIVE SEROQUEL 50 MG PO AT BEDTIME, MAY REPEAT WITH 50 MG TO EQUAL 100 MG IF THE FIRST DOES IS NOT EFFECTIVE. EDUCATED PT ON NEW ORDERS, PT UNABLE TO UNDERSTAND AT THIS TIME. FAMILY SPOKE WITH [employer] ABOUT DISCHARGE TOMORROW AND FAMILY WAS CONCERNED ABOUT PT NOT BEING ABLE TO SLEEP. DR. OLIVER WANTED NURSE TO TRY THE SEROQUEL TONIGHT AND SEE IF IT WAS MORE EFFECTIVE THAN TRAZODONE AND HALDOL THAT SHE HAS BEEN TAKING. NURSE TO UPDATE DR. OLIVER IN THE AM.
[2024-04-24] MEDS: ondansetron 4 MG Tablet PO (17:11)
[2024-04-24] MEDS: ziprasidone hcl 20 mg Capsule PO (17:11)
[2024-04-24] MEDS: calcium carbonate 500 mg Chew Tablet 1000 MG PO (18:20)
[2024-04-24] MEDS: quetiapine 25 mg Tablet 50 MG PO (20:15)
[2024-04-24] MEDS: memantine 5 mg tablet 10 MG PO (20:16)
[2024-04-24] MEDS: trazodone 50 mg Tablet PO (20:16)
[2024-04-24 20:34] VITALS: RESP 18
--- NOTE | 2024-04-24 20:34 | PC.NURSE ---
patient refused vitals nurse notified.
[2024-04-25 06:00] VITALS: RESP 18
--- NOTE | 2024-04-25 06:29 | PC.NURSE ---
Patient refused vitals nurse notified.
[2024-04-25] MEDS: levothyroxine 125 mcg Tablet PO (07:38)
[2024-04-25] MEDS: paliperidone ER 3 mg Tablet PO (08:50)
[2024-04-25] MEDS: hyDROXYzine 25 mg Capsule 50 MG PO (08:50)
[2024-04-25] MEDS: cholecalciferol (vitamin D3) 1,000 unit Tablet 2000 UNIT PO (08:50)
[2024-04-25] MEDS: thiamine 100 mg Tablet PO (08:50)
[2024-04-25 14:00] VITALS: BP 118/64; PULSE 75; RESP 16; TEMP 36.7; O2SAT 95
--- NOTE | 2024-04-25 16:43 | P.NPUDS_ITS ---
Diagnoses at Discharge Discharge Diagnosis (1) Dementia: Status: Acute Qualifiers: Dementia behavioral or psychological symptom: with mood disturbance Dementia severity: unspecified severity Dementia type: unspecified type Qualified Code(s): F03.93 - Unspecified dementia, unspecified severity, with mood disturbance (2) Psychosis: Status: Acute (3) Homicidal ideation: Status: Acute (4) Cannabis use disorder: Status: Acute Reason for Visit Reason for Visit: 96 Hold Brief History: History of Present Illness Osiris Teran is a 63 year old female who presented to the emergency department with the following report: Chief Complaint: Psychiatric Symptoms Stated Complaint: 96 Hold Time Seen by Provider: 03/28/24 12:00 Source: patient Mode of arrival: EMS Limitations: altered mental status History of Present Illness: Patient is a 63-year-old female presents to ED today on a 96-hour hold. According to [facility] paperwork, she was repeatedly calling 911 soliciting somebody to try to drive her to [place]. When the [employer] department arrived at her house she made comments of wanting to harm herself and her son. She made a comment that she wanted to purchase a gun to shoot her son if he would not take her to [place]. She was also consulted on by our [facility] Crisis Intervention team who recommended mental health evaluation. She reportedly has dementia. She states she wants to get back to [place] as she has a job waiting for her there. She states that she needs a rifle so that when her son picks on her she can just shoot him with it. She reportedly called the [employer] office 42 times stating she would pay $4000 dollars for them to get her a [employer] and transport her to [place]. She had been located in [facility] trying to get a ride from anybody that would take her to [place]. I did reach out to patient's son, Stone ([phone]) who provides further history. He states she has lived in [place] over the past 20 years. He states over the past 5 to 10 years they have noticed significant cognitive decline. They report she was not able to keep a job, had gotten into some drug use, at 1 point got a DUI with cocaine in her system. She started having more erratic behavior coupled with periods of high energy. She started feeling unsatisfied w ith living in [place] and wanted to come back to [place]. Son states they were able to purchase an RV for her and she has been here in [place] since December 2023. Stone is reportedly in the process of trying to obtain guardianship and has an appointment scheduled for 04/26. complaint: altered mental status History of same: Yes Relieving factors: none Exacerbating factors: none Treatments prior to arrival: none She was admitted to the neuropsychiatric unit for definitive treatment of those issues. She presented unknown to [facility] psychiatry through inpatient or outpatient services but is reported to have had significant outpatient and inpatient services and [place] as well as significant drug and alcohol treatment and exposure with reported long history is of methamphetamine and cocaine use. She is a poor and incapable historian as she is only able to identify where she has been and where she lives but all history she gives otherwise is inaccurate and she just continues to perseverate about wanting to leave and getting her stuff. Her son who is in town identifies that she is confused about her situation and wanting someone to take her to [place]. She reportedly called the [employer] office at least 42 times asking for a gun and reporting she was in a used a gun to kill her son if he does not take her to [place]. Stating this the police. She is offering people thousand dollars to drive her back to her place from the hospital that she does not know she is in the hospital. She denied any history of drug use which we know is an accurate and she denied using cannabis Gummies and had no explanation for the 64 mg Gummies and her belongings most of which had been already eaten and about half of the milligrams going towards actual THC. She denied THC use and reports that her son is going to take her to [place] and she needs to just get out of here. This is not the case. We discussed her considering medication. Discussing the risks, benefits and alternatives she did not understand and just continue to perseverate about leaving and whether this senior copywriter can take her home/out of here. Involuntary Hold Information 96 Hour Hold: 96 Hour Involuntary Admission: Yes 96 Hour Hold Ending Date: 04/03/24 96 Hour Hold Ending Time: 12:00 Other Hold: Hold End Date: 04/20/24 Mental Status Exam MSE Comments: This is a well-nourished well-developed white female looking somewhat older than her stated age in hospital scrubs with limited grooming and adequate eye contact. No abnormal movements except for mild psychomotor agitation. She was cooperative with exam in mild to moderate distress. Speech was normal in rate and volume. Mood described as good. Affect: was odd and subdued. Thought process: linear, but superficial. Thought content: Patient denies suicidal or homicidal ideation, there were no delusions reported or noted, she denied auditory or visual hallucinations. Impoverished content as well. She did not appear to be responding to internal stimuli. Attention was variable. Insight, judgment and impulse control are all impaired. Mini-Mental status exam was completed with the patient most recently scoring 16 out of 30. She was alert and oriented to person but not country town location date or season. Discharge Data Studies Completed and Pending: Laboratory Results WBC 5.89 10^3/uL (3.2 9-11.43) 04/03/24 15:04 RBC 4.63 10^6/uL (3.8 5-5.65) 04/03/24 15:04 Hgb 13.10 g/dL (11.27 -16.99) 04/03/24 15:04 Hct 40.8 % (36-47) 04/03/24 15:04 MCV 88.1 fl (85-98) 04/03/24 15:04 MCH 28.3 pg (27-33) 04/03/24 15:04 MCHC 32.1 g/dL (30-55) 04/03/24 15:04 RDW 11.9 % (12.1-15.1 ) L 04/03/24 15:04 Plt Count 266 10^3/cmm (157 -399) 04/03/24 15:04 MPV 9.1 fL (7.4-10.4) 04/03/24 15:04 Neut % (Auto) 52.8 % 04/03/24 15:04 Lymph % (Auto) 35.0 % 04/03/24 15:04 Bell % (Auto) 9.2 % 04/03/24 15:04 Eos % (Auto) 2.0 % 04/03/24 15:04 Baso % (Auto) 0.8 % 04/03/24 15:04 Neut # (Auto) 3.11 10^3/uL (1.8 -7.7) 04/03/24 15:04 Lymph # (Auto) 2.1 10^3/uL (0.8- 4.8) 04/03/24 15:04 Bell # (Auto) 0.5 10^3/uL (0.2- 0.9) 04/03/24 15:04 Eos # (Auto) 0.1 10^3/uL (0.0- 0.8) 04/03/24 15:04 Baso # (Auto) 0.1 10^3/uL (0.0- 0.1) 04/03/24 15:04 Nucleated RBC % (a uto) 0 % 04/03/24 15:04 Nucleated RBCs # 0.0 /100WBC 04/03/24 15:04 Sodium 138 mmol/L (136-1 45) 04/03/24 15:04 Potassium 3.7 mmol/L (3.5-5 .1) 04/03/24 15:04 Chloride 100 mmol/L (98-10 7) 04/03/24 15:04 Carbon Dioxide 27 mmol/L (22-29) 04/03/24 15:04 Anion Gap 14.7 (5-19) 04/03/24 15:04 BUN 17 mg/dL (8-23) 04/03/24 15:04 Creatinine 0.7 mg/dL (0.5-0. 9) 04/03/24 15:04 GFR Calculation 84.0 mL/min (90-1 30) L 04/03/24 15:04 Glucose 106 mg/dL (65-115 ) 04/03/24 15:04 Calculated Osmolal ity 288 mOsm/kg (285- 295) 04/03/24 15:04 Calcium 9.4 mg/dL (8.5-10 .5) 04/03/24 15:04 Total Bilirubin 0.3 mg/dL (0.15-1 .2) 04/03/24 15:04 AST 37 U/L (0-32) H 04/03/24 15:04 ALT 57 U/L (0-33) H 04/03/24 15:04 Alkaline Phosphata se 155 U/L (35-105) H 04/03/24 15:04 Total Protein 7.1 g/dL (6.6-8.7 ) 04/03/24 15:04 Albumin 4.0 g/dL (3.5-5.2 ) 04/03/24 15:04 Globulin 3.1 g/dL (1.3-4.6 ) 04/03/24 15:04 Thiamine 161 nmol/L (78-18 5) 04/03/24 15:04 Vitamin B12 364 pg/mL (232-12 45) 04/13/24 17:44 25-OH Vitamin D To yolanda 30 ng/mL (30-100) 04/13/24 17:44 Folate 16.8 ng/mL (4.8-3 7.3) 04/13/24 17:44 TSH 0.66 uIU/mL (0.27 -4.20) 04/03/24 15:04 Free T4 1.56 ng/dL (0.82- 1.77) 04/03/24 15:04 Urine Color Yellow (Yellow) 04/03/24 14:51 Urine Appearance Clear (CLEAR) 04/03/24 14:51 Urine pH 7.0 (5-7) 04/03/24 14:51 Ur Specific Gravit y 1.013 (1.005-1.0 30) 04/03/24 14:51 Urine Protein Negative (Negati ve) 04/03/24 14:51 Urine Glucose (UA) Negative (Normal ) 04/03/24 14:51 Urine Ketones Negative (Negati ve) 04/03/24 14:51 Urine Blood Negative (Negati ve) 04/03/24 14:51 Urine Nitrate Negative (Negati ve) 04/03/24 14:51 Urine Bilirubin Negative (Negati ve) 04/03/24 14:51 Urine Urobilinogen 0.2 mg/dL (Negati ve) 04/03/24 14:51 Ur Leukocyte Sondra ase 2+ (Negative) A 04/03/24 14:51 Urine RBC 0-2 /hpf (0-2) 04/03/24 14:51 Urine WBC 6-10 /hpf (0-5) 04/03/24 14:51 Ur Squamous Epith Cells 0-5 /hpf (0-5) 04/03/24 14:51 Amorphous Sediment Not Reportable 04/03/24 14:51 Urine Bacteria None seen /hpf (N ONE) 04/03/24 14:51 Hyaline Casts 0.40 /lpf 04/03/24 14:51 Salicylates < 0.3 mg/dL (3-10 ) L 03/28/24 12:30 Urine Opiates Scre en Negative ng/mL (N egative) 04/03/24 14:51 Acetaminophen < 5.0 ug/mL (10-3 0) L 03/28/24 12:30 Ur Barbiturates Sc reen Negative ng/mL (N egative) 04/03/24 14:51 Ur Phencyclidine S crn Negative ng/mL (N egative) 04/03/24 14:51 Ur Amphetamines Sc reen Negative ng/mL (N egative) 04/03/24 14:51 U Benzodiazepines Scrn Positive ng/mL (N egative) H 04/03/24 14:51 Urine Cocaine Scre en Negative ng/mL (N egative) 04/03/24 14:51 U Marijuana (THC) Screen Positive ng/mL (N egative) H 04/03/24 14:51 Ethyl Alcohol < 10 mg/dL (0-10) 03/28/24 12:30 Vitals: Last Vital Signs Temp 98.1 F 04/25/24 14:00 Pulse 75 04/25/24 14:00 Resp 16 04/25/24 14:00 BP 118/64 04/25/24 14:00 Pulse Ox 95 04/25/24 14:00 O2 Del Method Room Air 04/20/24 19:39 Discharge Plan Discharge Patient Disposition: Home Condition: Stable Prescriptions: New cholecalciferol (vitamin D3) 25 mcg (1,000 unit) Tablet 2,000 unit PO DAILY 30 Days Qty: 60 1RF hydroxyzine pamoate 25 mg Capsule 50 mg PO Q6H PRN (Reason: Anxiety) 30 Days Qty: 120 1RF memantine 10 mg tablet 10 mg PO 2100 30 Days Qty: 30 1RF paliperidone [Invega] 6 mg tablet extended release 24 hr 6 mg PO DAILY 30 Days Qty: 30 1RF quetiapine 100 mg tablet 100 mg PO BEDTIME 30 Days Qty: 30 1RF thiamine mononitrate (vit B1) [Vitamin B-1 (mononitrate)] 100 mg Tablet 100 mg PO 0900,2100 30 Days Qty: 60 1RF trazodone 50 mg Tablet 50 mg PO BEDTIME PRN (Reason: Sleep) 30 Days Qty: 30 1RF Continued levothyroxine 125 mcg tablet 125 mcg PO DAILY 30 Days Qty: 30 1RF Discharge Orders: Discharge Order (Routine); Ordered 04/25/24 Ordered By: Chidi Hatch Referrals: [facility] [Outside] - 4-7 days (You will be contacted in the next couple days regarding a follow up. If you have not received a call within four days call and ask for Angelika.) Discharge Diet: Regular Discharge Activity: Resume usual activity Patient Instructions: Opioid Safety Discharge Attestations NPU Time Spent in Discharge Care*: less than 30 min Specific Discharge Activities: Specific discharge activities: educating patient, discussing with oil field caser/social workers/dc planners, documenting/other paperwork and evaluating patient/reviewing data Coding Level of Care Code Acute Code for Chg Fwd Diagnoses Dementia F03.93 Dementia behavioral or psychological symptom: with mood disturbance Dementia severity: unspecified severity Dementia type: unspecified type Psychosis F29 Homicidal ideation R45.850 Cannabis use disorder F12.90
[2024-04-25 16:47] VITALS: BP 118/64; PULSE 75; RESP 16; TEMP 36.7; O2SAT 95
--- NOTE | 2024-04-27 13:28 | DCPLANNER ---
04/27/2024 Reviewed medicare rights with Irene and she had a copy of Medicare rights.
== END 2024-04-25 17:20 | disposition home or self-care (01) | DRG 884 ==
LOC: ER 13:42 → NP 13:43
PROVIDERS: Admitting Provider Psychiatry & Neurology Psychiatry; Emergency Provider Physician Assistant; Visit Provider Psychiatry & Neurology Psychiatry
DX: F03.92 Unspecified dementia, unspecified severity, with psychotic disturbance (principal); R45.850 Homicidal ideations
CPT/HCPCS: 36415; 80053; 80306; 80307; 81001; 82306; 82607; 82746; 84425; 84439; 84443; 85025; 96372; 97150; 97165; 97167; 99285; J1200; J1630; J2060; Q0162; Q0163

== ENCOUNTER 2024-11-03 11:07 | Emergency (ER) | payer MEDICARE, SELFPAY ==
[2024-11-03 11:08] VITALS: BP 161/86; PULSE 118; RESP 16; TEMP 37.1; O2SAT 95
--- NOTE | 2024-11-03 11:11 | CT_ITS ---
WS: [id number] CT HEAD NONCONTRAST HISTORY: Encephalopathy, altered mental status TECHNIQUE: Contiguous axial imaging performed through the brain. Bone and soft tissue windows. Sagittal and coronal reformats reviewed. All CT scans at [facility] use at least one of these dose optimization techniques: automated exposure control; mA and/or kV adjustment per patient size (includes targeted exams where dose is matched to clinical indication); or iterative reconstruction. DLP: 7.74 mGy.cm COMPARISON: None available. No acute intracranial hemorrhage, midline shift or mass effect. Minimal atrophy and small vessel disease. Ventricles: Mild ventriculomegaly. Temporal horns are dilated. Third and fourth ventricles are also dilated. No inferior displacement of the cerebellar tonsils. Paranasal sinuses: As visualized are clear. Mastoid air cells: Well pneumatized. Calvarium and scalp: Skull is intact with no soft tissue edema or swelling. CT/CT head wo con* [id number] IMPRESSION: 1. No acute intracranial hemorrhage or edema. 2. Mild diffuse ventriculomegaly. No obstructive hydrocephalus. Ventriculomega ly is probably on the basis of atrophy.
--- NOTE | 2024-11-03 11:12 | W.ED.AMS ---
HPI - Altered Mental Status General: Chief Complaint: Altered Mental Status Stated Complaint: ams Time Seen by Provider: 11/03/24 11:08 History of Present Illness: 78-year-old female with a history of dementia who [facility] with concerns for altered mental status. They had said she would not speak to them at the jail for the last 24 hours. EMS reports that when they got in the ambulance with her she talk to them and she said she just wanted to go home. Here she does converse and answer questions fairly appropriately. She has no complaints at this time. Related Data Home Medications ?Medication ?Instructions ?Recorded ?Confirmed alprazolam 0.25 mg tablet 0.25 mg PO BID 11/03/24 11/03/24 escitalopram oxalate 10 mg tablet 10 mg PO DAILY 11/03/24 11/03/24 memantine 21 mg capsule 21 mg PO BEDTIME 11/03/24 11/03/24 sprinkle,extended release 24hr multivitamin with minerals 1 tab PO DAILY 11/03/24 11/03/24 paliperidone 6 mg tablet,extended 12 mg PO DAILY 11/03/24 11/03/24 release 24 hr (Invega) quetiapine 50 mg tablet,extended 100 mg PO BEDTIME 11/03/24 11/03/24 release 24 hr Previous Rx's ?Medication ?Instructions ?Recorded levothyroxine 125 mcg tablet 125 mcg PO DAILY 30 days #30 tabs 04/25/24 trazodone 50 mg tablet 50 mg PO BEDTIME PRN Sleep 30 days 04/25/24 #30 tabs Allergies Allergy/AdvReac Type Severity Reaction Status Date / Time No Known Allergies Allergy Verified 03/28/24 17:46 Review of Systems Narrative: Constitutional symptoms: Negative except as documented in HPI. Skin symptoms: Negative except as documented in HPI. Eye symptoms: Negative except as documented in HPI. ENMT symptoms: Negative except as documented in HPI. Respiratory symptoms: Negative except as documented in HPI. Cardiovascular symptoms: Negative except as documented in HPI. Gastrointestinal symptoms: Negative except as documented in HPI. Genitourinary symptoms: Negative except as documented in HPI. Musculoskeletal symptoms: Negative except as documented in HPI. Neurologic symptoms: Negative except as documented in HPI. Psychiatric symptoms: Negative except as documented in HPI. Endocrine symptoms: Negative except as documented in HPI. PFS ED PFSH: Medical History (Updated 11/03/24 @ 12:41 by Brooke Martinez MD) Psychiatric care Physical Exam Narrative: General: Alert, no acute distress. Skin: Warm, dry. Head: Normocephalic, atraumatic. Neck: Supple, trachea midline. Eye: Extraocular movements are intact. Ears, nose, mouth and throat: mucosa moist. Cardiovascular: Regular, Normal peripheral perfusion. Respiratory: Lungs are clear to auscultation, respirations are non-labored, breath sounds are equal, Symmetrical chest wall expansion. Gastrointestinal: Soft, Nontender, Non distended Musculoskeletal: Normal ROM, no deformity. Neurological: Alert, pleasantly confused, no focal neurological deficit observed. Psychiatric: Cooperative, appropriate mood & affect. Course Vital Signs: Vital signs: Vital Signs Temperature 98.8 F 11/03/24 11:08 Pulse Rate 118 H 11/03/24 11:08 Respiratory Rate 16 11/03/24 11:08 Blood Pressure 161/86 11/03/24 11:08 Pulse Oximetry 95 11/03/24 11:08 MDM - Altered Mental Status Medical Decision Making Medical decision making: Differential diagnosis including but not limited to and based on the above HPI, review of systems and physical exam: In this patient with altered mental status: Stroke. Hypoglycemia. Metabolic encephalopathy. Infections such as pneumonia, urinary tract infection, Covid-19, Influenza. Electrolyte abnormalities such as hypernatremia. Renal failure / uremia. Hepatic encephalopathy. Hypoxemia. Hypercapnic respiratory failure. Psychosis. Drug or alcohol intoxication. Medication overdose. Orders placed to evaluate differential diagnosis based on the above differential, HPI and physical exam CT head: Senescent changes. No acute intracranial process. no intracranial hemorrhage, no evidence of infarct. no evidence of acute fracture.This was reviewed and interpreted by myself the ER physician. Lab Review: Laboratory results were reviewed and interpreted by myself the emergency room physician. No leukocytosis. No anemia. No renal failure. Urinalysis is negative for infection. I reviewed the patient's medical record. Reexamination: Patient remained stable. No increased work of breathing. No altered mental status. No focal motor deficits. Assessment and plan: Dementia Behavioral disturbance - Discharged home - Discussed plan with patient. Answered any questions. - Evaluation and treatment of this problem were appropriate in the emergency setting. Lab Data 11/03/24 12:06 11/03/24 12:[address] 11/03/24 11:11 IMPRESSION: 1. No acute intracranial hemorrhage or edema. 2. Mild diffuse ventriculomegaly. No obstructive hydrocephalus. Ventriculomegaly is probably on the basis of atrophy. Laboratory Results WBC 9.97 10^3/uL (3.29-11.43) 11/03/24 12:06 RBC 4.63 10^6/uL (3.85-5.65) 11/03/24 12:06 Hgb 13.40 g/dL (11.27-16.99) 11/03/24 12:06 Hct 40.7 % (36-47) 11/03/24 12:06 MCV 87.9 fl (85-98) 11/03/24 12:06 MCH 28.9 pg (27-33) 11/03/24 12:06 MCHC 32.9 g/dL (30-55) 11/03/24 12:06 RDW 12.3 % (12.1-15.1) 11/03/24 12:06 Plt Count 292 10^3/cmm (157-399) 11/03/24 12:06 MPV 8.7 fL (7.4-10.4) 11/03/24 12:06 Neut % (Auto) 82.5 % 11/03/24 12:06 Lymph % (Auto) 9.5 % 11/03/24 12:06 Starke % (Auto) 7.5 % 11/03/24 12:06 Eos % (Auto) 0.0 % 11/03/24 12:06 Baso % (Auto) 0.2 % 11/03/24 12:06 Neut # (Auto) 8.22 10^3/uL (1.8-7.7) H 11/03/24 12:06 Lymph # (Auto) 1.0 10^3/uL (0.8-4.8) 11/03/24 12:06 Starke # (Auto) 0.8 10^3/uL (0.2-0.9) 11/03/24 12:06 Eos # (Auto) 0.0 10^3/uL (0.0-0.8) 11/03/24 12:06 Baso # (Auto) 0.0 10^3/uL (0.0-0.1) 11/03/24 12:06 Nucleated RBC % (auto) 0 % 11/03/24 12:06 Nucleated RBCs # 0.0 /100WBC 11/03/24 12:06 Sodium 141 mmol/L (136-145) 11/03/24 12:06 Potassium 3.6 mmol/L (3.5-5.1) 11/03/24 12:06 Chloride 102 mmol/L (98-107) 11/03/24 12:06 Carbon Dioxide 22 mmol/L (22-29) 11/03/24 12:06 Anion Gap 20.6 (5-19) H 11/03/24 12:06 BUN 22 mg/dL (8-23) 11/03/24 12:06 Creatinine 0.8 mg/dL (0.5-0.9) 11/03/24 12:06 GFR Calculation 72.0 mL/min (90-130) L 11/03/24 12:06 Glucose 109 mg/dL (65-115) 11/03/24 12:06 Calculated Osmolality 296 mOsm/kg (285-295) H 11/03/24 12:06 Lactic Acid 1.6 mmol/L (0.5-2.2) 11/03/24 12:06 Calcium 9.4 mg/dL (8.5-10.5) 11/03/24 12:06 Total Bilirubin 0.5 mg/dL (0.15-1.2) 11/03/24 12:06 AST 92 U/L (0-32) H 11/03/24 12:06 ALT 42 U/L (0-33) H 11/03/24 12:06 Alkaline Phosphatase 76 U/L (35-105) 11/03/24 12:06 Total Protein 7.1 g/dL (6.6-8.7) 11/03/24 12:06 Albumin 3.6 g/dL (3.5-5.2) 11/03/24 12:06 Globulin 3.5 g/dL (1.3-4.6) 11/03/24 12:06 Urine Color Yellow (Yellow) 11/03/24 11:50 Urine Appearance Clear (CLEAR) 11/03/24 11:50 Urine pH 6.0 (5-7) 11/03/24 11:50 Ur Specific [place] 1.018 (1.005-1.030) 11/03/24 11:50 Urine Protein Trace (Negative) A 11/03/24 11:50 Urine Glucose (UA) Negative (Normal) 11/03/24 11:50 Urine Ketones 1+ (Negative) H 11/03/24 11:50 Urine Blood Negative (Negative) 11/03/24 11:50 Urine Nitrate Negative (Negative) 11/03/24 11:50 Urine Bilirubin Negative (Negative) 11/03/24 11:50 Urine Urobilinogen 1.0 mg/dL (Negative) 11/03/24 11:50 Ur Leukocyte Esterase Negative (Negative) 11/03/24 11:50 Urine RBC 0-2 /hpf (0-2) 11/03/24 11:50 Urine WBC 0-5 /hpf (0-5) 11/03/24 11:50 Ur Squamous Epith Cells 0-5 /hpf (0-5) 11/03/24 11:50 Calcium Oxalate Crystal 0-4 /hpf H 11/03/24 11:50 Amorphous Sediment Not Reportable 11/03/24 11:50 Urine Bacteria None seen /hpf (NONE) 11/03/24 11:50 Hyaline Casts 55.41 /lpf 11/03/24 11:50 All radiology interpretation(s) finalized by discharge Discharge Plan Discharge Patient Disposition: Home Clinical Impression: 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 Dementia Qualifiers: Dementia type: unspecified type Dementia severity: unspecified severity Dementia behavioral or psychological symptom: with mood disturbance Qualified Code(s): F03.93 - Unspecified dementia, unspecified severity, with mood disturbance Condition: Stable Prescriptions: No Action alprazolam 0.25 mg tablet 0.25 mg PO BID multivitamin with minerals Tablet 1 tab PO DAILY escitalopram oxalate 10 mg tablet 10 mg PO DAILY quetiapine 50 mg tablet extended release 24 hr 100 mg PO BEDTIME memantine 21 mg capsule,sprinkle,ER 24hr 21 mg PO BEDTIME paliperidone [Invega] 6 mg tablet extended release 24hr 12 mg PO DAILY trazodone 50 mg Tablet 50 mg PO BEDTIME PRN (Reason: Sleep) 30 Days Qty: 30 1RF levothyroxine 125 mcg tablet 125 mcg PO DAILY 30 Days Qty: 30 1RF Discharge Orders: Discharge ED (Routine); Ordered 11/03/24 Ordered By: Brooke Martinez Discharge Diet: Usual diet Discharge Activity: Increase activity as tolerated Patient Instructions: Dementia (ED), Opioid Safety, Pain Management, Patient Portal & Emmanuel Instructions Activity Restrictions/Additional Instructions: Thank you for choosing [facility] for your healthcare needs today. You have been screened and evaluated and felt safe for discharge. Health conditions do change or evolve sometimes and as such it is important that you follow up with your Primary Doctor to be re checked, 3-5 days is a general good time frame for follow up. You are always welcome to return to the ED for re assessment if your symptoms are worsening or you have new concerns Print Language: Anguillan Coding Level of Care Code ED Bus Attendant for Rebekah Espinosa
[2024-11-03 11:58] LABS: Glucose Urine UA Negative (Normal); Nitrate Urine Negative (Negative); Specific Gravity, Urine 1.018 (1.005-1.030)
[2024-11-03 12:13] LABS: UA Slide Review UA Slide Review Perf
[2024-11-03 12:31] LABS: Hematocrit 40.7 % (36-47); Hemoglobin 13.40 g/dL (11.27-16.99); Mean Corpuscular HGB Conc 32.9 g/dL (30-55); Mean Corpuscular Hemoglobin 28.9 pg (27-33); Mean Corpuscular Volume 87.9 fl (85-98); Nucleated Red Blood Cells % 0 %; Platelet Count 292 10^3/cmm (157-399); Red Blood Count 4.63 10^6/uL (3.85-5.65); White Blood Count 9.97 10^3/uL (3.29-11.43)
[2024-11-03 12:45] LABS: Alanine Aminotransferase 42 U/L (0-33); Albumin Level 3.6 g/dL (3.5-5.2); Alkaline Phosphatase 76 U/L (35-105); Anion Gap 20.6 (5-19); Aspartate Amino Transferase 92 U/L (0-32); Blood Urea Nitrogen 22 mg/dL (8-23); Calcium 9.4 mg/dL (8.5-10.5); Carbon Dioxide 22 mmol/L (22-29); Chloride 102 mmol/L (98-107); Globulin 3.5 g/dL (1.3-4.6); Glucose 109 mg/dL (65-115); Osmolality Calculated 296 mOsm/kg (285-295); Potassium 3.6 mmol/L (3.5-5.1); Sodium 141 mmol/L (136-145); Total Protein 7.1 g/dL (6.6-8.7)
[2024-11-03 12:49] LABS: Lactic Sepsis W/Reflex 1.6 mmol/L (0.5-2.2)
[2024-11-03 15:19] VITALS: BP 143/73; PULSE 63; O2SAT 96
== END 2024-11-03 15:24 | disposition home or self-care (01) ==
PROVIDERS: Emergency Provider Emergency Medicine
DX: G30.9 Alzheimer's disease, unspecified (principal); F02.818 Dementia in other diseases classified elsewhere, unspecified severity, with other behavioral disturbance; F91.8 Other conduct disorders
CPT/HCPCS: 36415; 70450; 80053; 81001; 83605; 85025; 87040; 99284

== ENCOUNTER 2025-01-28 08:43 | Inpatient (IN) | payer MEDICARE, MEDICAID, SELFPAY ==
--- OUTSIDE RECORDS SUMMARY | 2010-11-28 07:50 | XMS_ITS | Continuity of Care Document ---
Author Organization [facility] Address [address] [place] [address] Phone Care Team Providers Care Yard Assistant Name Role Phone Unavailable Unavailable Unavailable Medications Medication Instructions Dosage Effective Dates (start - stop) Status Comments Medrol (Harirson) 4 mg Tabs in a Dose Pack Dosepack a directed - Active CYCLOBENZAPRINE HCL 10 MG ORAL TABLET 1 PO TID PRN spasm/discomfort - Active HYDROCODONE BIT/ACETAMINOPHEN 5MG-325MG ORAL TABLET 1-2 q 4-6 h prn pain - Active IBUPROFEN 800 MG ORAL TABLET Take 1 po Tid - Active provastatin - Active Levoxyl 25 mcg Tab take 1 tablet (25MCG ) by oral route every day 25 MCG - Active Procedures Procedure Date Offic/outpt E&m [facility] Services provided in an urgent care [facility] Advance Directives Directive Yes / No Effective Date File Name No Information Encounters Encounter Description Practice Location Reason(s) For Visit Diagnoses Date Provider Providers Copied on Encounter Offic/outpt E&m [facility], [address], [place], [place], [id number] , [place] tel:[phone] [facility] muscle aches (chief complaint) CervicalgiaCervica lgiaSpasm Of MuscleSpasm Of MuscleBackache NosBackache Nos 1 No Information Family History Family Member Type Diagnosis Age At Onset No Information Payers Payer name Insurance type Covered alliance party ID Authoriza tijustine(s) [employer] [place] [id number] Social History Type Description Quantity Date Captured Comments Alcohol Use Details No Caffeine Use Details Unknown Tobacco Use Status No Information Smoking Status No Information Sex Female Vital Signs Date / Time: Height Weight BMI Pulse Rate Blood Pressure Temperature Respiratory Rate Body Surface Area Head Circumference Head Circ. Percentile Wt./Edd. Percentile BMI percentile Pulse Ox Inhaled Ox 2:01 PM 77 /min 128/72 mm[Hg] 98.60 F 16 /min 97 % Chief Complaint And Reason For Visit From encounter dated '11/28/2010 13:50'. muscle aches (chief complaint). Description: Onset: 3 Day(s) ago. Severity level is moderate-severe. Duration Constant. There was no radiation. Location was thoracic, cervical, left Paravertebral, The patient describes it as Ache; Discomforting; Dull; It occurs occasionallly. The problem is stable.Context: carried a heavy pack hiking; Symptom is aggravated by -Bending -turning head. Causes of relief are unknown. She is also experiencing -Decrease mobility - Spasms -Tenderness. Pertinent negatives include -no abdominal pain -no fever -no diarrhea -no disequilibrium -dyspareunia -no incontinence (Fecal) -no incontinence (Urine) -no numbness -no other joint pain -no rash -no Additional information: Admits pain in R lateral neck and in R mid back. Denies numbness, tinglin, weakness, any trauma, any other complaints. Reason For Referral Reason For Referral No Information History Of Present Illness Encounter Date Complaint History Of Prese nt Illness No Information Functional Status Date Functional Assessmen t No Information Instructions Date Instruction Additional Infor mation No Information Assessments Type Assessment Date No Information Patient Care Teams Name Effective Dates (start - stop) Status Members No Information
--- OUTSIDE RECORDS SUMMARY | 2023-08-12 07:01 | XMS_ITS | Continuity of Care Document ---
Author Organization [facility] Address [address] [place] [address] Phone Care Team Providers Care Machine Bunch Maker Name Role Phone Segundo Anderson Unavailable Unavaila ble Allergies, Adverse Reactions, Alerts Substance Reaction Status Criticality No Known Allergies Active No Inform ation Medications Medication Instructions Dosage Effective Dates (start - stop) Status Comments risperidone 1 mg tablet take 1 tablet by oral route every bedtime - No Longer Active memantine 10 mg tablet take 1 tablet by oral route every day 10 MG - No Longer Active [facility] OBS Vitamin D3 50 mcg (2,000 unit) capsule take 1 oral capsule every morning - No Longer Active vitamin A 3,000 mcg (10,000 unit) capsule take 1 capsule by oral route every day 16841 UNITS - No Longer Active vitamin E 268 mg (400 unit) capsule take 1 oral capsule every morning - No Longer Active hydroxyzine pamoate 50 mg capsule Hydroxyzine 50mg PO Q4 hrs PRN anxiety as needed for Anxiety - No Longer Active Milk of Magnesia 400 mg/5 mL oral suspension Milk of Magenesia 30 cc PO Q 6 hrs PRN as needed for Constipation - No Longer Active Antacid Regular Strength 200 mg-200 mg-20 mg/5 mL oral suspension Mylanta 5ml PO q 4 hrs PRN as needed for Dyspepsia - No Longer Active ibuprofen 600 mg tablet ibuprofen 600mg PO Q 6 hrs PRN fever>100.4/pain as needed for Pain and/or Fever - No Longer Active trazodone 50 mg tablet trazodone 50mg PO Q HS PRN may repeat x1 in 1 hour as needed for Insomnia - No Longer Active promethazine 25 mg tablet Promethazine 25mg PO Q 4 hrs PRN for nausea and/or vomiting as needed for Nausea and Vomiting - No Longer Active ondansetron 4 mg disintegrating tablet Ondansetron ODT 4mg SL q 4hrs PRN for nausea and/or vomiting as needed for Nausea and Vomiting - No Longer Active Procedures Procedure Date Non-billable Service EST PT 25 MIN DENIS Non-billable Service Non-billable Service Non-billable Service EST PT 10 MIN EST PT 15 MIN Non-billable Service Non-billable Service EST PT 25 MIN Non-billable Service Non-billable Service EST PT 25 MIN [facility] Non-billable Service BEHAVIORAL HEALTH SCREENING Non-billable Service EST PT 25 MIN DENIS Non-billable Service Non-billable Service Non-billable Service PSYCHIATRIC DIAGNOSTIC EVALUATION WITH M EDICAL SER Non-billable Service BEHAVIORAL HEALTH SCREENING Non-billable Service Advance Directives Directive Yes / No Effective Date File Name No Information Encounters Encounter Description Practice Location Reason(s) For Visit Diagnoses Date Provider Providers Copied on Encounter activ8 Intelligence [facility], [address], [place], [place], [id number], [place] tel:[phone] [facility] 23 Hour No Information 4 Feng [facility] Segundo. [address] [facility], [place], [place], [id number], [place]. tel:[phone] [employer], [address], [place], [place], [address], [place] tel:[phone] [facility] 23 Hour Major depressive disorder, recurrent, severe with psychotic symptoms 4 No Information [employer], [address], [place], [place], [address], [place] tel:[phone] [facility] 23 Hour DENIS Murchison Major depressive disorder, recurrent, severe with psychotic symptoms 4 Terrence Pizano. [address] [facility], [place], [place], [id number], [place]. tel:[phone] [employer], [address], [place], [place], [address], [place] tel:[phone] [facility] 23 Hour DENIS Murchison Major depressive disorder, recurrent, severe with psychotic symptoms 4 Lee. ALBERTS Celso Kate. [address] [facility], [place], [place], [address], [place]. tel:[phone] [employer], [address], [place], [place], [address], [place] tel:[phone] [facility] 23 Hour DENIS Murchison Major depressive disorder, recurrent, severe with psychotic symptoms 4 Germán Alicea. [address] [facility], [place], [place], [address], [place]. tel:[phone] [employer], [address], [place], [place], [address], [place] tel:[phone] [facility] 23 Hour DENIS Murchison Major depressive disorder, recurrent, severe with psychotic symptoms 4 Warren Arredondo. [address] [facility], [place], [place], [address], [place]. tel:[phone] [employer], [address], [place], [place], [address], [place] tel:[phone] [facility] 23 Hour DENIS Murchison Major depressive disorder, recurrent, severe with psychotic symptoms 4 Shomate PMHNP Bib. [address] [facility], [place], [place], [address], [place]. tel:[phone] [employer], [address], [place], [place], [address], [place] tel:[phone] [facility] 23 Hour DENIS Murchison Major depressive disorder, recurrent, severe with psychotic symptoms 4 Salami PMP Sadiku. [address] [facility], [place], [place], [address], [place]. tel:[phone] [employer], [address], [place], [place], [address], [place] tel:[phone] [facility] 23 Hour DENIS Murchison Major depressive disorder, recurrent, severe with psychotic symptoms 4 Germán ALBERTS T Deanne. [address] [facility], [place], [place], [address], [place]. tel:[phone] [employer], [address], [place], [place], [address], [place] tel:[phone] [facility] 23 Hour DENIS Murchison Major depressive disorder, recurrent, severe with psychotic symptoms 4 Aria ALBERTS Celso Reynoso. [address] [facility], [place], [place], [address], [place]. tel:[phone] [employer], [address], [place], [place], [address], [place] tel:[phone] [facility] 23 Hour DENIS Murchison Major depressive disorder, recurrent, severe with psychotic symptomsMild neurocognitive disorder due to known physiological condition with behavioral disturbanceInsomn ia due to other mental disorderPersonal history of suicidal behavior 4 Tyler PMHNP Alize. [address] [facility], [place], [place], [address], [place]. tel:[phone] [employer], [address], [place], [place], [address], [place] tel:[phone] [facility] 23 Hour Major depressive disorder, recurrent, severe with psychotic symptoms 0 4 Aria ALBERTS [facility] Edgardo. [address] [place] [address], [id number], [place]. tel:[phone] [employer], [address], [place], [place], [address], [place] tel:[phone] [facility] 23 Hour Major depressive disorder, recurrent, severe with psychotic symptoms 0 4 Cody ALBERTS [facility] Janice. [address] [place] [address], [place], [place], [address], [place]. tel:[phone] [facility], [address], [place], [place], [address], [place] tel:[phone] [facility] 23 Hour Major depressive disorder, Recurrent episode, With psychotic featuresMild neurocognitive disorder due to known physiological condition with behavioral disturbanceInsomn ia due to other mental disorderPersonal history of suicidal behavior 0 4 Nicolas CLARKHNP Sally. [address] [facility], [place], [place], [address], [place]. tel:[phone] [facility], [address], [place], [place], [address], [place] tel:[phone] [facility] 23 Hour No Information 0 4 Hermiol ALBERTS T Tr. [address] [facility], [place], [place], [address], [place]. tel:[phone] [facility], [address], [place], [place], [address], [place] tel:[phone] [facility] 23 Hour No Information 0 4 Norberto FALCON [facility] Lalitha. [address], [address], [place]. tel:[phone] [employer], [address], [place], [place], [address], [place] tel:[phone] [facility] 23 Hour DENIS Murchison No Information 4 Yoko PMP Maisha. [address], [place], [place], [address], [place]. tel:[phone] [employer], [address], [place], [place], [address], [place] tel:[phone] [facility] 23 Hour No Information 4 Coutrney ALBERTS [facility] Taylor. [address], [place], [place], [address], [place]. tel:[phone] [employer], [address], [place], [place], [address], [place] tel:[phone] [facility] 23 Hour No Information 4 Colleen ALBERTS [facility] Mayur. [address], [place], [place], [address], [place]. tel:[phone] [employer], [address], [place], [place], [address], [place] tel:[phone] [facility] 23 Hour No Information 4 Aria ALBERTS [facility] Edgardo. [address], [place], [place], [address], [place]. tel:[phone] [employer], [address], [place], [place], [address], [place] tel:[phone] [facility] 23 Hour No Information 4 Terrence [facility] Harinder. [address], [place], [place], [address], [place]. tel:[phone] [employer], [address], [place], [place], [address], [place] tel:[phone] [facility] 23 Hour No Information 4 Alicia ALBERTS [facility] Azra. [address], [place], [place], [address], [place]. tel:[phone] [employer], [address], [place], [place], [address], [place] tel:[phone] [facility] 23 Hour No Information 4 Leslie CHAR Ribera. [address], [place], [place], [address], [place]. tel:[phone] Family History Family Member Type Diagnosis Age At Onset No Information Payers Payer name Insurance type Covered democrat ID Addy ellis(s) [facility] [employer] CI [id number] Social History Type Description Quantity Date Captured Comments Sex Female Smoking Status No Information Chief Complaint And Reason For Visit No Information Reason For Referral Reason For Referral No [...]
[2025-01-28] VITALS (21 sets, daily range): BP systolic 97–169; BP diastolic 56–85; PULSE 61–120; RESP 12–21; TEMP 36.1–36.9; O2SAT 89–100; BMI 25.2
--- NOTE | 2025-01-28 08:43 | XRR_ITS ---
PROCEDURE INFORMATION: Exam: XR Left Hip Exam date and time: 01/28/2025 8:46 AM Age: 64 years old Clinical indication: Injury or trauma; Fall; Blunt trauma (contusions or hematomas); Left; Hip TECHNIQUE: Imaging protocol: Radiologic exam of the left hip. Views: 2 or 3 views hip with pelvis when performed. COMPARISON: No relevant prior studies available. FINDINGS: Bones/joints: Acute mildly displaced subcapital LEFT femoral neck fracture. No dislocation. Soft tissues: Unremarkable. XR/XR hip LT 2-3V wo/w pel* [id number] IMPRESSION: Acute mildly displaced subcapital LEFT femoral neck fracture
--- NOTE | 2025-01-28 08:43 | XRR_ITS ---
PROCEDURE INFORMATION: Exam: XR Chest Exam date and time: 01/28/2025 8:46 AM Age: 64 years old Clinical indication: Injury or trauma; Fall; Blunt trauma (contusions or hematomas) TECHNIQUE: Imaging protocol: Radiologic exam of the chest. Views: 1 view. COMPARISON: No relevant prior studies available. FINDINGS: Lungs: Unremarkable. No consolidation. Pleural spaces: Unremarkable. No pleural effusion. No pneumothorax. Heart/Mediastinum: Unremarkable. No cardiomegaly. Bones/joints: Unremarkable. XR/XR chest 1V portable [id number] IMPRESSION: No acute findings.
--- NOTE | 2025-01-28 08:46 | XRR_ITS ---
PROCEDURE INFORMATION: Exam: XR Left Ankle Exam date and time: 01/28/2025 8:46 AM Age: 64 years old Clinical indication: Injury or trauma; Fall; Blunt trauma; Ankle; Left TECHNIQUE: Imaging protocol: Radiologic exam of the left ankle. Views: 3 or more views. COMPARISON: No relevant prior studies available. FINDINGS: Bones/joints: Normal. Soft tissues: Normal. XR/XR ankle LT min 3V* [id number] IMPRESSION: No acute findings.
--- NOTE | 2025-01-28 08:46 | W.ED.FALL ---
HPI - Fall General: Chief Complaint: Extremity Injury, Lower Stated Complaint: left hip pain s/p fall Time Seen by Provider: 01/28/25 08:43 Source: EMS Mode of arrival: EMS Limitations: altered mental status History of Present Illness: 64-year-old female history of dementia from assisted. Patient had a fall 2 days ago complaining of left hip pain. Patient did receive fentanyl and route. Denies any head injury denies any loss of consciousness. Related Data Home Medications ?Medication ?Instructions ?Recorded ?Confirmed escitalopram oxalate 10 mg tablet 10 mg PO DAILY 11/03/24 01/28/25 memantine 21 mg capsule 21 mg PO BEDTIME 11/03/24 01/28/25 sprinkle,extended release 24hr multivitamin with minerals 1 tab PO DAILY 11/03/24 01/28/25 paliperidone 6 mg tablet,extended 12 mg PO DAILY 11/03/24 01/28/25 release 24 hr (Invega) quetiapine 50 mg tablet,extended 50 mg PO BEDTIME 11/03/24 01/28/25 release 24 hr acetaminophen 500 mg tablet 1,000 mg PO Q6H PRN pain/fever 01/28/25 01/28/25 levothyroxine 125 mcg tablet 125 mcg PO QAM 01/28/25 01/28/25 Previous Rx's ?Medication ?Instructions ?Recorded trazodone 50 mg tablet 50 mg PO BEDTIME PRN Sleep 30 days 04/25/24 #30 tabs Allergies Allergy/AdvReac Type Severity Reaction Status Date / Time No Known Allergies Allergy Verified 03/28/24 17:46 [facility]: Medical History (Updated 01/28/25 @ 09:10 by Kavya Medina MD) Psychiatric care Physical Exam Const: COMMON NORMALS: negative for patient oriented x3 HENMT: COMMON NORMALS: normocephalic and atraumatic HEAD & SCALP: normocephalic and atraumatic Eye: COMMON NORMALS: Equal, round and reactive pupils present and EOMs intact bilaterally PUPIL: Yes Equal, round and reactive pupils present Neck/C-Spine: COMMON NORMALS: full ROM and supple Chest: COMMONS NORMALS: normal inspection of the chest and normal palpation of entire chest wall Resp: COMMON NORMALS: normal respiratory effort, No retractions, No use of accessory muscles and clear to auscultation bilaterally AUSCULTATION: clear to auscultation bilaterally Cardio: COMMON NORMALS: regular rate, regular rhythm and No murmurs present (Cardio) RATE: regular rate RHYTHM: regular rhythm GI: COMMON NORMALS: Normal to inspection, nondistended, normoactive bowel sounds present, Soft to palpation, non-tender and no masses PALPATION: Yes Soft to palpation Extremity: NARRATIVE EXTREMITY EXAM: Tenderness to left hip and ankle Neuro: COMMON NORMALS: moves all extremities and no focal motor deficits; negative for patient oriented x3 Psych: COMMON NORMALS: mental status grossly normal, Normal thought process present and cooperative THOUGHT PROCESS: Normal thought process present Skin: COMMON NORMALS: no rashes or lesions noted and no wounds GENERAL SKIN EXAM: no rashes or lesions noted Course Vital Signs: Vital signs: Vital Signs Temperature 98.1 F 01/28/25 08:43 Pulse Rate 120 H 01/28/25 08:43 Respiratory Rate 20 H 01/28/25 08:43 Blood Pressure 151/77 01/28/25 08:43 Pulse Oximetry 94 01/28/25 08:43 Oxygen Delivery Me thod Room Air 01/28/25 08:43 MDM - Fall Medical Decision Making Patient presents here with after a fall she has left hip fracture interpreted by me under hip x-ray. She has no signs of any other injuries here EKG shows sinus tach heart rate [address] elevation QRS 100 QTc 411. Lab work shows no critical abnormalities have spoke to hospitalist along with orthopedist and will admit at this time Medical Records I reviewed the patient's medical records. Lab Data I reviewed the patient's lab results. 01/28/25 09:18 01/28/25 09:18 Radiology Impressions Chest X-Ray 01/28/25 08:43 IMPRESSION: No acute findings. Hip/Pelvis X-Ray 01/28/25 08:43 IMPRESSION: Acute mildly displaced subcapital LEFT femoral neck fracture Ankle X-Ray 01/28/25 08:46 IMPRESSION: No acute findings. Laboratory Results WBC 8.25 10^3/uL (3.29-11.43) 01/28/25 09:18 RBC 4.57 10^6/uL (3.85-5.65) 01/28/25 09:18 Hgb 12.60 g/dL (11.27-16.99) 01/28/25 09:18 Hct 38.6 % (36-47) 01/28/25 09:18 MCV 84.5 fl (85-98) L 01/28/25 09:18 MCH 27.6 pg (27-33) 01/28/25 09:18 MCHC 32.6 g/dL (30-55) 01/28/25 09:18 RDW 13.3 % (12.1-15.1) 01/28/25 09:18 Plt Count 332 10^3/cmm (157-399) 01/28/25 09:18 MPV 8.4 fL (7.4-10.4) 01/28/25 09:18 Neut % (Auto) 78.4 % 01/28/25 09:18 Lymph % (Auto) 10.8 % 01/28/25 09:18 Boundary % (Auto) 9.3 % 01/28/25 09:18 Eos % (Auto) 0.5 % 01/28/25 09:18 Baso % (Auto) 0.6 % 01/28/25 09:18 Neut # (Auto) 6.47 10^3/uL (1.8-7.7) 01/28/25 09:18 Lymph # (Auto) 0.9 10^3/uL (0.8-4.8) 01/28/25 09:18 Boundary # (Auto) 0.8 10^3/uL (0.2-0.9) 01/28/25 09:18 Eos # (Auto) 0.0 10^3/uL (0.0-0.8) 01/28/25 09:18 Baso # (Auto) 0.1 10^3/uL (0.0-0.1) 01/28/25 09:18 Nucleated RBC % (auto) 0 % 01/28/25 09:18 Nucleated RBCs # 0.0 /100WBC 01/28/25 09:18 Sodium 136 mmol/L (136-145) 01/28/25 09:18 Potassium 3.7 mmol/L (3.5-5.1) 01/28/25 09:18 Chloride 98 mmol/L (98-107) 01/28/25 09:18 Carbon Dioxide 23 mmol/L (22-29) 01/28/25 09:18 Anion Gap 18.7 (5-19) 01/28/25 09:18 BUN 12 mg/dL (8-23) 01/28/25 09:18 Creatinine 0.5 mg/dL (0.5-0.9) 01/28/25 09:18 GFR Calculation 123.8 mL/min (90-130) 01/28/25 09:18 Glucose 113 mg/dL (65-115) 01/28/25 09:18 Calculated Osmolality 283 mOsm/kg (285-295) L 01/28/25 09:18 Calcium 8.9 mg/dL (8.5-10.5) 01/28/25 09:18 Total Bilirubin 0.4 mg/dL (0.15-1.2) 01/28/25 09:18 AST 17 U/L (0-32) 01/28/25 09:18 ALT 16 U/L (0-33) 01/28/25 09:18 Alkaline Phosphatase 98 U/L (35-105) 01/28/25 09:18 Total Protein 6.5 g/dL (6.6-8.7) L 01/28/25 09:18 Albumin 3.4 g/dL (3.5-5.2) L 01/28/25 09:18 Globulin 3.1 g/dL (1.3-4.6) 01/28/25 09:18 All radiology interpretation(s) finalized by discharge EKG Data EKG 1: I personally reviewed and interpreted this EKG as follows: EKG interpretation date: 01/28/25 EKG interpretation time: 09:19 Interpretation: sinus tach hr [address] elevation qrs 100 qtc 411 Discharge Plan Discharge Patient Disposition: Admitted As Inpatient Clinical Impression: Closed fracture of left hip Qualifiers: Encounter type: initial encounter Qualified Code(s): S72.002A - Fracture of unspecified part of neck of left femur, initial encounter for closed fracture Condition: Stable Coding Level of Care Code ED Har[employer] Cutter for Rebekah Espinosa
--- NOTE | 2025-01-28 09:02 | ECG_ITS ---
[facility] Date: 2025-01-28 Pat Name: Osiris Teran Department: Room: Gender: Female Contract Agent: : [id number] Requested By: Kavya Medina Order Number: [id number] Randy MD: Edgardo Toledo M.D. Measurements Intervals [place] Rate: 114 P: 68 FL: 147 QRS: 262 QRSD: 100 T: 62 QT: 343 QTc: 473 Interpretive Statements SINUS TACHYCARDIA POSSIBLE LEFT ATRIAL ENLARGEMENT [-0.1mV P-WAVE IN V1/V2] INCOMPLETE RIGHT BUNDLE BRANCH BLOCK [90+ ms QRS DURATION, TERMINAL R IN V1/V2, 40+ ms S IN I/aVL/V4/V5/V6] No previous ECG available for comparison Electronically Signed On 01-28-2025 11:34:28 ROLL CUTTER by Edgardo Toledo M.D. [email or web address]
--- NOTE | 2025-01-28 09:07 | PC.PHAR ---
Addendum entered by Therese Clarke 01/28/25 09:14: Alprazolam 0.25mg bid dc'd 01/05/25 and Quetiapine 50mg reduced from 2qhs to 1qhs 01/05/25. Original Note: Pt is from [facility]
--- NOTE | 2025-01-28 09:18 | PC.NURSE ---
[employer] in room with patient and reports that while she was getting set up for xray, pt has pulled her IV line from the left hand. Gauze and coban to site. Pt has also removed all vitals monitoring equipment. New iv cath started to the rt ac with coban and pts long sleeve pulled over the top.
[2025-01-28 09:21] LABS: Hematocrit 38.6 % (36-47); Hemoglobin 12.60 g/dL (11.27-16.99); Mean Corpuscular HGB Conc 32.6 g/dL (30-55); Mean Corpuscular Hemoglobin 27.6 pg (27-33); Mean Corpuscular Volume 84.5 fl (85-98); Nucleated Red Blood Cells % 0 %; Platelet Count 332 10^3/cmm (157-399); Red Blood Count 4.57 10^6/uL (3.85-5.65); White Blood Count 8.25 10^3/uL (3.29-11.43)
[2025-01-28 09:42] LABS: Alanine Aminotransferase 16 U/L (0-33); Albumin Level 3.4 g/dL (3.5-5.2); Alkaline Phosphatase 98 U/L (35-105); Anion Gap 18.7 (5-19); Aspartate Amino Transferase 17 U/L (0-32); Blood Urea Nitrogen 12 mg/dL (8-23); Calcium 8.9 mg/dL (8.5-10.5); Carbon Dioxide 23 mmol/L (22-29); Chloride 98 mmol/L (98-107); Globulin 3.1 g/dL (1.3-4.6); Glucose 113 mg/dL (65-115); Osmolality Calculated 283 mOsm/kg (285-295); Potassium 3.7 mmol/L (3.5-5.1); Sodium 136 mmol/L (136-145); Total Protein 6.5 g/dL (6.6-8.7)
[2025-01-28 09:55] LABS: INR 0.99 (0.8-1.2); Prothrombin Time 13.80 SECONDS (12.1-14.9)
--- NOTE | 2025-01-28 10:06 | ANES.PREANE2 ---
Pre-Anesthetic Assessment Height/Weight: Height 1.57 m Weight 62.596 kg Temp Pulse Resp BP Pulse Ox O2 Del Method 98.1 F 110 H 19 H 143/79 89 L Room Air 01/28/25 08:43 01/28/25 09:52 01/28/25 09:52 01/28/25 09:52 01/28/25 09:52 01/28/25 09:52 Operation Date: 01/28/25 10:30 Proposed Procedures p Hemiarthroplasty with sagar(Left) - Matthew Mckenna DO Familial anesthetic complications: none Was Beta Sheila taken within 24 hours: N/A Was Clonidine taken within 24 hours: N/A Last intake: > 8 hrs per skilled nursing report Social No alcohol and No tobacco Exam alert, oriented x 3, clear to auscultation bilaterally and regular rate & rhythm Neuropsych Dementia Medications/Allergies Home Medications ?Medication ?Instructions ?Recorded ?Confirmed ?Last Taken ?Type trazodone 50 mg tablet 50 mg PO BEDTIME PRN Sleep 30 days 04/25/24 01/28/25 01/27/25 Rx #30 tabs escitalopram oxalate 10 mg tablet 10 mg PO DAILY 11/03/24 01/28/25 01/27/25 History memantine 21 mg capsule 21 mg PO BEDTIME 11/03/24 01/28/25 01/27/25 History sprinkle,extended release 24hr multivitamin with minerals 1 tab PO DAILY 11/03/24 01/28/25 01/27/25 History paliperidone 6 mg tablet,extended 12 mg PO DAILY 11/03/24 01/28/25 01/27/25 History release 24 hr (Invega) quetiapine 50 mg tablet,extended 50 mg PO BEDTIME 11/03/24 01/28/25 01/27/25 History release 24 hr acetaminophen 500 mg tablet 1,000 mg PO Q6H PRN pain/fever 01/28/25 01/28/25 12/20/24 History levothyroxine 125 mcg tablet 125 mcg PO QAM 01/28/25 01/28/25 01/28/25 History Allergies Allergy/AdvReac Type Severity Reaction Status Date / Time No Known Allergies Allergy Verified 03/28/24 17:46 PFSH Anesthesia Medical History (Updated 01/28/25 @ 11:40 by Charito A Dankwa, PHOTOGRAMMETRIC COMPILATION SPECIALIST, GOVERNMENT GUARD) Psychiatric care Data Anesthesia 01/28/25 09:18 01/28/25 09:18 Short CBC 01/28/25 Range/Units 09:18 WBC 8.25 (3.29-11.43) 10^3/uL Hgb 12.60 (11.27-16.99) g/dL Hct 38.6 (36-47) % MCV 84.5 L (85-98) fl Plt Count 332 (157-399) 10^3/cmm Neut % (Auto) 78.4 % Neut # (Auto) 6.47 (1.8-7.7) 10^3/uL BMP 01/28/25 09:18 Sodium 136 Potassium 3.7 Chloride 98 Carbon Dioxide 23 BUN 12 Creatinine 0.5 Glucose 113 Calcium 8.9 Liver Function 01/28/25 Range/Units 09:18 Total Bilirubin 0.4 (0.15-1.2) mg/dL AST 17 (0-32) U/L ALT 16 (0-33) U/L Alkaline Phosphatase 98 (35-105) U/L Albumin 3.4 L (3.5-5.2) g/dL Coags 01/28/25 09:18 PT 13.80 INR 0.99
--- NOTE | 2025-01-28 10:18 | PM.CONSULT ---
Providers/Reason For Consult Consulting Physician/Specialty*: Matthew Mckenna DO/orthopedic surgery Reason for Consult*: Left hip displaced femoral neck fracture Requesting Physician: Dr. Medina/Dr. Spencer Attending Physician: Matthew Mckenna DO History of Present Illness History of Present Illness Osiris Teran is a 64 year old female demented who presents from a intermediate had a fall roughly 2 days ago. She has been unable to bear weight complaining of left hip pain brought in emergency department found to have a left hip displaced femoral neck fracture hospitalist on board admitting patient as primary and orthopedics consulted for treatment recommendations. Patient is poor historian and HPI is only obtained from patient's son as well as emergency department provider. Patient last ate last night per the emergency department provider from the intermediate. According to son she does ambulate some at baseline. Lives in a intermediate. Has dementia. Review of Systems General: Reports: ROS unobtainable due to mental status Medications/Allergies Home Medications ?Medication ?Instructions ?Recorded ?Confirmed ?Last Taken ?Type trazodone 50 mg tablet 50 mg PO BEDTIME PRN Sleep 30 days 04/25/24 01/28/25 01/27/25 Rx #30 tabs escitalopram oxalate 10 mg tablet 10 mg PO DAILY 11/03/24 01/28/25 01/27/25 History memantine 21 mg capsule 21 mg PO BEDTIME 11/03/24 01/28/25 01/27/25 History sprinkle,extended release 24hr multivitamin with minerals 1 tab PO DAILY 11/03/24 01/28/25 01/27/25 History paliperidone 6 mg tablet,extended 12 mg PO DAILY 11/03/24 01/28/25 01/27/25 History release 24 hr (Invega) quetiapine 50 mg tablet,extended 50 mg PO BEDTIME 11/03/24 01/28/25 01/27/25 History release 24 hr acetaminophen 500 mg tablet 1,000 mg PO Q6H PRN pain/fever 01/28/25 01/28/25 12/20/24 History levothyroxine 125 mcg tablet 125 mcg PO QAM 01/28/25 01/28/25 01/28/25 History Allergies Allergy/AdvReac Type Severity Reaction Status Date / Time No Known Allergies Allergy Verified 03/28/24 17:46 PFSH Acute PFSH: Medical History (Updated 01/28/25 @ 10:41 by Matthew Mckenna DO) Psychiatric care Vitals/I&O/Wt Last Vital Signs Temp 98.1 F 01/28/25 08:43 Pulse 110 H 01/28/25 10:06 Resp 19 H 01/28/25 09:52 BP 144/83 01/28/25 10:06 Pulse Ox 91 01/28/25 10:06 O2 Del Method Room Air 01/28/25 09:52 Weight last 48 hrs Weight 138 lb Physical Exam Narrative: Examination limited secondary to patient's dementia and baseline mental status she is unable to be awakened to follow any commands Patient does grimace with range of motion and positive logroll examination of the left hip, the left hip does appear to have tenderness to palpation as patient does have grimacing with pain, unable to assess motor or sensory to the bilateral lower extremities and bilateral upper extremities secondary to patient's being unarousable and unable to follow any commands. She does have appreciable swelling at the left hip. There does not appear to be any deformities Bilateral upper and lower extremities are warm well-perfused distal pulses are palpable. Once again rest of examination is limited due to patient's baseline mental status. Data 01/28/25 09:18 01/28/25 09:18 Xray Ortho: Radiologist's impression: Patient: Osiris Teran Unit #: [id number] : 1960 Age/Sex: 64 / F ADM Date: 01/28/25 Loc: ER Room/Bed: Attending: Ordering Provider/Ordering MD: Kavya Medina MD Date of Service: 01/28/25 Procedure(s): XR hip LT 2-3V wo/w pel* [id number] Accession Number(s): [id number] Report Number: [id number] PROCEDURE INFORMATION: Exam: XR Left Hip Exam date and time: 01/28/2025 8:46 AM Age: 64 years old Clinical indication: Injury or trauma; Fall; Blunt trauma (contusions or hematomas); Left; Hip TECHNIQUE: Imaging protocol: Radiologic exam of the left hip. Views: 2 or 3 views hip with pelvis when performed. COMPARISON: No relevant prior studies available. FINDINGS: Bones/joints: Acute mildly displaced subcapital LEFT femoral neck fracture. No dislocation. Soft tissues: Unremarkable. XR/XR hip LT 2-3V wo/w pel* [id number] IMPRESSION: Acute mildly displaced subcapital LEFT femoral neck fracture Patient: Osiris Teran Unit #: [id number] : 1960 Age/Sex: 64 / F ADM Date: 01/28/25 Loc: ER Room/Bed: Attending: Ordering Provider/Ordering MD: Kavya Medina MD Date of Service: 01/28/25 Procedure(s): XR ankle LT min 3V* [id number] Accession Number(s): [id number] Report Number: [id number] PROCEDURE INFORMATION: Exam: XR Left Ankle Exam date and time: 01/28/2025 8:46 AM Age: 64 years old Clinical indication: Injury or trauma; Fall; Blunt trauma; Ankle; Left TECHNIQUE: Imaging protocol: Radiologic exam of the left ankle. Views: 3 or more views. COMPARISON: No relevant prior studies available. FINDINGS: Bones/joints: Normal. Soft tissues: Normal. XR/XR ankle LT min 3V* [id number] IMPRESSION: A&P Assessment and plan 1. Left displaced femoral neck fracture: Plan: Orthopedics consulted Hospitalist admitted patient is primary Imaging reviewed?displaced left?hip?femoral neck fracture Labs reviewed Pain control Patient's been n.p.o. since midnight Nonweightbearing left lower extremity Son (Stone) who is patient's medical decision maker is available for phone call we did discuss treatment options and elects to proceed with surgical invention for left hip hemiarthroplasty Plan to add on for surgery today for a left?hip?hemiarthroplasty MDM: Patient demented 64-year-old female who lives at a intermediate sustained a ground fall and has a displaced left hip femoral neck fracture at this point in time given her baseline mental status she is a poor historian and difficult to arouse for following of any commands she has a left hip displaced femoral neck fracture I subsequently reached out to her son who was able to make medical decision making for this patient as patient's mental status she is unable to sign any consents for herself. At this point time I detailed out her options in detail as far as nonoperative versus operative invention. At this point in time for better pain control as well as goals of early mobilization would recommend a left hip hemiarthroplasty given the displacement of the fracture. We talked about this in detail and through shared decision-making patient elects proceed with surgical intervention for left hip hemiarthroplasty. Once again we detailed out the ins and outs of the procedure the risks the benefits complication alternative surgical nonsurgical treatment options. Risk of surgery include but not limited to make it better make it worse injury to nerves vessels or tendons, blood clot, anesthetic complications, mortality, acute blood loss. Understanding risk of surgery patient Son understands and agrees with current?plan.? All questions have been answered at this time.? Through shared decision-making elects to proceed with surgical intervention for a left?hip?hemiarthroplasty.? Will plan to proceed to the OR today. Son signed consent verbally over the phone with myself anesthesia provider and nursing staff as witness to proceed with surgery today for left hip hemiarthroplasty. PDMP PDMP Reviewed: Not Reviewed Coding Level of Care Code Acute Code for Chg Fwd Diagnoses Left displaced femoral neck fracture S72.002A Time Spent (min) 45
[2025-01-28] MEDS: ceFAZolin 2,000 mg SDV 2000 MG IVP (11:20)
[2025-01-28] MEDS: tranexamic acid 1,000 mg/10mL SDV 1000 MG IV (11:27)
--- NOTE | 2025-01-28 11:32 | PM.HP ---
Providers/Chief Complaint Admitting Physician: Danisha Spencer MD Chief Complaint: left hip trisha s/p fall History of Present Illness Osiris Teran is a 64 year old female with prior medical history of psychosis, cannabis use disorder, homicidal ideation, memory loss, and dementia presenting with complaints of fall. Patient resides at a care home. Patient is a poor historian and unable to self sign consents - she does have a son involved in her care available for shared decision-making. At time of assessment, patient is post op and resting. Not able to answer questions at this time. In the ED, BP 144/83, HR 110, RR 19, T 98.1, O2 91% on room air. CBC and CMP unremarkable. Ankle xray; No acute findings. Hip/Pelvis Xray; Acute mildly displaced subcapital LEFT femoral neck fracture. CXR; No acute findings. Patient undergoing surgery today for left himiarthroplasty. Will admit to Hospitalist Service for further evaluation and treatment. Review of Systems General: Reports: ROS unobtainable due to mental status Medications/Allergies Home Medications ?Medication ?Instructions ?Recorded ?Confirmed ?Last Taken ?Type trazodone 50 mg tablet 50 mg PO BEDTIME PRN Sleep 30 days 04/25/24 01/28/25 01/27/25 Rx #30 tabs escitalopram oxalate 10 mg tablet 10 mg PO DAILY 11/03/24 01/28/25 01/27/25 History memantine 21 mg capsule 21 mg PO BEDTIME 11/03/24 01/28/25 01/27/25 History sprinkle,extended release 24hr multivitamin with minerals 1 tab PO DAILY 11/03/24 01/28/25 01/27/25 History paliperidone 6 mg tablet,extended 12 mg PO DAILY 11/03/24 01/28/25 01/27/25 History release 24 hr (Invega) quetiapine 50 mg tablet,extended 50 mg PO BEDTIME 11/03/24 01/28/25 01/27/25 History release 24 hr acetaminophen 500 mg tablet 1,000 mg PO Q6H PRN pain/fever 01/28/25 01/28/25 12/20/24 History levothyroxine 125 mcg tablet 125 mcg PO QAM 01/28/25 01/28/25 01/28/25 History Allergies Allergy/AdvReac Type Severity Reaction Status Date / Time No Known Allergies Allergy Verified 03/28/24 17:46 PFSH Acute PFSH: Medical History Psychiatric care Vitals/I&O/Wt Last Vital Signs Temp 98.1 F 01/28/25 08:43 Pulse 110 H 01/28/25 10:06 Resp 19 H 01/28/25 09:52 BP 144/83 01/28/25 10:06 Pulse Ox 91 01/28/25 10:06 O2 Del Method Room Air 01/28/25 09:52 Weight last 48 hrs Weight 62.596 kg Physical Exam Narrative: General: Altered mentation, dementia, confusion. Skin: Warm, dry. Head: Normocephalic, atraumatic. Neck: Supple, trachea midline. Eye: Extraocular movements are intact. Ears, nose, mouth and throat: mucosa moist. Cardiovascular: Regular, Normal peripheral perfusion. Respiratory: Lungs are clear to auscultation, respirations are non-labored, breath sounds are equal, Symmetrical chest wall expansion. Gastrointestinal: Soft, Nontender, Non distended Musculoskeletal: Immobilization precautions s/p procedure Neurological: Confusion. . Data 01/28/25 09:18 01/28/25 09:18 A&P Assessment and plan 1. Left displaced femoral neck fracture: Ground fall at care home NPO since midnight Ortho surgery consulted, recommendations appreciated Fall risk precautions Pain management Non-weight bearing, bedrest Urinary catheter and care PT/OT prior to discharge 2. Dementia: Continue memantine 3. Cannabis use disorder: Cessation education when possible 4. Psychosis: Hx of psychosis and psychiatric treatment Continue home regimen 5. Hypertension: BP 144/83 Vital monitoring 6. Sinus tachycardia: Possibly secondary to pain EKG Telemetry PDMP PDMP Reviewed: Not Reviewed Attestations Medical Necessity Statement*: Initial hospitalization for two midnights secondary fall, fracture requiring surgical intervention, and monitoring of altered mental status. Diagnoses Left displaced femoral neck fracture S72.002A Dementia F03.90 Cannabis use disorder F12.90 Psychosis F29 Hypertension I10 Sinus tachycardia R00.0 Time Spent (min) 70
--- NOTE | 2025-01-28 12:35 | W.PM.BPON ---
Date of Procedure: 01/28/2025 Surgeon: Matthew Mckenna DO Health Companion(s): Amandeep Mckenna PA-C Procedure(s) performed: Left hip hemiarthroplasty Findings of the procedure(s): Underwent procedure as planned without issues or complications taken recovery stable condition Estimated blood loss: 100 mL Specimen(s) removed: Femoral head removed Post-operative diagnosis: Left hip displaced femoral neck fracture
--- NOTE | 2025-01-28 12:38 | PM.OP ---
Operative Report Date of procedure: January 28, 2025 Surgeon: Matthew Mckenna DO Captain Fishing Vessel: Amandeep Mckenna PA-C: PA was necessary for assistance in this case with leg positioning, hip reduction, retraction and protection of neurovascular structures as well as assistance in implantation of prosthesis, assistance with wound closure and dressing application. Procedure: Preoperative diagnosis: Left hip displaced femoral neck fracture Post-op diagnosis: Same Procedure done: Left?hip?hemiarthroplasty Implants: Ranjeet insignia high offset size 4 stem Bipolar head 44 mm Femoral head +0 mm offset Surgeon: Matthew Mckenna DO Estimated blood loss: 100 mL IV fluids: 1000 mL Urine output: 300 mL Complications: None Findings: See operative report Condition: stable Disposition: floor Brief History: Patient was seen in the emergency department and subsequently admitted after fall.? Patient sustained a Left displaced femoral neck fracture.? Patient was subsequently admitted by the hospitalist team for medical management and medical optimization, the orthopedic surgery team was consulted for evaluation and treatment recommendations.? Patient demented at baseline and as a result discussed case with patient's son. We talked about nonoperative versus operative intervention talked about the risk benefits complication alternatives to surgical nonsurgical treatment options.? Risks of surgery were discussed and patient's son understands and agrees to proceed with procedure for left hip hemiarthroplasty. This will offer patient pain control as well as early weightbearing.? Patient was medically optimized and patient's son consent was performed over the phone with anesthesia myself and nursing staff.?? All questions answered.? Procedure: Patient seen evaluated the preoperative holding area.? Consent was reviewed and signed with patient.? ?Pt was seen evaluated by the anesthesia department.? Once cleared for surgery patient patient was taken back to the operative suite.? Patient was then transported onto the OR table.? pt underwent anesthesia per the anesthesia department.? Once appropriately anesthetized patient was then positioned in lateral decubitus position with the Left?hip?up.? Patient was?placed on a pegboard appropriately secured to the bed all bony prominences well-padded.? Next the Left lower extremity was then prepped and draped in sterile orthopedic fashion.? Final timeout performed.? Patient received appropriate preoperative antibiotics. A standard posterolateral approach was then made over the lateral aspect of the?hip.? Sharp scalpel incision was made through skin and subcutaneous tissue I then utilized a Sutherland elevator to mobilize over the fascia.? The fascia was then split longitudinally with electrocautery.? Next a bursectomy was then performed.? I then?placed Hohmann underneath the abductors.? The?hip?was?placed under tension with internal rotation.? I then utilizing electrocautery performed a full-thickness release of the short external rotators and capsule in 1 full thick sleeve for lateral repair.? This was then taken down to the lesser trochanter.? Immediately on capsulotomy hematoma was noticed and displaced femoral neck fracture appreciated.? I then?placed a Hohmann above and below the neck.? I then utilized an oscillating saw to freshen the cut this was roughly half of a fingerbreadth above the lesser as patient did fracture slightly lower on the neck.? Once this was performed this access was removed with rongeur.? ?I then utilized a corkscrew to remove the head.? This was then subsequently sized and measured to be a 44mm head size.? I then thoroughly irrigated the acetabulum.? A Hohmann was?placed anteriorly and thorough inspection of the acetabulum no significant arthritic changes were noted.? I then utilized a rongeur and Bovie to remove the pulvinar.? Once this was performed I then subsequently took my trial 44 mm head and trialed this which had excellent fit and appropriate suction fit noted.? This was then subsequently removed. Once this was performed I irrigated the socket and then turned my attention towards the femoral preparation.? I utilized Bovie and rongeur to remove the soft tissue off of the saddle.? Once this was done a box osteotome followed by a canal finder and? lateralizing rattail rasp was used to appropriately lateralized in the canal.? I then sequentially broached up to a size 4 [place] insignia high offset stem. Patient had appropriate cortices for press-fit fixation. I then subsequently trialed and was satisfied with a +0 mm head. At this point in time found to have appropriate leg length as well as appropriate shock as well as excellent stability in all planes of motion with no evidence of instability. As result I called for this is my final implant. All trials were then subsequently removed. The femoral stem size 4 was then impacted in?place with appropriate anteversion. I then had the implant rested at the same level and then was determined to being my final femoral head size.?the final implant of bipolar head 44 mm with a +0 mm offset was then opened.? The trunnion was then cleaned and dried and this was impacted in?place with excellent fixation.? I then reduced the?hip?this had excellent stability and appropriate leg lengths.? The wound bed was then thoroughly irrigated.? I then utilizing #5 Ethibond suture performed my repair of the capsule and short external rotators through bone tunnels.? ?Wound bed was then thoroughly irrigated,1 gram vanco powder?placed in wound bed.? IT band was closed with strata fix suture and the deep subcutaneous and subcutaneous layers were closed with 0 strata fix and 2-0 strata fix.? Skin was then closed reapproximated with ruth.? Silverlon dressing applied.? Patient?placed in abduction pillow posterior?hip?precautions.? pt? was awakened from anesthesia and taken to PACU in stable condition Disposition: Patient taken to PACU in stable condition will receive appropriate discharge directions as well as pain medication DVT prophylaxis postoperatively.? Patient? will return to the floor postoperatively.? Patient will be weightbearing as tolerated to the Left lower extremity.? Posterior?hip?precautions. Abduction pillow in?place.? DVT prophylaxis, pain medication, postoperative antibiotics and TXA.? Patient will work with PT/OT and discharge services for discharge?planning.? Patient son updated postop and understands agrees with current?plan.? All questions answered.? ?patient will? see me in the office in 2 weeks.
--- NOTE | 2025-01-28 12:47 | XRR_ITS ---
PROCEDURE INFORMATION: Exam: XR Left Hip Exam date and time: 01/28/2025 1:46 PM Age: 64 years old Clinical indication: Injury or trauma; Fall; Fracture of pelvis & hip; Left; Not specified; Articular head of femur; Closed fracture; Additional info: Post op left hip [place], do in pacu TECHNIQUE: Imaging protocol: Radiologic exam of the left hip. Views: 2 or 3 views hip with pelvis when performed. COMPARISON: CR XR hip LT 2-3V wo/w pel* [id number] 01/28/2025 8:46 AM FINDINGS: Bones/joints: Interval left total hip arthroplasty. Hardware appears intact without complication. Anatomic alignment. Soft tissues: Expected postsurgical subcutaneous gas. XR/XR hip LT 2-3V wo/w pel* [id number] IMPRESSION: Left total hip arthroplasty without apparent complication.
[2025-01-28] MEDS: acetaminophen 1,000 MG/100 ML PIGGYBACK 400 MG IV ×2 (14:25→22:40)
[2025-01-28 14:29] LABS: Hematocrit 38.6 % (36-47); Hemoglobin 11.80 g/dL (11.27-16.99); Mean Corpuscular HGB Conc 30.6 g/dL (30-55); Mean Corpuscular Hemoglobin 27.7 pg (27-33); Mean Corpuscular Volume 90.6 fl (85-98); Nucleated Red Blood Cells % 0 %; Platelet Count 305 10^3/cmm (157-399); Red Blood Count 4.26 10^6/uL (3.85-5.65); White Blood Count 9.14 10^3/uL (3.29-11.43)
--- NOTE | 2025-01-28 14:46 | PC.NURSE ---
Patient A&O to person, name, . Patient continues to pull off oxygen, heart monitor, and pulse oximeter.
[2025-01-28 14:51] LABS: Anion Gap 17.9 (5-19); Blood Urea Nitrogen 11 mg/dL (8-23); Calcium 8.1 mg/dL (8.5-10.5); Carbon Dioxide 19 mmol/L (22-29); Chloride 102 mmol/L (98-107); Glucose 113 mg/dL (65-115); Osmolality Calculated 280 mOsm/kg (285-295); Potassium 3.9 mmol/L (3.5-5.1); Sodium 135 mmol/L (136-145)
--- NOTE | 2025-01-28 16:50 | PC.NURSE ---
This nurse spoke with a nurse at [facility] about patient's diet and how she takes her medications. She stated patient is able to eat normal food, however the patient will usually only eat a peanut butter sandwich and drink red koolaid for every meal and occasionally will eat something else. She stated the patient takes medications whole but sometimes needs encouragement to take them.
[2025-01-28] MEDS: mupirocin oint 22 gm 1 APPLIC NASAL (17:06)
[2025-01-28] MEDS: tranexamic acid 1,000 MG/100 ML PREMIX 600 MG IV (18:55)
[2025-01-28] MEDS: ceFAZolin 2,000 MG in sodium chloride 0.9% (plus) 50 ML 100 MG IV (18:59)
[2025-01-28 19:26] LABS: Glucose Urine UA Negative (Normal); Nitrate Urine Negative (Negative)
[2025-01-28 19:31] LABS: Add Urine Microscopic? YES
[2025-01-28 19:36] LABS: Specific Gravity, Urine 1.034 (1.005-1.030)
[2025-01-28 20:05] LABS: Magnesium 1.9 mg/dL (1.7-2.3)
[2025-01-29] VITALS (8 sets, daily range): BP systolic 96–120; BP diastolic 58–70; PULSE 63–104; RESP 16–18; TEMP 36.7–36.9; O2SAT 91–97
[2025-01-29 03:55] LABS: Hematocrit 31.2 % (36-47); Hemoglobin 9.90 g/dL (11.27-16.99); Mean Corpuscular HGB Conc 31.7 g/dL (30-55); Mean Corpuscular Hemoglobin 27.7 pg (27-33); Mean Corpuscular Volume 87.4 fl (85-98); Nucleated Red Blood Cells % 0 %; Platelet Count 259 10^3/cmm (157-399); Red Blood Count 3.57 10^6/uL (3.85-5.65); White Blood Count 8.03 10^3/uL (3.29-11.43)
[2025-01-29] MEDS: ceFAZolin 2,000 MG in sodium chloride 0.9% (plus) 50 ML 100 MG IV ×2 (04:07→10:48)
[2025-01-29] MEDS: paliperidone ER 6 mg Tablet 12 MG PO (04:07)
[2025-01-29] MEDS: chlorhexidine gluconate 0.12% Btl 473 mL 30 ML MUCOUS MEM (04:08)
[2025-01-29] MEDS: mupirocin oint 22 gm 1 APPLIC NASAL (04:09)
[2025-01-29 04:23] LABS: Anion Gap 13.6 (5-19); Blood Urea Nitrogen 11 mg/dL (8-23); Calcium 8.1 mg/dL (8.5-10.5); Carbon Dioxide 24 mmol/L (22-29); Chloride 105 mmol/L (98-107); Glucose 84 mg/dL (65-115); Osmolality Calculated 287 mOsm/kg (285-295); Potassium 3.6 mmol/L (3.5-5.1); Sodium 139 mmol/L (136-145)
[2025-01-29] MEDS: haloperidol inj 5 mg/mL INJ 1 mL IM (05:48)
[2025-01-29] MEDS: acetaminophen 1,000 MG/100 ML PIGGYBACK 400 MG IV (05:48)
[2025-01-29] MEDS: pantoprazole 40 mg SDV IVP (08:16)
--- NOTE | 2025-01-29 10:05 | PC.CHAP ---
Pastoral Care Encounter/Spiritual Assessment Type of Contact [] Declined oven unloader visit [] Patient/Family/Request visit [] Outpatient visit [] Follow-up visit [] Physician referral [] Code/Alert [x] Routine visit [] Staff referral [] Actively dying [x] Patient sleeping [] Family support [] [] Out of room [] Palliative care [] [] Receiving care in room [] Pre-surgical visit [] Trauma [] Long length of stay [] ICU visit [] Other: Relational/Emotional Strength [] Patient feels connected with others/family/visitors/staff [] Distress [] Loneliness/isolation [] Abandonment Spirituality of Patient [] Person of Martha [] Attends [employer] of their Martha [] Believes in Prayer [] Reads Bible or Mormon materials [] There are Spiritual issues to be addressed Legal Support Analyst Interventions [x] Prayer [] Active listening [] Non-anxious presence [] Spiritual/emotional support [] Crisis/trauma care [] Spiritual counseling [] Bereavement support [] Provided bereavement packet [] Provided Bible/devotional materials [] Provided toy/stuffed animal, coloring book to patient or family member [] Provided Communion [] Anointing/[place] [] Salvation [] Completed spiritual assessment [] Other: Impact on Illness or Injury [] Angry [] Fearful [] Anxious [] Often cries [] Exhaustion [] Unable to work [] Unable to attend advent [] Unable to walk/stand [] Unable to read [] Unable to drive [] Unable to eat/drink [] Unable to sleep [] Unable to be with family [] Patient intubated [] Other: Summary Time spent with patient
--- NOTE | 2025-01-29 14:44 | PC.OT ---
OT EVALUATION ATTEMPTED; PATIENT BRIEFLY OPENS EYES BUT DOES NOT KEEP THEM OPEN AND WILL NOT RESPOND TO THERAPIST. WILL ATTEMPT AGAIN AT A LATER TIME.
--- NOTE | 2025-01-29 16:49 | PM.PN ---
Subjective Subjective: The patient was seen in the morning, doing well. Mild pain on the site of surgery/left hip hemiarthroplasty The patient seems deconditioned however is alert and able to interact Vitals/I&O/Wt Last Vital Signs Temp 98.4 F 01/29/25 15:47 Pulse 95 01/29/25 15:47 Resp 17 01/29/25 15:47 BP 103/60 01/29/25 15:47 Pulse Ox 94 01/29/25 15:47 O2 Del Method Nasal Cannula 01/29/25 11:24 O2 Flow Rate 1 01/29/25 08:00 01/29/25 01/29/25 01/29/25 06:59 14:59 22:59 Intake Total 250 / 1800 980 / 980 Output Total 120 / 1095 450 / 450 Balance 130 / 705 530 / 530 Weight last 48 hrs Weight 67.812 kg Weight 63.276 kg Weight 62.596 kg Physical Exam Narrative: General: Alert and oriented, lying comfortably without any distress at room air HEENT: Normocephalic, atraumatic, grossly unremarkable exam Cardio: normal rate rhythm, normal S1-S2 without any murmurs, rubs, or gallops and JVD normal Respiratory: Limited exam due to morbid obesity normal vascular breathing on auscultation without any wheezes, stridor, rhonchi GI: Abdomen soft, nontender, nondistended, normoactive bowel sounds present all 4 quadrants, Neuro: Grossly unremarkable neurological exam however unable to assess thoroughly s/p left hip hemiarthroplasty Behavior: Appropriate and cooperative Extremities: Adequate palpable pulses, mild trace edema bilaterally, left hip dressing seen, hematoma oozing or any irregular contour. Both extremities in normal anatomical position Urinary Catheter Management: Ashley: Cath Placed During This Visit: yes Reason for Continuing Indwelling Catheter: Other Urinary Catheter Date of Insertion: 01/28/25 Urinary Catheter Time of Insertion: 11:20 Data 01/29/25 03:27 01/29/25 03:27 A&P Assessment and plan 1. Left displaced femoral neck fracture: Ground fall at senior living Patient s/p left hip hemiarthroplasty Ortho surgery on board and to follow the recommendation Fall risk precautions Pain management Non-weight bearing, bedrest Urinary catheter and care PT/OT 2. Microcytic anemia: Possible postsurgery, acute blood loss anemia No signs of hemodynamic compromise Anemia workup Monitor CBC and continue multivitamins Continue iron replacement per surgery 3. UTI (urinary tract infection): acute simple cystitis with symptoms of urinary frequency, increased incontinence therefore considering pt age and multiple co-morbid conditions and weighing the benefits and risks, to continue on ceftriazone FU urine cultures final report maintain urine cath care. monitor I/O 4. Malnourished: Dietitian consulted to follow the recommendation 5. Hypothyroid: Continue home dose levothyroxine 125 mcg in the morning 6. Dementia: Continue baseline medication memantine 21 mg at bedtime 7. Psychosis: Hx of psychosis and psychiatric treatment Currently stable continue to monitor Continue home medication quetiapine 50 mg at bedtime and trazodone at bedtime as needed for sleep 8. Hypertension: Patient had mild soft blood pressure overnight however status of surgery the blood pressure is at the normal range Avoid any antihypertensives at the moment 9. Sinus tachycardia: More or less it is getting normal Likely related to discomfort secondary to left hip fracture and currently postsurgery the patient is feeling better Adequate analgesia Continue to monitor vitals PDMP PDMP Reviewed: Not Reviewed Attestations Medical Necessity Statement*: Patient will stay overnight s/p surgery for OT PT evaluation and possible transfer back to senior living if no concerning diagnostics and clinically stable tomorrow Time Spent in Patient Care: 16 - 35 minutes (>than 50% of time spent in counselling and/or direct pt care on unit). Other Attestations: Patient condition has been discussed at length with the patient/family, I have independently reviewed the chart labs imaging/diagnostics/EKG. the goals of care and code status with the patient/family/NOK/legal telephone service representative, and documented accordingly. The management has been done according to the current clinical condition with respect to patient goals of care and based on recommendations/guidelines. The patient/family has been informed about the current condition and further plan of care. Agreed with the plan of care and understood without any language barrier. Every effort was made to ensure accuracy of vulcanizing machine operator. Any obvious errors or omissions should be clarified with the author of the document. Coding Level of Care Code 49441 Diagnoses Left displaced femoral neck fracture S72.002A Microcytic anemia D50.9 UTI (urinary tract infection) N39.0 Malnourished E46 Hypothyroid E03.9 Dementia F03.93 Dementia behavioral or psychological symptom: with mood disturbance Dementia severity: unspecified severity Dementia type: unspecified type Psychosis F29 Hypertension I10 Sinus tachycardia R00.0
--- NOTE | 2025-01-29 16:49 | PC.NURSE ---
This nurse has attempted to give 1700 meds 3 times and pt has refused every time. This nurse will non-admit these medications and return to [facility].
[2025-01-30 03:46] VITALS: BP 114/64; PULSE 80; RESP 16; TEMP 36.5; O2SAT 92
[2025-01-30 06:19] LABS: Hematocrit 32.1 % (36-47); Hemoglobin 10.00 g/dL (11.27-16.99); Mean Corpuscular HGB Conc 31.2 g/dL (30-55); Mean Corpuscular Hemoglobin 27.7 pg (27-33); Mean Corpuscular Volume 88.9 fl (85-98); Nucleated Red Blood Cells % 0 %; Platelet Count 281 10^3/cmm (157-399); Red Blood Count 3.61 10^6/uL (3.85-5.65); White Blood Count 7.17 10^3/uL (3.29-11.43)
[2025-01-30 06:32] LABS: Alanine Aminotransferase < 5 U/L (0-33); Albumin Level 2.7 g/dL (3.5-5.2); Alkaline Phosphatase 75 U/L (35-105); Anion Gap 15.0 (5-19); Aspartate Amino Transferase 23 U/L (0-32); Blood Urea Nitrogen 10 mg/dL (8-23); Calcium 7.8 mg/dL (8.5-10.5); Carbon Dioxide 22 mmol/L (22-29); Chloride 107 mmol/L (98-107); Globulin 2.4 g/dL (1.3-4.6); Glucose 86 mg/dL (65-115); Osmolality Calculated 290 mOsm/kg (285-295); Potassium 3.0 mmol/L (3.5-5.1); Sodium 141 mmol/L (136-145); Total Protein 5.1 g/dL (6.6-8.7)
[2025-01-30 07:16] VITALS: BP 136/81; PULSE 96; RESP 18; TEMP 37; O2SAT 96
[2025-01-30 08:01] VITALS: BP 136/81; PULSE 96; RESP 18; TEMP 37
[2025-01-30] MEDS: pantoprazole 40 mg SDV IVP (08:09)
--- NOTE | 2025-01-30 09:10 | PC.CHAP ---
Pastoral Care Encounter/Spiritual Assessment Type of Contact [] Declined glass cutter hand visit [] Patient/Family/Request visit [] Outpatient visit [] Follow-up visit [] Physician referral [] Code/Alert [] Routine visit [] Staff referral [] Actively dying [x] Patient sleeping [] Family support [] [] Out of room [] Palliative care [] [] Receiving care in room [] Pre-surgical visit [] Trauma [] Long length of stay [] ICU visit [] Other: Relational/Emotional Strength [] Patient feels connected with others/family/visitors/staff [] Distress [] Loneliness/isolation [] Abandonment Spirituality of Patient [] Person of Martha [] Attends Congregation of their Martha [] Believes in Prayer [] Reads Bible or Druze materials [] There are Spiritual issues to be addressed Dry Boss Interventions [] Prayer [] Active listening [] Non-anxious presence [] Spiritual/emotional support [] Crisis/trauma care [] Spiritual counseling [] Bereavement support [] Provided bereavement packet [] Provided Bible/devotional materials [] Provided toy/stuffed animal, coloring book to patient or family member [] Provided Communion [] Anointing/[place] [] Salvation [] Completed spiritual assessment [] Other: Impact on Illness or Injury [] Angry [] Fearful [] Anxious [] Often cries [] Exhaustion [] Unable to work [] Unable to attend moravian [] Unable to walk/stand [] Unable to read [] Unable to drive [] Unable to eat/drink [] Unable to sleep [] Unable to be with family [] Patient intubated [] Other: Summary Time spent with patient
--- NOTE | 2025-01-30 11:21 | PC.OT ---
OT EVALUATION ATTEMPTED. PATIENT SLEEPING SOUNDLY AND DOES NOT AWAKEN TO MULTIPLE ATTEMPTS AT CALLING OUT HER NAME. WILL ATTEMPT AGAIN AT A LATER TIME.
[2025-01-30 11:27] VITALS: BP 109/69; PULSE 106; RESP 17; TEMP 36.6; O2SAT 91
--- NOTE | 2025-01-30 13:17 | P.PN_ITS ---
Vitals/I&O/Wt Last Vital Signs Temp 98 F 01/30/25 11:27 Pulse 106 H 01/30/25 11:27 Resp 17 01/30/25 11:27 BP 109/69 01/30/25 11:27 Pulse Ox 91 01/30/25 11:27 O2 Del Method Room Air 01/30/25 11:27 O2 Flow Rate 1 01/29/25 08:00 01/29/25 01/30/25 01/30/25 22:59 06:59 14:59 Intake Total 482.5 / 1462.5 240 / 1702.5 360 / 360 Output Total 0 / 450 300 / 750 Balance 482.5 / 1012.5 -60 / 952.5 360 / 360 Weight last 48 hrs Weight 145 lb 9.6 oz Weight 146 lb 4.8 oz Weight 149 lb 8 oz Weight 139 lb 8 oz Physical Exam 2 Urinary Catheter Management: Ashley: Cath Placed During This Visit: yes Reason for Continuing Indwelling Catheter: Perioperative Use in Selected Surgeries Urinary Catheter Date of Insertion: 01/28/25 Urinary Catheter Time of Insertion: 11:20 Data 01/30/25 05:52 01/30/25 05:52 A&P PDMP PDMP Reviewed: Not Reviewed Coding Level of Care Code Acute Code for Chg Fwd
--- NOTE | 2025-01-30 13:36 | PC.OT ---
SKILLED OT EVALUATION ATTEMPTED MULTIPLE TIMES; PATIENT AWAKENS BUT WILL NOT RESPOND TO THERAPIST. NO SKILLED OT AT THIS TIME. IF PATIENT IS ABLE TO ACTIVELY PARTICIPATE IN SKILLED OT; PLEASE REORDER THERAPY AND WILL ADDRESS AT THAT TIME.
[2025-01-30 14:31] VITALS: BP 130/78; PULSE 101; RESP 16; TEMP 36.8; O2SAT 95
[2025-01-30 15:36] VITALS: BP 130/78; PULSE 101; RESP 16; TEMP 36.8; O2SAT 95
--- NOTE | 2025-01-30 16:06 | PM.DCS ---
Discharge Providers Date of Admission: 01/28/25 12:29 Date of Discharge: January 30, 2025 Attending Provider at Admission: Marlon Spencer Attending Provider at Discharge: Pascale Culver MD Diagnoses at Discharge Discharge Diagnosis 1. Left displaced femoral neck fracture: 2. Microcytic anemia: 3. UTI (urinary tract infection): 4. Malnourished: 5. Hypothyroid: 6. Dementia: 7. Psychosis: 8. Hypertension: 9. Sinus tachycardia: Reason for Visit Reason for Visit: left hip trisha s/p fall Brief History: As per the previous admitting SYSTEM SOFTWARE PROGRAMMER and retrospective notes, Osiris Teran is a 64 year old female with prior medical history of psychosis, cannabis use disorder, homicidal ideation, memory loss, and dementia presenting with complaints of fall. [facility] resides at a [facility]. Patient is a poor historian and unable to self sign consents - she does have a son involved in her care available for shared decision-making. At time of assessment, patient is post op and resting. Not able to answer questions at this time. In the ED, BP 144/83, HR 110, RR 19, T 98.1, O2 91% on room air. CBC and CMP unremarkable. Ankle xray; No acute findings. Hip/Pelvis Xray; Acute mildly displaced subcapital LEFT femoral neck fracture. CXR; No acute findings. Patient undergoing surgery today for left himiarthroplasty. Will admit to Hospitalist Service for further evaluation and treatment. Hospital Course Hospital Course During patient hospital stay he underwent left hip hemiarthroplasty without any complications. Patient was seen by the OT PT therapy however due to her comorbidities and current mental/medical condition she was unable to actively engage with physical therapy therefore the decision to send her to [facility] was made. The patient had microcytic anemia during her hospital stay which was likely secondary to postop. And no obvious source of bleeding was found. Patient was started on iron replacement. Patient also found to have UA suggestive of simple cystitis therefore started antibiotics and discharged on Bactrim. She was having mild tachycardia postsurgery which is high likely related to her pain and adequate analgesia was provided. Rest of her baseline medications were continued based on her comorbidities and medication were adjusted as inpatient. Appropriate referrals and medications were reconciled after confirmation based on patient clinical condition and comorbidities. Patient condition has been discussed at length with the patient/family, I have independently reviewed the chart labs imaging/diagnostics/EKG. the goals of care and code status with the patient/family/NOK/legal rental sales representative, and documented accordingly. The management has been done according to the current clinical condition with respect to patient goals of care and based on recommendations/guidelines. The patient/family has been informed about the current condition and further plan of care. Agreed with the plan of care and understood without any language barrier. Every effort was made to ensure accuracy of planning advisor. Any obvious errors or omissions should be clarified with the author of the document. Physical Exam Narrative: General: Alert and oriented, lying comfortably without any distress at room air HEENT: Normocephalic, atraumatic, grossly unremarkable exam Cardio: Sinus tachycardia, normal S1-S2 without any murmurs, rubs, or gallops and JVD normal Respiratory: Limited exam due to morbid obesity normal vascular breathing on auscultation without any wheezes, stridor, rhonchi GI: Abdomen soft, nontender, nondistended, normoactive bowel sounds present all 4 quadrants, Neuro: Grossly unremarkable neurological exam however unable to assess thoroughly s/p left hip hemiarthroplasty Behavior: Appropriate and cooperative Extremities: Adequate palpable pulses, mild trace edema bilaterally, left hip dressing seen, no hematoma, oozing or any irregular contour. Urinary Catheter Management: Ashley: Cath Placed During This Visit: yes Reason for Continuing Indwelling Catheter: Perioperative Use in Selected Surgeries Urinary Catheter Date of Insertion: 01/28/25 Urinary Catheter Time of Insertion: 11:20 Discharge Data Studies Completed and Pending Completed Studies During Hospitalization Category Date Time Status CXRP [XR chest 1V portable [id number]] Stat Exams 01/28/25 08:43 Completed XR ankle LT min 3V* [id number] Stat Exams 01/28/25 08:46 Completed XR hip LT 2-3V wo/w pel* [id number] Routine Exams 01/28/25 12:47 Completed XR hip LT 2-3V wo/w pel* [id number] Stat Exams 01/28/25 08:43 Completed Pending at discharge Category Date Time Status Basic Metabolic Panel AM LABS Lab 01/31/25 04:00 Ordered Radiology Impressions Chest X-Ray 01/28/25 08:43 IMPRESSION: No acute findings. Ankle X-Ray 01/28/25 08:46 IMPRESSION: No acute findings. Hip/Pelvis X-Ray 01/28/25 12:47 IMPRESSION: Left total hip arthroplasty without apparent complication. Laboratory Results WBC 7.17 10^3/uL (3.29-11.43) 01/30/25 05:52 RBC 3.61 10^6/uL (3.85-5.65) L 01/30/25 05:52 Hgb 10.00 g/dL (11.27-16.99) L 01/30/25 05:52 Hct 32.1 % (36-47) L 01/30/25 05:52 MCV 88.9 fl (85-98) 01/30/25 05:52 MCH 27.7 pg (27-33) 01/30/25 05:52 MCHC 31.2 g/dL (30-55) 01/30/25 05:52 RDW 13.4 % (12.1-15.1) 01/30/25 05:52 Plt Count 281 10^3/cmm (157-399) 01/30/25 05:52 MPV 8.9 fL (7.4-10.4) 01/30/25 05:52 Neut % (Auto) 64.5 % 01/30/25 05:52 Lymph % (Auto) 22.7 % 01/30/25 05:52 [place] % (Auto) 11.3 % 01/30/25 05:52 Eos % (Auto) 0.8 % 01/30/25 05:52 Baso % (Auto) 0.6 % 01/30/25 05:52 Neut # (Auto) 4.62 10^3/uL (1.8-7.7) 01/30/25 05:52 Lymph # (Auto) 1.6 10^3/uL (0.8-4.8) 01/30/25 05:52 [place] # (Auto) 0.8 10^3/uL (0.2-0.9) 01/30/25 05:52 Eos # (Auto) 0.1 10^3/uL (0.0-0.8) 01/30/25 05:52 Baso # (Auto) 0.0 10^3/uL (0.0-0.1) 01/30/25 05:52 Nucleated RBC % (auto) 0 % 01/30/25 05:52 Nucleated RBCs # 0.0 /100WBC 01/30/25 05:52 PT 13.80 SECONDS (12.1-14.9) 01/28/25 09:18 INR 0.99 (0.8-1.2) 01/28/25 09:18 Sodium 141 mmol/L (136-145) 01/30/25 05:52 Potassium 3.0 mmol/L (3.5-5.1) L 01/30/25 05:52 Chloride 107 mmol/L (98-107) 01/30/25 05:52 Carbon Dioxide 22 mmol/L (22-29) 01/30/25 05:52 Anion Gap 15.0 (5-19) 01/30/25 05:52 BUN 10 mg/dL (8-23) 01/30/25 05:52 Creatinine 0.4 mg/dL (0.5-0.9) L 01/30/25 05:52 GFR Calculation 160.2 mL/min (90-130) H 01/30/25 05:52 Glucose 86 mg/dL (65-115) 01/30/25 05:52 Calculated Osmolality 290 mOsm/kg (285-295) 01/30/25 05:52 Calcium 7.8 mg/dL (8.5-10.5) L 01/30/25 05:52 Phosphorus 3.3 mg/dL (2.5-4.5) 01/28/25 14:21 Magnesium 1.9 mg/dL (1.7-2.3) 01/28/25 14:21 Total Bilirubin 0.3 mg/dL (0.15-1.2) 01/30/25 05:52 AST 23 U/L (0-32) 01/30/25 05:52 ALT < 5 U/L (0-33) 01/30/25 05:52 Alkaline Phosphatase 75 U/L (35-105) 01/30/25 05:52 Total Protein 5.1 g/dL (6.6-8.7) L 01/30/25 05:52 Albumin 2.7 g/dL (3.5-5.2) L 01/30/25 05:52 Globulin 2.4 g/dL (1.3-4.6) 01/30/25 05:52 Urine Color Yellow (Yellow) 01/28/25 19:06 Urine Appearance Clear (CLEAR) 01/28/25 19:06 Urine pH 6.0 (5-7) 01/28/25 19:06 Ur Specific [place] 1.034 (1.005-1.030) H 01/28/25 19:06 Urine Protein 1+ (Negative) A 01/28/25 19:06 Urine Glucose (UA) Negative (Normal) 01/28/25 19:06 Urine Ketones 2+ (Negative) H 01/28/25 19:06 Urine Blood Negative (Negative) 01/28/25 19:06 Urine Nitrate Negative (Negative) 01/28/25 19:06 Urine Bilirubin Negative (Negative) 01/28/25 19:06 Urine Urobilinogen 1.0 mg/dL (Negative) 01/28/25 19:06 Ur Leukocyte Esterase Negative (Negative) 01/28/25 19:06 Urine RBC 3-5 /hpf (0-2) 01/28/25 19:06 Urine WBC 11-20 /hpf (0-5) H 01/28/25 19:06 Ur Squamous Epith Cells 0-5 /hpf (0-5) 01/28/25 19:06 Amorphous Sediment Not Reportable 01/28/25 19:06 Urine Bacteria None seen /hpf (NONE) 01/28/25 19:06 Hyaline Casts 1.21 /lpf 01/28/25 19:06 Blood Type A Positive 01/28/25 10:50 Rho(D) Type Rh positive 01/28/25 10:50 Antibody Screen Negative 01/28/25 10:50 Vitals Last Vital Signs Temp 98.3 F 01/30/25 15:36 Pulse 101 H 01/30/25 15:36 Resp 16 01/30/25 15:36 BP 130/78 01/30/25 15:36 Pulse Ox 95 01/30/25 15:36 O2 Del Method Room Air 01/30/25 15:36 O2 Flow Rate 1 01/29/25 08:00 Discharge Plan Discharge Patient Disposition: Xfer SNF Condition: Stable Prescriptions: New ondansetron 4 mg tablet,disintegrating 4 mg PO Q8H PRN (Reason: nausea and vomiting) 3 Days Qty: 9 0RF enoxaparin 30 mg/0.3 mL syringe 30 mg SUBCUT DAILY 35 Days Qty: 10.5 0RF polysaccharide iron complex [Ferrex 150] 150 mg iron Capsule 150 mg PO BIDWM 60 Days Qty: 60 0RF tramadol 50 mg Tablet 50 mg PO Q4H PRN (Reason: Mild Pain) Qty: 15 0RF oxycodone 5 mg Tablet 5 mg PO Q4H PRN (Reason: Moderate Pain) Qty: 15 0RF calcium carbonate-vitamin D3 600 mg-10 mcg (400 unit) Tablet 1 tab PO BID Qty: 60 0RF sulfamethoxazole-trimethoprim [Bactrim DS] 800-160 mg tablet 1 tab PO BID Qty: 10 0RF pantoprazole 40 mg tablet,delayed release (DR/EC) 40 mg PO QAM 60 Days Qty: 60 0RF Continued multivitamin with minerals Tablet 1 tab PO DAILY escitalopram oxalate 10 mg tablet 10 mg PO DAILY quetiapine 50 mg tablet extended release 24 hr 50 mg PO BEDTIME memantine 21 mg capsule,sprinkle,ER 24hr 21 mg PO BEDTIME paliperidone [Invega] 6 mg tablet extended release 24hr 12 mg PO DAILY acetaminophen 500 mg Tablet 1,000 mg PO Q6H PRN (Reason: pain/fever) levothyroxine 125 mcg tablet 125 mcg PO QAM trazodone 50 mg Tablet 50 mg PO BEDTIME PRN (Reason: Sleep) 30 Days Qty: 30 1RF Electromyographic Technician OK for DC: Orthopedics Discharge Order = DC NOW: Discharge Order (Routine); Ordered 01/30/25 Ordered By: Pascale Culver Referrals: Matthew Mckenna DO [Physician, Orthopedics] - 02/13/25 10:00 am Discharge Diet: Regular Discharge Activity: Limit activity as instructed and Use walker/crutches as instructed Patient Instructions: Sulfamethoxazole/Trimethoprim (By mouth), Oxycodone, Rapid Release (By mouth), Tramadol (By mouth), Enoxaparin (By injection), Urinary Tract Infection in Women (GEN) Activity Restrictions/Additional Instructions: Orthopedic discharge instructions: Patient may weight-bear as tolerated to the operative lower extremity Posterior hip precautions (avoid excess excessive hip flexion past 90 degrees and internal rotation) Take DVT prophylaxis (blood thinner) as prescribed ) Take pain medication as prescribed Take antinausea medication as needed Supplement with Citracal vitamin D for bone health and healing Ice as needed for pain and swelling Leave Silverlon bandage dressing on for 7 days after that may remove, rinse incision with warm soapy water/shower pat dry keep clean dry and intact and redress with a clean dry dressing. No baths or soaks May supplement for pain with Tylenol [id number] as needed(1000 mg every 8 hours-do not exceed more than 3000mg in 24-hour period) Follow-up in the orthopedic office in 2 weeks from date of surgery Contact the office for any questions or concerns per (fevers, increased drainage or redness around the incision site etc.) Discharge Attestations Time Spent in Discharge Care*: greater than 30 min Specific Discharge Activities: educating patient, educating and/or supporting family/caregiver, discussing with pcp/other providers, discussing with case picker/social workers/dc planners, documenting/other paperwork and evaluating patient/reviewing data Status at Discharge: Cognitive status at discharge: mildly impaired cognition, Behavioral status at discharge: dependent in ADL's, Functional status at discharge: bed bound, Overall status at discharge: patient is progressing back to baseline Quality Metrics Clinical Quality Measures [ No reported AMI, CVA or VTE this stay] Coding Level of Care Code Acute Code for Chg Fwd Diagnoses Left displaced femoral neck fracture S72.002A Microcytic anemia D50.9 UTI (urinary tract infection) N39.0 Malnourished E46 Hypothyroid E03.9 Dementia F03.93 Dementia behavioral or psychological symptom: with mood disturbance Dementia severity: unspecified severity Dementia type: unspecified type Psychosis F29 Hypertension I10 Sinus tachycardia R00.0
--- NOTE | 2025-01-30 16:44 | PC.NURSE ---
All prescriptions e-scribed to [facility] except for the narcotics. Dr. Culver printed and signed prescriptions
--- NOTE | 2025-01-30 18:13 | PC.NURSE ---
Called report to Jayleen Brown LPN at [facility], RAIL CAR PAINTER/SANDBLASTER [id number].
== END 2025-01-30 17:45 | disposition skilled nursing facility (03) | DRG 522 ==
LOC: ER 09:43 → OR 09:58 → MEDSURG 12:30
PROVIDERS: Clinical Nurse Specialist Acute Care; Student in an Organized Health Care Education/Training Program; Admitting Provider Internal Medicine; Emergency Provider Emergency Medicine; Visit Provider Student in an Organized Health Care Education/Training Program
PROC: 0SRS0JZ Replacement of Left Hip Joint, Femoral Surface with Synthetic Substitute, Open Approach (ICD-10-PCS; CPT 27125; principal; 2025-01-28 10:00)
DX: S72.002A Fracture of unspecified part of neck of left femur, initial encounter for closed fracture (principal); N30.00 Acute cystitis without hematuria; E46 Unspecified protein-calorie malnutrition; W01.0XXA Fall on same level from slipping, tripping and stumbling without subsequent striking against object, initial encounter; D64.9 Anemia, unspecified; E87.6 Hypokalemia; Z68.26 Body mass index [BMI] 26.0-26.9, adult; E03.9 Hypothyroidism, unspecified; F03.90 Unspecified dementia, unspecified severity, without behavioral disturbance, psychotic disturbance, mood disturbance, and anxiety; I10 Essential (primary) hypertension; R00.0 Tachycardia, unspecified
CPT/HCPCS: 36415; 51702; 71045; 73502; 73610; 80048; 80053; 81001; 83735; 84100; 85025; 85610; 86850; 86900; 93005; 96372; 97162; 97530; 99285; A4216; C1713; C1776; J0131; J0690; J1100; J1630; J1650; J1885; J2371; J2405; J2470; J2704; J3010; J3373; J3490; J7030; J9999; P9045

== ENCOUNTER 2025-02-13 10:13 | Outpatient (CLI) | payer MEDICARE, MEDICAID, SELFPAY | END 2025-02-13 10:14 | disposition home or self-care (01) | PROVIDERS: Visit Provider Physician Assistant | DX: Z98.890 Other specified postprocedural states (principal); Z96.649 Presence of unspecified artificial hip joint | CPT/HCPCS: 73502; 99024 ==